=== PATIENT | male | born 1965 | race African-American/Black ===

== ENCOUNTER 2017-01-05 08:58 | Inpatient (IN) | payer OTHER ==
[2017-01-05 09:06] VITALS: BMI 32.1
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
[2017-01-05] MEDS ORDERED: MENTHOL/PHENOL 1 EACH UD MM PRN (12:08)
[2017-01-05] MEDS ORDERED: LOPERAMIDE HCL 2 MG CAPSULE PO PRN (12:08)
[2017-01-05] MEDS ORDERED: ACETAMINOPHEN 325 MG TABLET (FP) PO PRN (12:08)
[2017-01-05] MEDS ORDERED: hydrOXYzine PAMOATE 25 MG CAPSULE (FP) PO PRN (12:08)
[2017-01-05] MEDS ORDERED: MAGNESIUM HYDROX 2400MG/30ML ORAL SUSPENSION 30 ML CUP PO PRN (12:08)
[2017-01-05] MEDS ORDERED: IBUPROFEN 400 MG TABLET (FP) PO PRN (12:08)
[2017-01-05] MEDS ORDERED: MAGNESIUM CITRATE 300 ML BOTTLE PO PRN (12:08)
[2017-01-05] MEDS ORDERED: P-EPHED 60MG/TRIPROLIDI 2.5MG TABLET PO PRN (12:08)
[2017-01-05] MEDS ORDERED: NICOTINE POLACRILEX 4 MG GUM BUC PRN (12:08)
[2017-01-05] MEDS ORDERED: METHADONE HCL 10 MG TABLET (FOR DETOX USE ONLY) PO ONE ×2 (12:17→23:00)
[2017-01-05] MEDS ORDERED: LIDOCAINE VISCOUS 2% ORAL/TOP 20 ML UNIT-DOSE CUP MM PRN (12:38)
[2017-01-05] MEDS: chlordiazePOXIDE HCL 25 MG CAPSULE PO PRN (12:38)
[2017-01-05] MEDS: NICOTINE 21 MG/24 HOURS TOPICAL PATCH TD SCH (12:38)
[2017-01-05 14:17] LABS: HIV 1 & 2 AB NEGATIVE; HIV 1 AGp24 NEGATIVE
[2017-01-05 16:46] LABS: URINE APPEARANCE CLEAR; URINE BILIRUBIN NEGATIVE (NEGATIVE); URINE COLOR LTYELLOW; URINE GLUCOSE (UA) NEGATIVE (NEGATIVE); URINE KETONE NEGATIVE (NEGATIVE); URINE LEUK ESTERASE NEGATIVE (NEGATIVE); URINE NITRITE NEGATIVE (NEGATIVE); URINE PROTEIN NEGATIVE (NEGATIVE); URINE UROBILINOGEN NEGATIVE E.U./dl (0.2-1.0)
[2017-01-05] MEDS ORDERED: chlordiazePOXIDE HCL 25 MG CAPSULE PO SCH (17:00)
[2017-01-05] MEDS: AMOX TR/POT CLAV 875MG/125MG TABLETS (FP) PO SCH (17:16)
[2017-01-05] MEDS: chlordiazePOXIDE HCL 25 MG CAPSULE PO SCH ×2 (17:17→22:17)
[2017-01-05 17:31] LABS: URINE BLOOD 2+ (NEGATIVE)
[2017-01-05 17:36] LABS: URINE MUCUS RARE; URINE RBC 6 /hpf (0-3); URINE WBC 1 /hpf (3-5)
--- NOTE | 2017-01-05 21:34 | EKG ---
Test Reason : Blood Pressure : / mmHG Vent. Rate : 076 BPM Atrial Rate : 076 BPM P-R Int : 136 ms QRS Dur : 076 ms QT Int : 410 ms P-R-T Axes : 035 053 044 degrees QTc Int : 461 ms NORMAL SINUS RHYTHM NORMAL ECG WHEN COMPARED WITH ECG OF 31-MAR-2016 12:44, NO SIGNIFICANT CHANGE WAS FOUND Confirmed by MANSI ZULETA MD ([id number]) on 01/05/2017 9:33:49 PM Referred By: Ismael Winter Confirmed By:MANSI ZULETA MD
[2017-01-05] MEDS: THIAMINE HCL 100 MG TABLET (FP) PO SCH (22:16)
[2017-01-05] MEDS: diphenhydrAMINE HCL 50 MG CAPSULE PO PRN (22:17)
[2017-01-06] MEDS: chlordiazePOXIDE HCL 25 MG CAPSULE PO PRN ×2 (00:21→08:36)
[2017-01-06] MEDS: guaiFENesin/D-METHORPHAN HB 10 ML UNIT-DOSE CUPS PO PRN ×2 (00:21→08:36)
[2017-01-06] MEDS: diphenhydrAMINE HCL 50 MG CAPSULE PO PRN (00:21)
[2017-01-06] MEDS ORDERED: IBUPROFEN 400 MG TABLET (FP) PO ONE (03:03)
[2017-01-06] MEDS: CYCLOBENZAPRINE HCL 10 MG TABLET (FP) PO PRN (03:16)
[2017-01-06] MEDS: MAG HYDROX/AL HYDROX/SIMETH 30 ML UNIT-DOSE CUP PO PRN ×2 (03:16→19:09)
[2017-01-06] MEDS: chlordiazePOXIDE HCL 25 MG CAPSULE PO SCH ×4 (05:33→22:11)
[2017-01-06] MEDS: AMOX TR/POT CLAV 875MG/125MG TABLETS (FP) PO SCH ×2 (08:00→17:13)
[2017-01-06] MEDS ORDERED: METHADONE HCL 10 MG TABLET (FOR DETOX USE ONLY) PO SCH (10:00)
[2017-01-06 10:11] LABS: MCH 30.5 pg (25.7-33.7); MCHC 32.4 g/dl (32.0-35.9); MEAN CELL VOLUME 94.1 fl (80-96); MEAN PLT VOLUME 9.3 fl (7.5-11.1); PLATELET COUNT 280 K/MM3 (134-434); RDW 14.2 % (11.9-15.9); WHITE BLOOD COUNT 12.3 K/mm3 (4.0-10.0)
[2017-01-06] MEDS: PRENATAL VITAMINS W/ FOLIC ACID TABLET (FP) PO SCH (10:21)
[2017-01-06] MEDS: NICOTINE 21 MG/24 HOURS TOPICAL PATCH TD SCH (10:22)
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
[2017-01-06 10:33] LABS: ALBUMIN 4.2 g/dl (3.4-5.0); ANION GAP 10 (8-16); CO2 26 mmol/L (21-32); CREATININE 1.2 mg/dL (0.7-1.3); GLUCOSE,RANDOM 140 mg/dL (74-106); SGOT/AST 18 U/L (15-37)
--- NOTE | 2017-01-06 10:54 | PN ---
S CIWA - CIWA Score Nausea/Vomitin (DIARRHEA) Muscle Tremors: 4-Moderate,w/Arms Extend Anxiety: 4-Mod. Anxious/Guarded Agitation: 4-Moderately Restless Paroxysmal Sweats: 1-Minimal Palms Moist Orientation: 0-Oriented Tacttile Disturbances: 3-Moderate Itch/Numb/Burn Auditory Disturbances: 0-None Visual Disturbances: 0-None Headache: 0-None Present CIWA-Ar Total Score: 21 S COWS - Scale Resting Pulse: 0= [place] 80 or Below Sweatin= Chills/Flushing Restless Observation: 3= Extraneous Movement Pupil Size: 2= Moderately Dilated Bone or Joint Aches: 4=Acute Joint/Muscle Pain Runny Nose/ Eye Tearin= Nasal Congestion GI Upset > 30mins: 2= Nausea/Diarrhea Tremor Observation of Outstretched Hands: 1= Tremor [employer], Not Seen Yawning Observation: 1= 1-2x During Session Anxiety or Irritability: 2=Irritable/Anxious Goose Flesh Skin: 0=Smooth Skin COWS Score: 17 [facility] Progress Note (SOAP) Subjective: ANXIETY,IRRITABILITY,SWEATS,DIARRHEA,BODY ACHES,COUGH, INTERMITTENT SLEEP. Objective: 01/06/17 10:52 Vital Signs Temperature 96.3 F L 01/06/17 10:45 Pulse Rate 68 01/06/17 10:45 Respiratory Rate 20 01/06/17 10:45 Blood Pressure 132/84 01/06/17 10:45 O2 Sat by Pulse Oximetry (%) Laboratory Last Values WBC 12.3 K/mm3 (4.0-10.0) H D 01/06/17 06:20 RBC 4.38 M/mm3 (4.00-5.60) 01/06/17 06:20 Hgb 13.3 GM/dL (11.7-16.9) 01/06/17 06:20 Hct 41.2 % (35.4-49) 01/06/17 06:20 MCV 94.1 fl (80-96) 01/06/17 06:20 MCHC 32.4 g/dl (32.0-35.9) 01/06/17 06:20 RDW 14.2 % (11.9-15.9) 01/06/17 06:20 Plt Count 280 K/MM3 (134-434) D 01/06/17 06:20 MPV 9.3 fl (7.5-11.1) 01/06/17 06:20 POC Glucometer 128 UNITS (()) 01/06/17 05:35 Urine Color Ltyellow 01/05/17 14:00 Urine Appearance Clear 01/05/17 14:00 Urine pH 5.0 (5.0-8.0) 01/05/17 14:00 Ur Specific [place] 1.018 (1.001-1.035) 01/05/17 14:00 Urine Protein Negative (NEGATIVE) 01/05/17 14:00 Urine Glucose (UA) Negative (NEGATIVE) 01/05/17 14:00 Urine Ketones Negative (NEGATIVE) 01/05/17 14:00 Urine Blood 2+ (NEGATIVE) H 01/05/17 14:00 Urine Nitrite Negative (NEGATIVE) 01/05/17 14:00 Urine Bilirubin Negative (NEGATIVE) 01/05/17 14:00 Urine Urobilinogen Negative E.U./dl (0.2-1.0) 01/05/17 14:00 Ur Leukocyte Esterase Negative (NEGATIVE) 01/05/17 14:00 Urine RBC 6 /hpf (0-3) 01/05/17 14:00 Urine WBC 1 /hpf (3-5) 01/05/17 14:00 Urine Mucus Rare 01/05/17 14:00 HIV 1&2 Antibody Screen Negative 01/05/17 11:00 HIV P24 Antigen Negative 01/05/17 11:00 Assessment: 01/06/17 10:52 WITHDRAWAL SX Plan: CONTINUE DETOX ROBITUSSIN DM PRN IMODIUM PRN FLEXERIL DIRECTED
[2017-01-06 11:02] LABS: ALK PHOS 87 U/L (45-117); BILIRUBIN,TOTAL 0.4 mg/dL (0.2-1.0); SGPT/ALT 21 U/L (12-78); TOT PROT 7.5 g/dl (6.4-8.2)
[2017-01-06] MEDS ORDERED: QUEtiapine FUMARATE 50 MG TABLET PO STA (12:08)
[2017-01-06] MEDS ORDERED: chlordiazePOXIDE HCL 25 MG CAPSULE PO ONE (15:19)
[2017-01-06] MEDS ORDERED: QUEtiapine FUMARATE 50 MG TABLET PO SCH (22:00)
[2017-01-06] MEDS: THIAMINE HCL 100 MG TABLET (FP) PO SCH (22:11)
[2017-01-06] MEDS: QUEtiapine FUMARATE 100 MG TABLET (FP) PO SCH (22:11)
[2017-01-06] MEDS: ZOLPIDEM TARTRATE 10 MG TABLET (PARK CARE ONLY) PO PRN (22:12)
[2017-01-07] MEDS: diphenhydrAMINE HCL 50 MG CAPSULE PO PRN (01:38)
[2017-01-07] MEDS: guaiFENesin/D-METHORPHAN HB 10 ML UNIT-DOSE CUPS PO PRN (01:38)
[2017-01-07] MEDS: chlordiazePOXIDE HCL 25 MG CAPSULE PO PRN (01:38)
[2017-01-07] MEDS: CYCLOBENZAPRINE HCL 10 MG TABLET (FP) PO PRN (03:45)
[2017-01-07] MEDS: chlordiazePOXIDE HCL 25 MG CAPSULE PO SCH ×2 (06:02→10:49)
[2017-01-07] MEDS: AMOX TR/POT CLAV 875MG/125MG TABLETS (FP) PO SCH ×2 (07:48→17:39)
--- NOTE | 2017-01-07 10:40 | PN ---
[facility] CIWA - CIWA Score Nausea/Vomitin-No Nausea/No Vomiting Muscle Tremors: 4-Moderate,w/Arms Extend Anxiety: 4-Mod. Anxious/Guarded Agitation: 3 Paroxysmal Sweats: 1-Minimal Palms Moist Orientation: 0-Oriented Tacttile Disturbances: 3-Moderate Itch/Numb/Burn Auditory Disturbances: 0-None Visual Disturbances: 0-None Headache: 0-None Present CIWA-Ar Total Score: 15 [facility] COWS - Scale Resting Pulse: 0= [place] 80 or Below Sweatin= Chills/Flushing Restless Observation: 3= Extraneous Movement Pupil Size: 2= Moderately Dilated Bone or Joint Aches: 4=Acute Joint/Muscle Pain Runny Nose/ Eye Tearin= Runny Nose/Eyes GI Upset > 30mins: 1= Stomach Cramp Tremor Observation of Outstretched Hands: 1= Tremor [place], Not Seen Yawning Observation: 1= 1-2x During Session Anxiety or Irritability: 2=Irritable/Anxious Goose Flesh Skin: 0=Smooth Skin COWS Score: 17 [facility] Progress Note (SOAP) Subjective: ANXIETY,SWEATS/CHILLS,TREMORS, BODY ACHES,FATIGUE,INTERMITTENT SLEEP. Objective: 01/07/17 10:40 Vital Signs Temperature 98.2 F 01/07/17 09:58 Pulse Rate 78 01/07/17 09:58 Respiratory Rate 18 01/07/17 09:58 Blood Pressure 131/87 01/07/17 09:58 O2 Sat by Pulse Oximetry (%) Laboratory Last Values WBC 12.3 K/mm3 (4.0-10.0) H D 01/06/17 06:20 RBC 4.38 M/mm3 (4.00-5.60) 01/06/17 06:20 Hgb 13.3 GM/dL (11.7-16.9) 01/06/17 06:20 Hct 41.2 % (35.4-49) 01/06/17 06:20 MCV 94.1 fl (80-96) 01/06/17 06:20 MCHC 32.4 g/dl (32.0-35.9) 01/06/17 06:20 RDW 14.2 % (11.9-15.9) 01/06/17 06:20 Plt Count 280 K/MM3 (134-434) D 01/06/17 06:20 MPV 9.3 fl (7.5-11.1) 01/06/17 06:20 Sodium 142 mmol/L (136-145) 01/06/17 06:20 Potassium 4.2 mmol/L (3.5-5.1) 01/06/17 06:20 Chloride 106 mmol/L (98-107) 01/06/17 06:20 Carbon Dioxide 26 mmol/L (21-32) 01/06/17 06:20 Anion Gap 10 (8-16) 01/06/17 06:20 BUN 13 mg/dL (7-18) 01/06/17 06:20 Creatinine 1.2 mg/dL (0.7-1.3) 01/06/17 06:20 Creat Clearance w eGFR > 60 (>60) 01/06/17 06:20 POC Glucometer 123 UNITS (()) 01/07/17 06:03 Random Glucose 140 mg/dL (74-106) H D 01/06/17 06:20 Calcium 9.0 mg/dL (8.5-10.1) 01/06/17 06:20 Total Bilirubin 0.4 mg/dL (0.2-1.0) 01/06/17 06:20 AST 18 U/L (15-37) 01/06/17 06:20 ALT 21 U/L (12-78) D 01/06/17 06:20 Alkaline Phosphatase 87 U/L (45-117) D 01/06/17 06:20 Total Protein 7.5 g/dl (6.4-8.2) 01/06/17 06:20 Albumin 4.2 g/dl (3.4-5.0) 01/06/17 06:20 Urine Color Ltyellow 01/05/17 14:00 Urine Appearance Clear 01/05/17 14:00 Urine pH 5.0 (5.0-8.0) 01/05/17 14:00 Ur Specific [place] 1.018 (1.001-1.035) 01/05/17 14:00 Urine Protein Negative (NEGATIVE) 01/05/17 14:00 Urine Glucose (UA) Negative (NEGATIVE) 01/05/17 14:00 Urine Ketones Negative (NEGATIVE) 01/05/17 14:00 Urine Blood 2+ (NEGATIVE) H 01/05/17 14:00 Urine Nitrite Negative (NEGATIVE) 01/05/17 14:00 Urine Bilirubin Negative (NEGATIVE) 01/05/17 14:00 Urine Urobilinogen Negative E.U./dl (0.2-1.0) 01/05/17 14:00 Ur Leukocyte Esterase Negative (NEGATIVE) 01/05/17 14:00 Urine RBC 6 /hpf (0-3) 01/05/17 14:00 Urine WBC 1 /hpf (3-5) 01/05/17 14:00 Urine Mucus Rare 01/05/17 14:00 RPR Titer Nonreactive (NONREACTIVE) 01/06/17 06:20 HIV 1&2 Antibody Screen Negative 01/05/17 11:00 HIV P24 Antigen Negative 01/05/17 11:00 Assessment: 01/07/17 10:40 WITHDRAWAL SX Plan: CONTINUE DETOX
[2017-01-07] MEDS: PRENATAL VITAMINS W/ FOLIC ACID TABLET (FP) PO SCH (10:49)
[2017-01-07] MEDS: METHADONE HCL 5 MG TABLET (FOR DETOX USE ONLY) PO SCH (10:49)
[2017-01-07] MEDS: NICOTINE 21 MG/24 HOURS TOPICAL PATCH TD SCH (10:50)
[2017-01-07] MEDS ORDERED: QUEtiapine FUMARATE 100 MG TABLET (FP) PO STA (13:59)
[2017-01-07] MEDS: CYCLOBENZAPRINE HCL 10 MG TABLET (FP) PO SCH ×2 (14:11→22:17)
[2017-01-07] MEDS: QUEtiapine FUMARATE 100 MG TABLET (FP) PO SCH ×2 (14:23→22:16)
--- NOTE | 2017-01-07 14:25 | PN ---
[facility] Progress Note Note: C/O LEFT LOWER ABDOMEN DISCOMFORT X 24 HRS. EXAM: SOFT SLIGHT TENDERNESS TO PALPATION. NO SWELLING NOTED. PLAN:INCREASE PO FLUIDS FLEXERIL AND MOTRIN DIRECTED.
[2017-01-07] MEDS: chlordiazePOXIDE 5 MG CAPSULE PO SCH ×2 (17:39→22:17)
[2017-01-07] MEDS: MAG HYDROX/AL HYDROX/SIMETH 30 ML UNIT-DOSE CUP PO PRN (19:50)
[2017-01-07] MEDS: ZOLPIDEM TARTRATE 10 MG TABLET (PARK CARE ONLY) PO PRN (22:16)
[2017-01-07] MEDS: THIAMINE HCL 100 MG TABLET (FP) PO SCH (22:16)
[2017-01-08] MEDS: diphenhydrAMINE HCL 50 MG CAPSULE PO PRN (00:34)
[2017-01-08] MEDS: chlordiazePOXIDE 5 MG CAPSULE PO SCH ×2 (05:41→10:31)
[2017-01-08] MEDS: CYCLOBENZAPRINE HCL 10 MG TABLET (FP) PO SCH ×3 (05:41→22:23)
[2017-01-08] MEDS: AMOX TR/POT CLAV 875MG/125MG TABLETS (FP) PO SCH ×2 (07:33→17:09)
--- NOTE | 2017-01-08 10:02 | PN ---
[facility] Progress Note (SOAP) Subjective: Pt. c/o lt. sided abd. pain with a mass in lt. groin. Objective: 01/08/17 09:59 Vital Signs - 8 hr 01/08/17 01/08/17 03:30 06:31 Temperature 97.6 F Pulse Rate 80 Respiratory 18 18 Rate Blood Pressure 115/73 Laboratory Last Values WBC 12.3 K/mm3 (4.0-10.0) H D 01/06/17 06:20 RBC 4.38 M/mm3 (4.00-5.60) 01/06/17 06:20 Hgb 13.3 GM/dL (11.7-16.9) 01/06/17 06:20 Hct 41.2 % (35.4-49) 01/06/17 06:20 MCV 94.1 fl (80-96) 01/06/17 06:20 MCHC 32.4 g/dl (32.0-35.9) 01/06/17 06:20 RDW 14.2 % (11.9-15.9) 01/06/17 06:20 Plt Count 280 K/MM3 (134-434) D 01/06/17 06:20 MPV 9.3 fl (7.5-11.1) 01/06/17 06:20 Sodium 142 mmol/L (136-145) 01/06/17 06:20 Potassium 4.2 mmol/L (3.5-5.1) 01/06/17 06:20 Chloride 106 mmol/L (98-107) 01/06/17 06:20 Carbon Dioxide 26 mmol/L (21-32) 01/06/17 06:20 Anion Gap 10 (8-16) 01/06/17 06:20 BUN 13 mg/dL (7-18) 01/06/17 06:20 Creatinine 1.2 mg/dL (0.7-1.3) 01/06/17 06:20 Creat Clearance w eGFR > 60 (>60) 01/06/17 06:20 POC Glucometer 124 UNITS (()) 01/08/17 05:50 Random Glucose 140 mg/dL (74-106) H D 01/06/17 06:20 Calcium 9.0 mg/dL (8.5-10.1) 01/06/17 06:20 Total Bilirubin 0.4 mg/dL (0.2-1.0) 01/06/17 06:20 AST 18 U/L (15-37) 01/06/17 06:20 ALT 21 U/L (12-78) D 01/06/17 06:20 Alkaline Phosphatase 87 U/L (45-117) D 01/06/17 06:20 Total Protein 7.5 g/dl (6.4-8.2) 01/06/17 06:20 Albumin 4.2 g/dl (3.4-5.0) 01/06/17 06:20 Urine Color Ltyellow 01/05/17 14:00 Urine Appearance Clear 01/05/17 14:00 Urine pH 5.0 (5.0-8.0) 01/05/17 14:00 Ur Specific [place] 1.018 (1.001-1.035) 01/05/17 14:00 Urine Protein Negative (NEGATIVE) 01/05/17 14:00 Urine Glucose (UA) Negative (NEGATIVE) 01/05/17 14:00 Urine Ketones Negative (NEGATIVE) 01/05/17 14:00 Urine Blood 2+ (NEGATIVE) H 01/05/17 14:00 Urine Nitrite Negative (NEGATIVE) 01/05/17 14:00 Urine Bilirubin Negative (NEGATIVE) 01/05/17 14:00 Urine Urobilinogen Negative E.U./dl (0.2-1.0) 01/05/17 14:00 Ur Leukocyte Esterase Negative (NEGATIVE) 01/05/17 14:00 Urine RBC 6 /hpf (0-3) 01/05/17 14:00 Urine WBC 1 /hpf (3-5) 01/05/17 14:00 Urine Mucus Rare 01/05/17 14:00 RPR Titer Nonreactive (NONREACTIVE) 01/06/17 06:20 HIV 1&2 Antibody Screen Negative 01/05/17 11:00 HIV P24 Antigen Negative 01/05/17 11:00 Exam Abd. : Normoactive BS, very tender LUQ, a small mass lt. groin most likely a lymph node. Assessment: 01/08/17 10:01 Withdrawal sx. Abdominal pain Plan: continue detox KUB
[2017-01-08] MEDS: METHADONE HCL 5 MG TABLET (FOR DETOX USE ONLY) PO SCH (10:30)
[2017-01-08] MEDS: PRENATAL VITAMINS W/ FOLIC ACID TABLET (FP) PO SCH (10:30)
[2017-01-08] MEDS: NICOTINE 21 MG/24 HOURS TOPICAL PATCH TD SCH (10:31)
[2017-01-08] MEDS: QUEtiapine FUMARATE 100 MG TABLET (FP) PO SCH ×2 (10:33→22:23)
[2017-01-08] MEDS: chlordiazePOXIDE HCL 10 MG CAPSULE PO SCH ×2 (17:09→22:23)
[2017-01-08] MEDS ORDERED: INSULIN (NOVOLOG) ASPART 100 UNITS/ML 10ML VIAL ONE (17:12)
[2017-01-08] MEDS: INSULIN SLIDING SCALE (NOVOLOG) 1 VIAL SQ SCH (17:14)
[2017-01-08] MEDS: MAG HYDROX/AL HYDROX/SIMETH 30 ML UNIT-DOSE CUP PO PRN (20:20)
[2017-01-08] MEDS: THIAMINE HCL 100 MG TABLET (FP) PO SCH (22:23)
[2017-01-08] MEDS: ZOLPIDEM TARTRATE 10 MG TABLET (PARK CARE ONLY) PO PRN (22:23)
[2017-01-09] MEDS: chlordiazePOXIDE HCL 10 MG CAPSULE PO SCH ×2 (06:31→10:20)
[2017-01-09] MEDS ORDERED: CYCLOBENZAPRINE HCL 10 MG TABLET (FP) ONE (06:33)
[2017-01-09] MEDS: CYCLOBENZAPRINE HCL 10 MG TABLET (FP) PO SCH ×3 (06:34→22:25)
[2017-01-09] MEDS: INSULIN SLIDING SCALE (NOVOLOG) 1 VIAL SQ SCH ×2 (07:30→16:34)
[2017-01-09] MEDS: AMOX TR/POT CLAV 875MG/125MG TABLETS (FP) PO SCH ×2 (08:52→17:22)
[2017-01-09] MEDS ORDERED: METHADONE HCL 10 MG TABLET (FOR DETOX USE ONLY) PO SCH (10:00)
[2017-01-09] MEDS: PRENATAL VITAMINS W/ FOLIC ACID TABLET (FP) PO SCH (10:19)
[2017-01-09] MEDS: NICOTINE 21 MG/24 HOURS TOPICAL PATCH TD SCH (10:19)
[2017-01-09] MEDS: QUEtiapine FUMARATE 100 MG TABLET (FP) PO SCH ×2 (10:20→22:25)
--- NOTE | 2017-01-09 11:26 | PN ---
S Progress Note (SOAP) Subjective: Interrupted sleep, slight anxiety, reports constipation, Objective: Vital Signs Temperature 95.3 F L 01/09/17 09:49 Pulse Rate 86 01/09/17 09:49 Respiratory Rate 18 01/09/17 09:49 Blood Pressure 130/80 01/09/17 09:49 O2 Sat by Pulse Oximetry (%) Laboratory Last Values WBC 12.3 K/mm3 (4.0-10.0) H D 01/06/17 06:20 RBC 4.38 M/mm3 (4.00-5.60) 01/06/17 06:20 Hgb 13.3 GM/dL (11.7-16.9) 01/06/17 06:20 Hct 41.2 % (35.4-49) 01/06/17 06:20 MCV 94.1 fl (80-96) 01/06/17 06:20 MCHC 32.4 g/dl (32.0-35.9) 01/06/17 06:20 RDW 14.2 % (11.9-15.9) 01/06/17 06:20 Plt Count 280 K/MM3 (134-434) D 01/06/17 06:20 MPV 9.3 fl (7.5-11.1) 01/06/17 06:20 Sodium 142 mmol/L (136-145) 01/06/17 06:20 Potassium 4.2 mmol/L (3.5-5.1) 01/06/17 06:20 Chloride 106 mmol/L (98-107) 01/06/17 06:20 Carbon Dioxide 26 mmol/L (21-32) 01/06/17 06:20 Anion Gap 10 (8-16) 01/06/17 06:20 BUN 13 mg/dL (7-18) 01/06/17 06:20 Creatinine 1.2 mg/dL (0.7-1.3) 01/06/17 06:20 Creat Clearance w eGFR > 60 (>60) 01/06/17 06:20 POC Glucometer 103 UNITS (()) 01/09/17 06:38 Random Glucose 140 mg/dL (74-106) H D 01/06/17 06:20 Calcium 9.0 mg/dL (8.5-10.1) 01/06/17 06:20 Total Bilirubin 0.4 mg/dL (0.2-1.0) 01/06/17 06:20 AST 18 U/L (15-37) 01/06/17 06:20 ALT 21 U/L (12-78) D 01/06/17 06:20 Alkaline Phosphatase 87 U/L (45-117) D 01/06/17 06:20 Total Protein 7.5 g/dl (6.4-8.2) 01/06/17 06:20 Albumin 4.2 g/dl (3.4-5.0) 01/06/17 06:20 Urine Color Ltyellow 01/05/17 14:00 Urine Appearance Clear 01/05/17 14:00 Urine pH 5.0 (5.0-8.0) 01/05/17 14:00 Ur Specific [place] 1.018 (1.001-1.035) 01/05/17 14:00 Urine Protein Negative (NEGATIVE) 01/05/17 14:00 Urine Glucose (UA) Negative (NEGATIVE) 01/05/17 14:00 Urine Ketones Negative (NEGATIVE) 01/05/17 14:00 Urine Blood 2+ (NEGATIVE) H 01/05/17 14:00 Urine Nitrite Negative (NEGATIVE) 01/05/17 14:00 Urine Bilirubin Negative (NEGATIVE) 01/05/17 14:00 Urine Urobilinogen Negative E.U./dl (0.2-1.0) 01/05/17 14:00 Ur Leukocyte Esterase Negative (NEGATIVE) 01/05/17 14:00 Urine RBC 6 /hpf (0-3) 01/05/17 14:00 Urine WBC 1 /hpf (3-5) 01/05/17 14:00 Urine Mucus Rare 01/05/17 14:00 RPR Titer Nonreactive (NONREACTIVE) 01/06/17 06:20 HIV 1&2 Antibody Screen Negative 01/05/17 11:00 HIV P24 Antigen Negative 01/05/17 11:00 labs noted Assessment: withdrawal symptoms Plan: Bowel regimen added continue detox
[2017-01-09] MEDS ORDERED: SODIUM PHOSPHATE/NA BIPHOS 133 ML ENEMA PR ONE (15:21)
[2017-01-09] MEDS: ZOLPIDEM TARTRATE 10 MG TABLET (PARK CARE ONLY) PO PRN (21:59)
[2017-01-09] MEDS ORDERED: DOCUSATE SODIUM 100 MG CAPSULE (FP) PO SCH (22:00)
[2017-01-09] MEDS: THIAMINE HCL 100 MG TABLET (FP) PO SCH (22:25)
[2017-01-09] MEDS: MAG HYDROX/AL HYDROX/SIMETH 30 ML UNIT-DOSE CUP PO PRN (23:07)
[2017-01-10] MEDS: diphenhydrAMINE HCL 50 MG CAPSULE PO PRN (00:34)
[2017-01-10] MEDS ORDERED: METHADONE HCL 5 MG TABLET (FOR DETOX USE ONLY) PO SCH (06:00)
[2017-01-10] MEDS: CYCLOBENZAPRINE HCL 10 MG TABLET (FP) PO SCH (06:23)
[2017-01-10 07:01] VITALS: BP 107/74; PULSE 77; TEMP 95.8
[2017-01-10] MEDS: AMOX TR/POT CLAV 875MG/125MG TABLETS (FP) PO SCH (07:03)
[2017-01-10] MEDS: INSULIN SLIDING SCALE (NOVOLOG) 1 VIAL SQ SCH (07:04)
--- NOTE | 2017-01-10 12:04 | DS ---
[facility] Detox Discharge Summary Admission Date: 01/05/17 Discharge Date: 01/10/17 - History Present History: Alcohol Dependence, Opioid Dependence Pertinent Past History: HTN, GERD, DMT2, HLD - Physical Exam Results Vital Signs: Vital Signs Temperature 95.8 F L 01/10/17 07:01 Pulse Rate 77 01/10/17 07:01 Respiratory Rate 16 01/10/17 07:01 Blood Pressure 107/74 01/10/17 07:01 O2 Sat by Pulse Oximetry (%) Pertinent Admission Physical Exam Findings: Withdrawal symptoms Laboratory Tests 01/05/17 01/05/17 01/05/17 10:51 11:00 14:00 WBC RBC Hgb Hct MCV MCHC RDW Plt Count MPV Sodium Potassium Chloride Carbon Dioxide Anion Gap BUN Creatinine Creat Clearance w eGFR POC Glucometer 111 Random Glucose Calcium Total Bilirubin AST ALT Alkaline Phosphatase Total Protein Albumin Urine Color Ltyellow Urine Appearance Clear Urine pH 5.0 Ur Specific [place] 1.018 Urine Protein Negative Urine Glucose (UA) Negative Urine Ketones Negative Urine Blood 2+ H Urine Nitrite Negative Urine Bilirubin Negative Urine Urobilinogen Negative Ur Leukocyte Esterase Negative Urine RBC 6 Urine WBC 1 Urine Mucus Rare RPR Titer HIV 1&2 Antibody Screen Negative HIV P24 Antigen Negative 01/05/17 01/06/17 01/06/17 16:16 05:35 06:20 WBC 12.3 H D RBC 4.38 Hgb 13.3 Hct 41.2 MCV 94.1 MCHC 32.4 RDW 14.2 Plt Count 280 D MPV 9.3 Sodium Potassium Chloride Carbon Dioxide Anion Gap BUN Creatinine Creat Clearance w eGFR POC Glucometer 136 128 Random Glucose Calcium Total Bilirubin AST ALT Alkaline Phosphatase Total Protein Albumin Urine Color Urine Appearance Urine pH Ur Specific [place] Urine Protein Urine Glucose (UA) Urine Ketones Urine Blood Urine Nitrite Urine Bilirubin Urine Urobilinogen Ur Leukocyte Esterase Urine RBC Urine WBC Urine Mucus RPR Titer HIV 1&2 Antibody Screen HIV P24 Antigen 01/06/17 01/06/17 01/06/17 06:20 06:20 16:13 WBC RBC Hgb Hct MCV MCHC RDW Plt Count MPV Sodium 142 Potassium 4.2 Chloride 106 Carbon Dioxide 26 Anion Gap 10 BUN 13 Creatinine 1.2 Creat Clearance w eGFR > 60 POC Glucometer 116 Random Glucose 140 H D Calcium 9.0 Total Bilirubin 0.4 AST 18 ALT 21 D Alkaline Phosphatase 87 D Total Protein 7.5 Albumin 4.2 Urine Color Urine Appearance Urine pH Ur Specific [place] Urine Protein Urine Glucose (UA) Urine Ketones Urine Blood Urine Nitrite Urine Bilirubin Urine Urobilinogen Ur Leukocyte Esterase Urine RBC Urine WBC Urine Mucus RPR Titer Nonreactive HIV 1&2 Antibody Screen HIV P24 Antigen 01/07/17 01/07/17 01/08/17 06:03 16:21 05:50 WBC RBC Hgb Hct MCV MCHC RDW Plt Count MPV Sodium Potassium Chloride Carbon Dioxide Anion Gap BUN Creatinine Creat Clearance w eGFR POC Glucometer 123 124 124 Random Glucose Calcium Total Bilirubin AST ALT Alkaline Phosphatase Total Protein Albumin Urine Color Urine Appearance Urine pH Ur Specific [place] Urine Protein Urine Glucose (UA) Urine Ketones Urine Blood Urine Nitrite Urine Bilirubin Urine Urobilinogen Ur Leukocyte Esterase Urine RBC Urine WBC Urine Mucus RPR Titer HIV 1&2 Antibody Screen HIV P24 Antigen 01/08/17 01/09/17 01/09/17 16:24 06:38 16:23 WBC RBC Hgb Hct MCV MCHC RDW Plt Count MPV Sodium Potassium Chloride Carbon Dioxide Anion Gap BUN Creatinine Creat Clearance w eGFR POC Glucometer 213 103 142 Random Glucose Calcium Total Bilirubin AST ALT Alkaline Phosphatase Total Protein Albumin Urine Color Urine Appearance Urine pH Ur Specific [place] Urine Protein Urine Glucose (UA) Urine Ketones Urine Blood Urine Nitrite Urine Bilirubin Urine Urobilinogen Ur Leukocyte Esterase Urine RBC Urine WBC Urine Mucus RPR Titer HIV 1&2 Antibody Screen HIV P24 Antigen 01/10/17 06:25 WBC RBC Hgb Hct MCV MCHC RDW Plt Count MPV Sodium Potassium Chloride Carbon Dioxide Anion Gap BUN Creatinine Creat Clearance w eGFR POC Glucometer 137 Random Glucose Calcium Total Bilirubin AST ALT Alkaline Phosphatase Total Protein Albumin Urine Color Urine Appearance Urine pH Ur Specific [place] Urine Protein Urine Glucose (UA) Urine Ketones Urine Blood Urine Nitrite Urine Bilirubin Urine Urobilinogen Ur Leukocyte Esterase Urine RBC Urine WBC Urine Mucus RPR Titer HIV 1&2 Antibody Screen HIV P24 Antigen Labs noted - Treatment Hospital Course: Detox Protocol Followed, Detoxed Safely, Responded well, Discharged Condition Good - Medication Discharge Medications: Ambulatory Orders Quetiapine Fumarate [Seroquel -] 300 mg PO HS #30 tab 07/23/16 Zolpidem Tartrate [Ambien] 10 mg PO HS 01/05/17 Quetiapine Fumarate [Seroquel] 100 mg PO HS #30 tablet 01/06/17 - Diagnosis (1) Alcohol dependence with uncomplicated withdrawal Status: Acute (2) Nicotine dependence Status: Chronic Qualifiers: Nicotine product type: cigarettes Substance use status: uncomplicated Qualified Code(s): F17.210 - Nicotine dependence, cigarettes, uncomplicated (3) Opioid dependence with withdrawal Status: Acute (4) Bipolar II disorder Status: Chronic (5) DM (diabetes mellitus), type 2 with peripheral vascular complications Status: Chronic (6) GERD (gastroesophageal reflux disease) Status: Chronic Qualifiers: Esophagitis presence: without esophagitis Qualified Code(s): K21.9 - Gastro-esophageal reflux disease without esophagitis (7) Hypercholesteremia Status: Chronic (8) Hypertension Status: Chronic Qualifiers: Hypertension type: essential hypertension Qualified Code(s): I10 - Essential (primary) hypertension - AMA Did Patient Leave Against Medical Advice: No
== END 2017-01-10 09:20 | disposition home or self-care (01) | DRG 773 ==
LOC: YASAS 08:58 → Y3N 11:54
PROVIDERS: ADMIT Internal Medicine; ATTEND Internal Medicine
PROC: HZ2ZZZZ Detoxification Services for Substance Abuse Treatment (ICD-10-PCS; principal; 2017-01-10)
DX: F11.23 Opioid dependence with withdrawal (principal); F10.230 Alcohol dependence with withdrawal, uncomplicated; F17.210 Nicotine dependence, cigarettes, uncomplicated; F31.81 Bipolar II disorder; I10 Essential (primary) hypertension; E11.51 Type 2 diabetes mellitus with diabetic peripheral angiopathy without gangrene; Z79.4 Long term (current) use of insulin; K21.9 Gastro-esophageal reflux disease without esophagitis; E78.00 Pure hypercholesterolemia, unspecified; G47.00 Insomnia, unspecified; Z86.73 Personal history of transient ischemic attack (TIA), and cerebral infarction without residual deficits
CPT/HCPCS: 36415; 74000-TC; 80053; 81003; 81015; 85027; 86593; 87389; 93005; 93010

== ENCOUNTER 2017-02-24 09:19 | Inpatient (IN) | payer OTHER ==
[~2017-02-24 09:19] MED LIST: QUEtiapine FUMARATE 50 MG TABLET PO ONE
[2017-02-24 09:55] VITALS: BMI 33.0
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
[2017-02-24] MEDS ORDERED: NICOTINE POLACRILEX 4 MG GUM BC PRN (11:51)
[2017-02-24] MEDS ORDERED: ACETAMINOPHEN 325 MG TABLET (FP) PO PRN (11:51)
[2017-02-24] MEDS ORDERED: MAGNESIUM HYDROX 2400MG/30ML ORAL SUSPENSION 30 ML CUP PO PRN (11:51)
[2017-02-24] MEDS ORDERED: guaiFENesin/D-METHORPHAN HB 10 ML UNIT-DOSE CUPS PO PRN (11:51)
[2017-02-24] MEDS ORDERED: P-EPHED 60MG/TRIPROLIDI 2.5MG TABLET PO PRN (11:51)
[2017-02-24] MEDS ORDERED: MAGNESIUM CITRATE 300 ML BOTTLE PO PRN (11:51)
[2017-02-24] MEDS ORDERED: LOPERAMIDE HCL 2 MG CAPSULE PO PRN (11:51)
[2017-02-24] MEDS ORDERED: IBUPROFEN 400 MG TABLET (FP) PO PRN (11:51)
[2017-02-24] MEDS ORDERED: MENTHOL/PHENOL 1 EACH UD MM PRN (11:51)
[2017-02-24] MEDS ORDERED: chlordiazePOXIDE HCL 25 MG CAPSULE PO PRN (13:07)
[2017-02-24] MEDS: AMOXICILLIN 250 MG CAPSULE PO SCH ×2 (13:49→22:47)
[2017-02-24] MEDS: chlordiazePOXIDE HCL 25 MG CAPSULE PO PRN (13:50)
[2017-02-24] MEDS ORDERED: METHADONE HCL 10 MG TABLET (FOR DETOX USE ONLY) PO ONE ×2 (14:00→23:00)
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
[2017-02-24 16:57] LABS: URINE APPEARANCE CLEAR; URINE BILIRUBIN NEGATIVE (NEGATIVE); URINE COLOR STRAW; URINE GLUCOSE (UA) NEGATIVE (NEGATIVE); URINE KETONE NEGATIVE (NEGATIVE); URINE LEUK ESTERASE NEGATIVE (NEGATIVE); URINE NITRITE NEGATIVE (NEGATIVE); URINE PROTEIN NEGATIVE (NEGATIVE); URINE UROBILINOGEN NEGATIVE E.U./dl (0.2-1.0)
[2017-02-24] MEDS ORDERED: chlordiazePOXIDE HCL 25 MG CAPSULE PO SCH (17:00)
[2017-02-24 17:02] LABS: URINE BLOOD 1+ (NEGATIVE)
[2017-02-24 17:07] LABS: URINE RBC <1 /hpf (0-3); URINE WBC 1 /hpf (3-5)
[2017-02-24] MEDS ORDERED: QUEtiapine FUMARATE 50 MG TABLET PO ONE (17:30)
[2017-02-24] MEDS: chlordiazePOXIDE HCL 25 MG CAPSULE PO SCH ×2 (17:38→22:46)
[2017-02-24] MEDS: hydrOXYzine PAMOATE 25 MG CAPSULE (FP) PO PRN (19:54)
[2017-02-24] MEDS: THIAMINE HCL 100 MG TABLET (FP) PO SCH (22:46)
[2017-02-24] MEDS: QUEtiapine FUMARATE 200 MG TABLET PO SCH (22:46)
[2017-02-25] MEDS: diphenhydrAMINE HCL 50 MG CAPSULE PO PRN ×2 (00:44→22:32)
[2017-02-25] MEDS: chlordiazePOXIDE HCL 25 MG CAPSULE PO PRN ×2 (03:23→20:06)
[2017-02-25] MEDS: chlordiazePOXIDE HCL 25 MG CAPSULE PO SCH ×4 (05:17→22:31)
[2017-02-25] MEDS: AMOXICILLIN 250 MG CAPSULE PO SCH (05:18)
--- NOTE | 2017-02-25 09:20 | PN ---
[facility] CIWA - CIWA Score Nausea/Vomitin Muscle Tremors: 2 Anxiety: 2 Agitation: 2 Paroxysmal Sweats: 3 Orientation: 3-Disoriented Date>2 days Tacttile Disturbances: 2-Mild Itch/Numbness/Burn Auditory Disturbances: 0-None Visual Disturbances: 0-None Headache: 0-None Present CIWA-Ar Total Score: 17 [facility] COWS - Scale Resting Pulse: 0= [place] 80 or Below Sweatin= Chills/Flushing Restless Observation: 1= Difficult to Sit Still Pupil Size: 1= Pupils >than Normal Bone or Joint Aches: 2= Severe Diffuse Aches Runny Nose/ Eye Tearin= Nasal Congestion GI Upset > 30mins: 2= Nausea/Diarrhea Tremor Observation of Outstretched Hands: 1= Tremor [place], Not Seen Yawning Observation: 0= None Anxiety or Irritability: 2=Irritable/Anxious Goose Flesh Skin: 0=Smooth Skin COWS Score: 11 [facility] Progress Note (SOAP) Subjective: interrupted sleep, sweats, nausea, joint pains Objective: 02/25/17 09:18 Vital Signs Temperature 97.9 F 02/25/17 06:53 Pulse Rate 62 02/25/17 06:53 Respiratory Rate 16 02/25/17 06:53 Blood Pressure 98/60 02/25/17 06:53 O2 Sat by Pulse Oximetry (%) Laboratory Tests 02/24/17 02/24/17 02/25/17 10:24 13:00 06:13 POC Glucometer 125 96 Urine Color Straw Urine Appearance Clear Urine pH 5.0 Ur Specific [place] 1.013 Urine Protein Negative Urine Glucose (UA) Negative Urine Ketones Negative Urine Blood 1+ H Urine Nitrite Negative Urine Bilirubin Negative Urine Urobilinogen Negative Ur Leukocyte Esterase Negative Urine RBC <1 Urine WBC 1 Ur Epithelial Cells Rare pending labs pt aox3 ambulating in nad Assessment: 02/25/17 09:19 withdrawal sx' insomnia Plan: cont detox increase fluids f/up pending labs pysch for sleep meds
[2017-02-25 09:49] LABS: MCH 32.2 pg (25.7-33.7); MCHC 33.8 g/dl (32.0-35.9); MEAN CELL VOLUME 95.5 fl (80-96); MEAN PLT VOLUME 8.8 fl (7.5-11.1); PLATELET COUNT 284 K/MM3 (134-434); RDW 13.9 % (11.9-15.9); WHITE BLOOD COUNT 9.2 K/mm3 (4.0-10.0)
[2017-02-25] MEDS ORDERED: METHADONE HCL 10 MG TABLET (FOR DETOX USE ONLY) PO SCH (10:00)
[2017-02-25 10:15] LABS: ALK PHOS 81 U/L (45-117); ANION GAP 11 (8-16); BILIRUBIN,TOTAL 0.5 mg/dL (0.2-1.0); CALCIUM 8.7 mg/dL (8.5-10.1); CO2 25 mmol/L (21-32); COCKROFT - GAULT 121.6; GLUCOSE,RANDOM 124 mg/dL (74-106); SGOT/AST 18 U/L (15-37); SGPT/ALT 23 U/L (12-78); TOT PROT 7.7 g/dl (6.4-8.2)
[2017-02-25] MEDS: PRENATAL VITAMINS W/ FOLIC ACID TABLET (FP) PO SCH (10:33)
[2017-02-25] MEDS: ASPIRIN 81 MG CHEWABLE TABLETS PO SCH (10:33)
[2017-02-25] MEDS: NICOTINE 21 MG/24 HOURS TOPICAL PATCH TD SCH (10:34)
--- NOTE | 2017-02-25 11:48 | EKG ---
Test Reason : Blood Pressure : / mmHG Vent. Rate : 078 BPM Atrial Rate : 078 BPM P-R Int : 150 ms QRS Dur : 068 ms QT Int : 404 ms P-R-T Axes : 073 039 033 degrees QTc Int : 460 ms NORMAL SINUS RHYTHM NORMAL ECG WHEN COMPARED WITH ECG OF 05-JAN-2017 12:42, NO SIGNIFICANT CHANGE WAS FOUND Confirmed by ANTOINETTE YBARRA MD ([id number]) on 02/25/2017 11:48:25 AM Referred By: Diogo Hemphill Confirmed By:ANTOINETTE YBARRA MD
[2017-02-25] MEDS: hydrOXYzine PAMOATE 25 MG CAPSULE (FP) PO PRN (11:51)
[2017-02-25] MEDS: MAG HYDROX/AL HYDROX/SIMETH 30 ML UNIT-DOSE CUP PO PRN ×2 (16:35→22:39)
[2017-02-25] MEDS ORDERED: chlordiazePOXIDE HCL 25 MG CAPSULE PO SCH (17:00)
[2017-02-25] MEDS: QUEtiapine FUMARATE 200 MG TABLET PO SCH (22:31)
[2017-02-25] MEDS: THIAMINE HCL 100 MG TABLET (FP) PO SCH (22:55)
[2017-02-26] MEDS: diphenhydrAMINE HCL 50 MG CAPSULE PO PRN (00:37)
[2017-02-26] MEDS: chlordiazePOXIDE HCL 25 MG CAPSULE PO PRN (00:37)
[2017-02-26] MEDS: hydrOXYzine PAMOATE 25 MG CAPSULE (FP) PO PRN ×2 (03:22→10:21)
[2017-02-26] MEDS: chlordiazePOXIDE HCL 25 MG CAPSULE PO SCH ×2 (05:19→10:16)
[2017-02-26] MEDS: ASPIRIN 81 MG CHEWABLE TABLETS PO SCH (10:16)
[2017-02-26] MEDS: PRENATAL VITAMINS W/ FOLIC ACID TABLET (FP) PO SCH (10:16)
[2017-02-26] MEDS: NICOTINE 21 MG/24 HOURS TOPICAL PATCH TD SCH (10:17)
[2017-02-26] MEDS: METHADONE HCL 5 MG TABLET (FOR DETOX USE ONLY) PO SCH (10:17)
[2017-02-26] MEDS: MAG HYDROX/AL HYDROX/SIMETH 30 ML UNIT-DOSE CUP PO PRN (10:25)
--- NOTE | 2017-02-26 11:28 | PN ---
[facility] Progress Note Note: Psychiatry Attending's note : Patient seen. Reason : titration of seroquel. No evidence of sedation.Steady gait. As planned,seroquel dose can be increased. Seroquel 100 mg po daily + 200 mg po hs. Insomnia is addressed with zolpidem 10 mg po hs. Mr Pina is in agreement with this careplan. Nursing staff made aware.
[2017-02-26] MEDS: QUEtiapine FUMARATE 100 MG TABLET (FP) PO SCH (12:20)
--- NOTE | 2017-02-26 12:52 | PN ---
S CIWA - CIWA Score Nausea/Vomitin Muscle Tremors: 4-Moderate,w/Arms Extend Anxiety: 3 Agitation: 4-Moderately Restless Paroxysmal Sweats: 3 Orientation: 1-Uncertain about Date Tacttile Disturbances: 2-Mild Itch/Numbness/Burn Auditory Disturbances: 0-None Visual Disturbances: 0-None Headache: 3-Moderate CIWA-Ar Total Score: 23 [facility] COWS - Scale Resting Pulse: 0= [place] 80 or Below Sweatin= Chills/Flushing Restless Observation: 1= Difficult to Sit Still Pupil Size: 0= Normal to Room Light Bone or Joint Aches: 2= Severe Diffuse Aches Runny Nose/ Eye Tearin= None GI Upset > 30mins: 2= Nausea/Diarrhea Tremor Observation of Outstretched Hands: 2= Slight Tremor Visible Yawning Observation: 0= None Anxiety or Irritability: 2=Irritable/Anxious Goose Flesh Skin: 3=Piloerection COWS Score: 13 S Progress Note (SOAP) Subjective: Stomach Cramping, Nausea, Bosdy aches, H/A, Swearing, Interrupted sleep, Tremors. Objective: PT. A & O X 2 (DISORIENTED ABOUT DAY / DATE). PT. OBSERVED AMBULATING ON UNIT. Vital Signs Temperature 97.7 F 02/26/17 11:16 Pulse Rate 76 02/26/17 11:16 Respiratory Rate 18 02/26/17 11:16 Blood Pressure 126/77 02/26/17 11:16 O2 Sat by Pulse Oximetry (%) Laboratory Last Values WBC 9.2 K/mm3 (4.0-10.0) 02/25/17 06:00 RBC 4.41 M/mm3 (4.00-5.60) 02/25/17 06:00 Hgb 14.2 GM/dL (11.7-16.9) 02/25/17 06:00 Hct 42.1 % (35.4-49) 02/25/17 06:00 MCV 95.5 fl (80-96) 02/25/17 06:00 MCHC 33.8 g/dl (32.0-35.9) 02/25/17 06:00 RDW 13.9 % (11.9-15.9) 02/25/17 06:00 Plt Count 284 K/MM3 (134-434) 02/25/17 06:00 MPV 8.8 fl (7.5-11.1) 02/25/17 06:00 Sodium 142 mmol/L (136-145) 02/25/17 06:00 Potassium 4.2 mmol/L (3.5-5.1) 02/25/17 06:00 Chloride 106 mmol/L (98-107) 02/25/17 06:00 Carbon Dioxide 25 mmol/L (21-32) 02/25/17 06:00 Anion Gap 11 (8-16) 02/25/17 06:00 BUN 13 mg/dL (7-18) 02/25/17 06:00 Creatinine 1.0 mg/dL (0.7-1.3) 02/25/17 06:00 Creat Clearance w eGFR > 60 (>60) 02/25/17 06:00 POC Glucometer 126 UNITS (()) 02/26/17 06:08 Random Glucose 124 mg/dL (74-106) H 02/25/17 06:00 Calcium 8.7 mg/dL (8.5-10.1) 02/25/17 06:00 Total Bilirubin 0.5 mg/dL (0.2-1.0) D 02/25/17 06:00 AST 18 U/L (15-37) 02/25/17 06:00 ALT 23 U/L (12-78) 02/25/17 06:00 Alkaline Phosphatase 81 U/L (45-117) 02/25/17 06:00 Total Protein 7.7 g/dl (6.4-8.2) 02/25/17 06:00 Albumin 4.0 g/dl (3.4-5.0) 02/25/17 06:00 Urine Color Straw 02/24/17 13:00 Urine Appearance Clear 02/24/17 13:00 Urine pH 5.0 (5.0-8.0) 02/24/17 13:00 Ur Specific [place] 1.013 (1.001-1.035) 02/24/17 13:00 Urine Protein Negative (NEGATIVE) 02/24/17 13:00 Urine Glucose (UA) Negative (NEGATIVE) 02/24/17 13:00 Urine Ketones Negative (NEGATIVE) 02/24/17 13:00 Urine Blood 1+ (NEGATIVE) H 02/24/17 13:00 Urine Nitrite Negative (NEGATIVE) 02/24/17 13:00 Urine Bilirubin Negative (NEGATIVE) 02/24/17 13:00 Urine Urobilinogen Negative E.U./dl (0.2-1.0) 02/24/17 13:00 Ur Leukocyte Esterase Negative (NEGATIVE) 02/24/17 13:00 Urine RBC <1 /hpf (0-3) 02/24/17 13:00 Urine WBC 1 /hpf (3-5) 02/24/17 13:00 Ur Epithelial Cells Rare /hpf (FEW) 02/24/17 13:00 RPR Titer Nonreactive (NONREACTIVE) 02/25/17 06:00 LABS NOTED. Assessment: 02/26/17 12:52 WITHDRAWAL SYMPTOMS. Plan: CONTINUE DETOX. BGM ACBK TOMORROW. ADVISED PATIENT TO FOLLOW-UP WITH [facility]RA[facility] / REHAB MEDICAL PROVIDER AFTER DISCHARGE FROM DETOX FOR ABNORMAL ADMISSION LAB VALUES AND FOR HISTORY OF BORDERLINE DIABETES / ELEVATED BGM LEVELS.
[2017-02-26] MEDS: PANTOPRAZOLE 40 MG TABLET (FP) PO SCH (16:36)
[2017-02-26] MEDS ORDERED: chlordiazePOXIDE 5 MG CAPSULE PO SCH (17:00)
[2017-02-26] MEDS: chlordiazePOXIDE 5 MG CAPSULE PO SCH ×2 (17:59→22:19)
[2017-02-26] MEDS: ZOLPIDEM TARTRATE 10 MG TABLET (PARK CARE ONLY) PO PRN (22:18)
[2017-02-26] MEDS: QUEtiapine FUMARATE 200 MG TABLET PO SCH (22:18)
[2017-02-26] MEDS: THIAMINE HCL 100 MG TABLET (FP) PO SCH (22:18)
[2017-02-27] MEDS: chlordiazePOXIDE HCL 25 MG CAPSULE PO PRN ×2 (02:05→12:02)
[2017-02-27] MEDS: chlordiazePOXIDE 5 MG CAPSULE PO SCH ×2 (06:00→10:31)
[2017-02-27] MEDS: PRENATAL VITAMINS W/ FOLIC ACID TABLET (FP) PO SCH (10:31)
[2017-02-27] MEDS: ASPIRIN 81 MG CHEWABLE TABLETS PO SCH (10:31)
[2017-02-27] MEDS: NICOTINE 21 MG/24 HOURS TOPICAL PATCH TD SCH (10:31)
[2017-02-27] MEDS: PANTOPRAZOLE 40 MG TABLET (FP) PO SCH (10:31)
[2017-02-27] MEDS: QUEtiapine FUMARATE 100 MG TABLET (FP) PO SCH (10:31)
[2017-02-27] MEDS: METHADONE HCL 5 MG TABLET (FOR DETOX USE ONLY) PO SCH (10:31)
--- NOTE | 2017-02-27 14:58 | PN ---
[facility] Progress Note (SOAP) Subjective: ALERT,IRRITABLE.ANXIOUS,INTERRUPTED SLEEP,PAIN IN THE BODY Objective: 02/27/17 14:57 Vital Signs Temperature 97.7 F 02/27/17 10:29 Pulse Rate 77 02/27/17 10:29 Respiratory Rate 16 02/27/17 10:29 Blood Pressure 129/84 02/27/17 10:29 O2 Sat by Pulse Oximetry (%) Assessment: 02/27/17 14:57 WITHDRAWAL SYMPTOM Plan: CONTINUE DETOX
[2017-02-27] MEDS ORDERED: chlordiazePOXIDE HCL 10 MG CAPSULE PO SCH (17:00)
[2017-02-27] MEDS ORDERED: chlordiazePOXIDE 5 MG CAPSULE ONE ×2 (18:06→21:11)
[2017-02-27] MEDS: chlordiazePOXIDE HCL 10 MG CAPSULE PO SCH ×2 (18:10→22:12)
[2017-02-27] MEDS: diphenhydrAMINE HCL 50 MG CAPSULE PO PRN (22:11)
[2017-02-27] MEDS: ZOLPIDEM TARTRATE 10 MG TABLET (PARK CARE ONLY) PO PRN (22:12)
[2017-02-27] MEDS: QUEtiapine FUMARATE 200 MG TABLET PO SCH (22:12)
[2017-02-27] MEDS: THIAMINE HCL 100 MG TABLET (FP) PO SCH (22:14)
[2017-02-28] MEDS: diphenhydrAMINE HCL 50 MG CAPSULE PO PRN (01:22)
[2017-02-28] MEDS ORDERED: chlordiazePOXIDE 5 MG CAPSULE ONE ×2 (04:31→08:55)
[2017-02-28] MEDS: chlordiazePOXIDE HCL 10 MG CAPSULE PO SCH ×2 (05:51→10:27)
[2017-02-28] MEDS ORDERED: METHADONE HCL 10 MG TABLET (FOR DETOX USE ONLY) PO SCH (10:00)
[2017-02-28] MEDS: PANTOPRAZOLE 40 MG TABLET (FP) PO SCH (10:26)
[2017-02-28] MEDS: PRENATAL VITAMINS W/ FOLIC ACID TABLET (FP) PO SCH (10:26)
[2017-02-28] MEDS: ASPIRIN 81 MG CHEWABLE TABLETS PO SCH (10:26)
[2017-02-28] MEDS: QUEtiapine FUMARATE 100 MG TABLET (FP) PO SCH (10:26)
[2017-02-28] MEDS: NICOTINE 21 MG/24 HOURS TOPICAL PATCH TD SCH (10:27)
--- NOTE | 2017-02-28 14:08 | PN ---
S Progress Note (SOAP) Subjective: ALERT,IRRITABLE,ANXIOUS,INTERRUPTED SLEEP, Objective: 02/28/17 14:03 Vital Signs Temperature 97.7 F 02/28/17 10:52 Pulse Rate 81 02/28/17 10:52 Respiratory Rate 18 02/28/17 10:52 Blood Pressure 142/86 02/28/17 10:52 O2 Sat by Pulse Oximetry (%) Assessment: 02/28/17 14:04 WITHDRAWAL SYMPTOM Plan: CONTINUE DETOX,DISCHARGE IN AM
[2017-02-28] MEDS: hydrOXYzine PAMOATE 25 MG CAPSULE (FP) PO PRN (14:38)
[2017-02-28] MEDS: THIAMINE HCL 100 MG TABLET (FP) PO SCH (22:25)
[2017-02-28] MEDS: ZOLPIDEM TARTRATE 10 MG TABLET (PARK CARE ONLY) PO PRN (22:25)
[2017-02-28] MEDS: QUEtiapine FUMARATE 200 MG TABLET PO SCH (22:25)
[2017-03-01] MEDS ORDERED: METHADONE HCL 5 MG TABLET (FOR DETOX USE ONLY) PO SCH (06:00)
[2017-03-01 06:32] VITALS: BP 124/76; PULSE 83; TEMP 97.9
--- NOTE | 2017-03-01 08:10 | PN ---
S Progress Note (SOAP) Subjective: ALERT,NO COMPLAINT Objective: 03/01/17 08:09 Vital Signs Temperature 97.9 F 03/01/17 06:00 Pulse Rate 83 03/01/17 06:00 Respiratory Rate 18 03/01/17 06:00 Blood Pressure 124/76 03/01/17 06:00 O2 Sat by Pulse Oximetry (%) Assessment: 03/01/17 08:09 DETOX COMPLETED,NO WITHDRAWAL SYMPTOM Plan: DISCHARGE TODAY,FOLLOW UP WITH AFTER CARE PROGRAM ARRANGEMENT
--- NOTE | 2017-03-01 08:15 | DS ---
[facility] Detox Discharge Summary Admission Date: 02/24/17 Discharge Date: 03/01/17 - History Present History: Alcohol Dependence, Opioid Dependence Additional Comments: FOLLOW UP WITH [facility] PROGRAM ARRANGEMENT AND PMD FOR MEDICAL PROBLEM Pertinent Past History: GERD OLD CVA HYPERTENSION BIPOLAR DISORDER NICOTINE DEPENDENCE - Physical Exam Results Vital Signs: Vital Signs Temperature 97.9 F 03/01/17 06:00 Pulse Rate 83 03/01/17 06:00 Respiratory Rate 18 03/01/17 06:00 Blood Pressure 124/76 03/01/17 06:00 O2 Sat by Pulse Oximetry (%) Pertinent Admission Physical Exam Findings: WITHDRAWAL SYMPTOM - Treatment Hospital Course: Detox Protocol Followed, Detoxed Safely, Responded well, Discharged Condition Good - Medication Discharge Medications: Ambulatory Orders Amoxicillin - [Amoxicillin 250mg Capsule -] 250 mg PO TID 02/24/17 Aspirin [ASA -] 81 mg PO DAILY 02/24/17 Quetiapine Fumarate [Seroquel] 100 mg PO BID #60 tablet 02/24/17 - Diagnosis (1) Alcohol dependence with uncomplicated withdrawal Status: Acute (2) Cocaine dependence, uncomplicated Status: Acute (3) Nicotine dependence Status: Acute Qualifiers: Nicotine product type: cigarettes Substance use status: uncomplicated Qualified Code(s): F17.210 - Nicotine dependence, cigarettes, uncomplicated (4) Opioid dependence with withdrawal Status: Acute (5) Toothache Status: Acute (6) Bipolar II disorder Status: Chronic (7) Hypercholesteremia Status: Chronic (8) Hypertension Status: Chronic Qualifiers: Hypertension type: essential hypertension Qualified Code(s): I10 - Essential (primary) hypertension (9) Hx of diabetes mellitus Status: Suspected - AMA Did Patient Leave Against Medical Advice: No
== END 2017-03-01 07:36 | disposition home or self-care (01) | DRG 773 ==
LOC: YASAS 09:19 → Y6N 11:24
PROVIDERS: ADMIT Internal Medicine Addiction Medicine; ATTEND Internal Medicine Addiction Medicine
PROC: HZ2ZZZZ Detoxification Services for Substance Abuse Treatment (ICD-10-PCS; principal; 2017-02-24)
DX: F11.23 Opioid dependence with withdrawal (principal); F10.230 Alcohol dependence with withdrawal, uncomplicated; F14.20 Cocaine dependence, uncomplicated; F17.210 Nicotine dependence, cigarettes, uncomplicated; F31.81 Bipolar II disorder; K21.9 Gastro-esophageal reflux disease without esophagitis; E78.00 Pure hypercholesterolemia, unspecified; I10 Essential (primary) hypertension; K08.89 Other specified disorders of teeth and supporting structures; G47.00 Insomnia, unspecified; R26.2 Difficulty in walking, not elsewhere classified; I69.951 Hemiplegia and hemiparesis following unspecified cerebrovascular disease affecting right dominant side
CPT/HCPCS: 36415; 80053; 81003; 81015; 85027; 86593; 93005; 93010

== ENCOUNTER 2019-01-07 20:59 | Inpatient (IN) | payer OTHER ==
[2019-01-07 21:59] VITALS: BMI 27.3
--- NOTE | 2019-01-07 22:24 | PDOC ---
Attending Attestation - Resident Resident Name: Tej Mccartney - ED Attending Attestation I have performed the following: I have examined & evaluated the patient, The case was reviewed & discussed with the resident, I agree w/resident's findings & plan, Exceptions are as noted
[2019-01-07] MEDS ORDERED: SODIUM CHLORIDE 1,000 ML IV SCH (23:30)
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
[2019-01-07 23:53] LABS: BASO % 0.8 % (0-2.0); EOS % 0.5 % (0-4.5); HEMATOCRIT 39.6 % (35.4-49); HEMOGLOBIN 13.6 GM/dL (11.7-16.9); LYMPH % 22.8 % (8-40); MCH 32.8 pg (25.7-33.7); MCHC 34.2 g/dl (32.0-35.9); MEAN CELL VOLUME 95.7 fl (80-96); MEAN PLT VOLUME 8.7 fl (7.5-11.1); MONO % 5.1 % (3.8-10.2); NEUT % 70.8 % (42.8-82.8); PLATELET COUNT 233 K/MM3 (134-434); RBC 4.14 M/mm3 (4.00-5.60); RDW 13.7 % (11.9-15.9); WHITE BLOOD COUNT 13.6 K/mm3 (4.0-10.0)
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
[2019-01-08 00:07] LABS: INR 1.08 (0.83-1.09); PROTHROMBIN TIME (PATIENT) 12.8 SEC (9.7-13.0)
[2019-01-08 01:15] LABS: ALBUMIN 3.8 g/dl (3.4-5.0); ALK PHOS 72 U/L (45-117); ANION GAP 3 MMOL/L (8-16); BILIRUBIN,TOTAL 0.4 mg/dL (0.2-1); BLOOD UREA NITROGEN 10 mg/dL (7-18); CALCIUM 8.4 mg/dL (8.5-10.1); CHLORIDE 107 mmol/L (98-107); CHOLESTEROL 120 mg/dL (50-200); CO2 30 mmol/L (21-32); GLUCOSE,RANDOM 69 mg/dL (74-106); HDL CHOLESTEROL 44 mg/dL (40-60); SGOT/AST 15 U/L (15-37); SGPT/ALT 17 U/L (13-61); SODIUM 139 mmol/L (136-145); TRIGLYCERIDES 56 mg/dL (0-150)
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
[2019-01-08] MEDS ORDERED: HEPARIN NA (PORCINE) 5,000 UNITS/ML 1ML VIAL ONE (06:58)
[2019-01-08] MEDS: HEPARIN NA (PORCINE) 5,000 UNITS/ML 1ML VIAL SQ SCH ×3 (07:30→21:18)
[2019-01-08] MEDS: SODIUM CHLORIDE 1,000 ML IV SCH ×2 (07:57→21:19)
[2019-01-08 08:12] LABS: URINE APPEARANCE CLEAR; URINE BILIRUBIN NEGATIVE (<2.0 mg/dL); URINE COLOR YELLOW; URINE GLUCOSE (UA) NEGATIVE (NEGATIVE); URINE KETONE NEGATIVE (NEGATIVE); URINE LEUK ESTERASE NEGATIVE (NEGATIVE); URINE NITRITE NEGATIVE (NEGATIVE); URINE PROTEIN NEGATIVE (NEGATIVE)
[2019-01-08 08:28] LABS: PHENCYCLIDINE,URINE NEGATIVE ng/ml (CUTOFF=25); URINE AMPHETAMINES NEGATIVE ng/ml (CUTOFF=500); URINE BARBITURATES NEGATIVE ng/ml (CUTOFF=200); URINE BENZODIAZEPINES NEGATIVE ng/ml (CUTOFF=200)
[2019-01-08 09:01] LABS: COCAINE, UR POSITIVE ng/ml (CUTOFF=300); METHADONE, UR POSITIVE ng/ml (CUTOFF=300); OPIATES, URI POSITIVE ng/ml (CUTOFF=300)
--- NOTE | 2019-01-08 09:33 | PN ---
Progress Note, Physician Chief Complaint: Mr Pina says his chest pain is much better but still there, attributes this to not yet receiving his methadone yet. Numbness, tingling, and facial droop has resolved. Denies sob and n/v. - Current Medication List Current Medications: Active Medications Alprazolam (Xanax -) 2 mg PO BID [facility] Heparin Sodium (Porcine) (Heparin -) 5,000 unit SQ TID [facility] Last Admin: 01/08/19 07:30 Dose: 5,000 unit Sodium Chloride (Normal Saline -) 1,000 mls @ 83 mls/hr IV ASDIR [facility] Last Admin: 01/08/19 07:57 Dose: 83 mls/hr Methadone HCl (Dolophine -) 50 mg PO DAILY [facility] Quetiapine Fumarate (Seroquel -) 100 mg PO BID [facility] - Objective Vital Signs: Vital Signs Temperature 36.7 C 01/08/19 08:01 Pulse Rate 59 L 01/08/19 08:01 Respiratory Rate 18 01/08/19 08:01 Blood Pressure 155/76 01/08/19 08:01 O2 Sat by Pulse Oximetry (%) 99 01/08/19 08:01 Constitutional: Yes: Well Nourished, No Distress, Calm Cardiovascular: Yes: Regular Rate and Rhythm. No: Gallop, Murmur, Rub Respiratory: Yes: Regular, CTA Bilaterally. No: Rales, Rhonchi, Wheezes Gastrointestinal: Yes: Normal Bowel Sounds, Soft. No: Distention, Tenderness Extremities: Yes: WNL Edema: No Labs: CBC, BMP 01/07/19 23:46 01/08/19 00:36 INR, PTT INR 1.08 (0.83-1.09) 01/07/19 23:46 Problem List - Problems (1) Chest pain Assessment/Plan: -patient presents with chest pain, currently improving -recent use of cocaine and marijuana -also under significant amount of stress -suspect this is not truly cardiac in nature, with other symptoms suspect patient has somatic symptom disorder -however this is a diagnosis of exclusion and with comorbidities will need to rule out cardiac source -consult cardiology -continue telemetry -cardiac enzymes negative -ECHO/stress test ordered -will place on daily aspirin Code(s): R07.9 - CHEST PAIN, UNSPECIFIED Qualifiers: Chest pain type: other chest pain Qualified Code(s): R07.89 - Other chest pain; R07.8 - Other chest pain (2) Cocaine dependence, uncomplicated Assessment/Plan: -patient says was doing well with addiction -however states now is living with a partner and she constantly argues with him causing stress -used cocaine as an escape -counselled patient concerning using cocaine -patient currently not interested in rehab, states will follow up with outpatient psychiatrist Code(s): F14.20 - COCAINE DEPENDENCE, UNCOMPLICATED (3) Opioid dependence with withdrawal Assessment/Plan: -continue methadone Code(s): F11.23 - OPIOID DEPENDENCE WITH WITHDRAWAL (4) Bipolar II disorder Assessment/Plan: -continue seroquel and xanax Code(s): F31.81 - BIPOLAR II DISORDER (5) DM (diabetes mellitus), type 2 with peripheral vascular complications Assessment/Plan: -patient not on any medications -check Hgb A1c Code(s): E11.51 - TYPE 2 DIABETES W DIABETIC PERIPHERAL ANGIOPATH W/O GANGRENE (6) GERD (gastroesophageal reflux disease) Assessment/Plan: -will start ranitidine Code(s): K21.9 - GASTRO-ESOPHAGEAL REFLUX DISEASE WITHOUT ESOPHAGITIS Qualifiers: Esophagitis presence: without esophagitis Qualified Code(s): K21.9 - Gastro -esophageal reflux disease without esophagitis (7) Hypercholesteremia Assessment/Plan: -check lipid panel Code(s): E78.0 - PURE HYPERCHOLESTEROLEMIA * DO NOT USE * (8) Hypertension Assessment/Plan: -monitor -will start lisinopril Code(s): I10 - ESSENTIAL (PRIMARY) HYPERTENSION Qualifiers: Hypertension type: essential hypertension Qualified Code(s): I10 - Essential (primary) hypertension (9) Paresthesia Assessment/Plan: -with facial droop but currently resolved -lower suspicion for acute CVA, however considering since recent cocaine use -suspect somatic symptom disorder vs atypical migraine -head CT performed, awaiting read -appreciate neurology assistance Code(s): R20.2 - PARESTHESIA OF SKIN
[2019-01-08] MEDS ORDERED: METHADONE HCL 10 MG TABLET PO SCH (10:00)
[2019-01-08] MEDS ORDERED: QUEtiapine FUMARATE 100 MG TABLET (FP) ONE (10:03)
[2019-01-08] MEDS ORDERED: ALPRAZolam 2 MG TABLET ONE ×2 (10:03→21:11)
[2019-01-08] MEDS ORDERED: LISINOPRIL 5 MG TABLET (FP) ONE (10:03)
[2019-01-08] MEDS ORDERED: ASPIRIN 81 MG CHEWABLE TABLETS ONE (10:03)
[2019-01-08] MEDS: ASPIRIN 81 MG CHEWABLE TABLETS PO SCH (10:06)
[2019-01-08] MEDS: QUEtiapine FUMARATE 100 MG TABLET (FP) PO SCH ×2 (10:06→21:18)
[2019-01-08] MEDS: LISINOPRIL 5 MG TABLET (FP) PO SCH (10:06)
[2019-01-08] MEDS: ALPRAZolam 2 MG TABLET PO SCH ×2 (10:06→21:19)
[2019-01-08] MEDS: RANITIDINE HCL 150 MG TABLET (FP) PO SCH ×2 (10:06→21:19)
[2019-01-08 10:10] LABS: HEMOGLOBIN 13.3 GM/dL (11.7-16.9); MCH 33.2 pg (25.7-33.7); MCHC 34.2 g/dl (32.0-35.9); MEAN PLT VOLUME 8.5 fl (7.5-11.1); PLATELET COUNT 220 K/MM3 (134-434); RBC 4.02 M/mm3 (4.00-5.60); RDW 13.9 % (11.9-15.9); WHITE BLOOD COUNT 8.3 K/mm3 (4.0-10.0)
[2019-01-08 10:30] LABS: INR 1.08 (0.83-1.09); PROTHROMBIN TIME (PATIENT) 12.8 SEC (9.7-13.0)
[2019-01-08 10:34] LABS: ANION GAP 4 MMOL/L (8-16); BLOOD UREA NITROGEN 8 mg/dL (7-18); CALCIUM 8.6 mg/dL (8.5-10.1); CHLORIDE 107 mmol/L (98-107); CO2 28 mmol/L (21-32); CREATININE 0.9 mg/dL (0.55-1.3); GLUCOSE,RANDOM 109 mg/dL (74-106); MAGNESIUM 2.5 mg/dL (1.8-2.4); PHOSPHOROUS 2.9 mg/dL (2.5-4.9); POTASSIUM 3.9 mmol/L (3.5-5.1); SODIUM 139 mmol/L (136-145)
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
[2019-01-08] MEDS ORDERED: METHADONE HCL 10 MG TABLET ONE (16:26)
[2019-01-08] MEDS ORDERED: METHADONE HCL 40 MG DISPERSABLE TABLET ONE (16:26)
[2019-01-08] MEDS ORDERED: METHADONE 40 MG, METHADONE 10 MG PO ONE (16:30)
[2019-01-08] MEDS ORDERED: RANITIDINE HCL 150 MG TABLET (FP) ONE (18:24)
--- NOTE | 2019-01-08 22:08 | EKG ---
Test Reason : Blood Pressure : / mmHG Vent. Rate : 075 BPM Atrial Rate : 075 BPM P-R Int : 146 ms QRS Dur : 072 ms QT Int : 412 ms P-R-T Axes : 079 026 038 degrees QTc Int : 460 ms NORMAL SINUS RHYTHM NORMAL ECG WHEN COMPARED WITH ECG OF 24-FEB-2017 11:36, NO SIGNIFICANT CHANGE WAS FOUND Confirmed by MANSI ZULETA MD ([id number]) on 01/08/2019 10:07:59 PM Referred By: Confirmed By:MANSI ZULETA MD
[2019-01-09 06:02] LABS: BASO % 0.9 % (0-2.0); EOS % 1.3 % (0-4.5); HEMATOCRIT 37.8 % (35.4-49); HEMOGLOBIN 12.6 GM/dL (11.7-16.9); LYMPH % 50.2 % (8-40); MCH 32.5 pg (25.7-33.7); MCHC 33.5 g/dl (32.0-35.9); MEAN PLT VOLUME 8.9 fl (7.5-11.1); MONO % 4.8 % (3.8-10.2); NEUT % 42.8 % (42.8-82.8); PLATELET COUNT 213 K/MM3 (134-434); RBC 3.89 M/mm3 (4.00-5.60); RDW 14.1 % (11.9-15.9); WHITE BLOOD COUNT 8.5 K/mm3 (4.0-10.0)
[2019-01-09] MEDS ORDERED: HEPARIN NA (PORCINE) 5,000 UNITS/ML 1ML VIAL ONE (06:25)
[2019-01-09] MEDS: HEPARIN NA (PORCINE) 5,000 UNITS/ML 1ML VIAL SQ SCH ×3 (06:29→21:13)
[2019-01-09 06:41] LABS: ANION GAP 3 MMOL/L (8-16); BLOOD UREA NITROGEN 12 mg/dL (7-18); CALCIUM 8.2 mg/dL (8.5-10.1); CHLORIDE 110 mmol/L (98-107); CO2 28 mmol/L (21-32); GLUCOSE,RANDOM 69 mg/dL (74-106); MAGNESIUM 2.5 mg/dL (1.8-2.4); POTASSIUM 4.4 mmol/L (3.5-5.1); SODIUM 140 mmol/L (136-145)
[2019-01-09] MEDS: SODIUM CHLORIDE 1,000 ML IV SCH (07:44)
[2019-01-09] MEDS ORDERED: ALPRAZolam 2 MG TABLET ONE ×2 (07:45→21:09)
[2019-01-09] MEDS: ALPRAZolam 2 MG TABLET PO SCH ×2 (09:06→21:13)
[2019-01-09] MEDS ORDERED: REGADENOSON 0.4 MG/5 ML PRE-FILLED SYRINGE IVPUSH ONE ×2 (09:48→10:00)
--- NOTE | 2019-01-09 11:44 | ECHO ---
Name: BEE ZUNIGA Exam:Adult Echocardiogram Study Date: 01/09/2019 07:56 AM Age: 53 yrs Reason For Study: Chest pain Height: 68 in Weight: 180 lb BSA: 2.0 m2 MMode/2D Measurements & Calculations IVSd: 0.96 cm Ao root diam: 2.9 cm LVIDd: 5.0 cm LA dimension: 3.3 cm LVIDs: 3.0 cm LVPWd: 0.99 cm EDV(Teich): 118.7 ml LAV (MOD-bp): 72.9 ml ESV(Teich): 34.4 ml Doppler Measurements & Calculations MV E max gabe: 99.0 cm/sec MR max gabe: 256.5 cm/sec MV A max gabe: 68.9 cm/sec MR max P.3 mmHg MV E/A: 1.4 MV dec time: 0.12 sec TR max gabe: 266.7 cm/sec Med Peak E' Gabe: 9.4 cm/sec TR max P.5 mmHg Med E/e': 10.6 Lat Peak E' Gabe: 10.4 cm/sec Lat E/e': 9.5 PI Vmax: 88.2 cm/sec Procedure A complete two-dimensional transthoracic echocardiogram was performed (2D, M-mode, Doppler and color flow Doppler). Left Ventricle The left ventricle is normal in size. Left ventricular systolic function is normal. Ejection Fraction = 60- 65%. No regional wall motion abnormalities noted. Right Ventricle The right ventricle is normal size. The right ventricular systolic function is normal. Atria LA volume index is estimated 37 ml/m2 suggests mildly dilated LA cavity. Right atrial size is normal. Mitral Valve The mitral valve is normal in structure and function. There is mild mitral regurgitation. Tricuspid Valve The tricuspid valve is normal in structure and function. There is moderate tricuspid regurgitation. P ulmonary artery systolic pressure is at least 45 mmHg assuming RA pressure of 15 mmHg (dilated IVC with <50% c ollapse). Aortic Valve The aortic valve is normal in structure and function. No aortic regurgitation is present. Pulmonic Valve The pulmonic valve is not well visualized. Great Vessels The aortic root is normal size. Pericardium/Pleura There is no pericardial effusion. Interpretation Summary The left ventricle is normal in size. Left ventricular systolic function is normal. No regional wall motion abnormalities noted. Ejection Fraction = 60-65%. The right ventricular systolic function is normal. LA volume index is estimated 37 ml/m2 suggests mildly dilated LA cavity Right atrial size is normal. There is mild mitral regurgitation. There is moderate tricuspid regurgitation. Pulmonary artery systolic pressure is at least 45 mmHg assuming RA pressure of 15 mmHg (dilated IVC w ith <50% collapse) No aortic regurgitation is present. There is no pericardial effusion. Previous study is not available for comparison Sanchez Sandoval MD 01/09/2019 11:43 AM
[2019-01-09] MEDS: ASPIRIN 81 MG CHEWABLE TABLETS PO SCH (13:05)
[2019-01-09] MEDS: QUEtiapine FUMARATE 100 MG TABLET (FP) PO SCH ×2 (13:05→21:13)
[2019-01-09] MEDS: LISINOPRIL 5 MG TABLET (FP) PO SCH (13:05)
[2019-01-09] MEDS: RANITIDINE HCL 150 MG TABLET (FP) PO SCH ×2 (13:06→21:13)
[2019-01-09] MEDS: METHADONE 40 MG, METHADONE 10 MG PO SCH (13:06)
[2019-01-09] MEDS ORDERED: METHADONE HCL 10 MG TABLET ONE (13:08)
[2019-01-09] MEDS ORDERED: METHADONE HCL 40 MG DISPERSABLE TABLET ONE (13:09)
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
--- NOTE | 2019-01-09 15:54 | PN ---
Progress Note, Physician Chief Complaint: Mr Pina says he is feeling nervous and still with slight chest pain but otherwise without complaint. Requesting psychiatry visit. Denies sob or n/v. - Current Medication List Current Medications: Active Medications Alprazolam (Xanax -) 2 mg PO BID [facility] Last Admin: 01/09/19 09:06 Dose: 2 mg Aspirin (Asa -) 81 mg PO DAILY [facility] Last Admin: 01/09/19 13:05 Dose: 81 mg Heparin Sodium (Porcine) (Heparin -) 5,000 unit SQ TID [facility] Last Admin: 01/09/19 13:06 Dose: 5,000 unit Sodium Chloride (Normal Saline -) 1,000 mls @ 83 mls/hr IV ASDIR [facility] Last Admin: 01/09/19 07:44 Dose: 83 mls/hr Lisinopril (Prinivil) 5 mg PO DAILY [facility] Last Admin: 01/09/19 13:05 Dose: 5 mg Methadone HCl 40 mg/ Methadone (HCl 10 mg) 50 mg PO DAILY@0600 [facility] Last Admin: 01/09/19 13:06 Dose: 50 mg Quetiapine Fumarate (Seroquel -) 100 mg PO BID [facility] Last Admin: 01/09/19 13:05 Dose: 100 mg Ranitidine HCl (Zantac -) 150 mg PO BID [facility] Last Admin: 01/09/19 13:06 Dose: 150 mg - Objective Vital Signs: Vital Signs Temperature 36.8 C 01/09/19 13:34 Pulse Rate 55 L 01/09/19 13:34 Respiratory Rate 16 01/09/19 13:34 Blood Pressure 154/83 01/09/19 13:34 O2 Sat by Pulse Oximetry (%) 98 01/08/19 21:20 Constitutional: Yes: Well Nourished, No Distress, Calm Cardiovascular: Yes: Regular Rate and Rhythm. No: Gallop, Murmur, Rub Respiratory: Yes: Regular, CTA Bilaterally. No: Rales, Rhonchi, Wheezes Gastrointestinal: Yes: Normal Bowel Sounds, Soft. No: Distention, Tenderness Extremities: Yes: WNL Edema: No Labs: CBC, BMP 01/09/19 05:40 01/09/19 05:40 INR, PTT INR 1.08 (0.83-1.09) 01/08/19 10:00 Problem List - Problems (1) Chest pain Code(s): R07.9 - CHEST PAIN, UNSPECIFIED Qualifiers: Chest pain type: other chest pain Qualified Code(s): R07.89 - Other chest pain; R07.8 - Other chest pain (2) Cocaine dependence, uncomplicated Code(s): F14.20 - COCAINE DEPENDENCE, UNCOMPLICATED (3) Opioid dependence with withdrawal Code(s): F11.23 - OPIOID DEPENDENCE WITH WITHDRAWAL (4) Bipolar II disorder Code(s): F31.81 - BIPOLAR II DISORDER (5) DM (diabetes mellitus), type 2 with peripheral vascular complications Code(s): E11.51 - TYPE 2 DIABETES W DIABETIC PERIPHERAL ANGIOPATH W/O GANGRENE (6) GERD (gastroesophageal reflux disease) Code(s): K21.9 - GASTRO-ESOPHAGEAL REFLUX DISEASE WITHOUT ESOPHAGITIS Qualifiers: Esophagitis presence: without esophagitis Qualified Code(s): K21.9 - Gastro -esophageal reflux disease without esophagitis (7) Hypercholesteremia Code(s): E78.0 - PURE HYPERCHOLESTEROLEMIA * DO NOT USE * (8) Hypertension Code(s): I10 - ESSENTIAL (PRIMARY) HYPERTENSION Qualifiers: Hypertension type: essential hypertension Qualified Code(s): I10 - Essential (primary) hypertension (9) Paresthesia Code(s): R20.2 - PARESTHESIA OF SKIN Assessment/Plan (1) Chest pain Assessment/Plan: -work up negative -appreciate cardiology assistance -no further testing Code(s): R07.9 - CHEST PAIN, UNSPECIFIED Qualifiers: Chest pain type: other chest pain Qualified Code(s): R07.89 - Other chest pain; R07.8 - Other chest pain (2) Cocaine dependence, uncomplicated Assessment/Plan: -patient says was doing well with addiction -however states now is living with a partner and she constantly argues with him causing stress -used cocaine as an escape -counselled patient concerning using cocaine -patient currently not interested in rehab, states will follow up with outpatient psychiatrist Code(s): F14.20 - COCAINE DEPENDENCE, UNCOMPLICATED (3) Opioid dependence with withdrawal Assessment/Plan: -continue methadone Code(s): F11.23 - OPIOID DEPENDENCE WITH WITHDRAWAL (4) Bipolar II disorder Assessment/Plan: -continue seroquel and xanax Code(s): F31.81 - BIPOLAR II DISORDER (5) DM (diabetes mellitus), type 2 with peripheral vascular complications Assessment/Plan: -patient not on any medications -Hgb A1c normal Code(s): E11.51 - TYPE 2 DIABETES W DIABETIC PERIPHERAL ANGIOPATH W/O GANGRENE (6) GERD (gastroesophageal reflux disease) Assessment/Plan: -continue ranitidine Code(s): K21.9 - GASTRO-ESOPHAGEAL REFLUX DISEASE WITHOUT ESOPHAGITIS Qualifiers: Esophagitis presence: without esophagitis Qualified Code(s): K21.9 - Gastro -esophageal reflux disease without esophagitis (7) Hypercholesteremia Assessment/Plan: -lipid panel checked Code(s): E78.0 - PURE HYPERCHOLESTEROLEMIA * DO NOT USE * (8) Hypertension Assessment/Plan: -continue lisinopril Code(s): I10 - ESSENTIAL (PRIMARY) HYPERTENSION Qualifiers: Hypertension type: essential hypertension Qualified Code(s): I10 - Essential (primary) hypertension (9) Paresthesia Assessment/Plan: -appreciate neurology assistance -MRI ordered Code(s): R20.2 - PARESTHESIA OF SKIN
[2019-01-09] MEDS ORDERED: RANITIDINE HCL 150 MG TABLET (FP) ONE (21:09)
[2019-01-09] MEDS ORDERED: QUEtiapine FUMARATE 100 MG TABLET (FP) ONE (21:10)
[2019-01-10] MEDS ORDERED: MELATONIN 5 MG TABLETS PO ONE (03:30)
[2019-01-10] MEDS: SODIUM CHLORIDE 1,000 ML IV SCH ×2 (04:02→09:30)
[2019-01-10] MEDS ORDERED: METHADONE HCL 10 MG TABLET ONE (05:47)
[2019-01-10] MEDS ORDERED: METHADONE HCL 40 MG DISPERSABLE TABLET ONE (05:47)
[2019-01-10] MEDS: HEPARIN NA (PORCINE) 5,000 UNITS/ML 1ML VIAL SQ SCH ×3 (05:55→22:47)
[2019-01-10] MEDS: METHADONE 40 MG, METHADONE 10 MG PO SCH (05:55)
[2019-01-10 07:14] LABS: BASO % 0.8 % (0-2.0); HEMATOCRIT 35.9 % (35.4-49); HEMOGLOBIN 12.1 GM/dL (11.7-16.9); LYMPH % 44.3 % (8-40); MCH 32.6 pg (25.7-33.7); MCHC 33.8 g/dl (32.0-35.9); MEAN CELL VOLUME 96.4 fl (80-96); MEAN PLT VOLUME 9.1 fl (7.5-11.1); MONO % 5.9 % (3.8-10.2); PLATELET COUNT 214 K/MM3 (134-434); RBC 3.73 M/mm3 (4.00-5.60); RDW 13.7 % (11.9-15.9); WHITE BLOOD COUNT 7.9 K/mm3 (4.0-10.0)
[2019-01-10 07:53] LABS: ANION GAP 3 MMOL/L (8-16); BLOOD UREA NITROGEN 17 mg/dL (7-18); CALCIUM 8.2 mg/dL (8.5-10.1); CHLORIDE 106 mmol/L (98-107); CO2 31 mmol/L (21-32); GLUCOSE,RANDOM 89 mg/dL (74-106); MAGNESIUM 2.5 mg/dL (1.8-2.4); PHOSPHOROUS 3.8 mg/dL (2.5-4.9); POTASSIUM 4.2 mmol/L (3.5-5.1); SODIUM 140 mmol/L (136-145)
[2019-01-10] MEDS: ASPIRIN 81 MG CHEWABLE TABLETS PO SCH (09:20)
[2019-01-10] MEDS: RANITIDINE HCL 150 MG TABLET (FP) PO SCH ×2 (09:20→22:47)
[2019-01-10] MEDS: ALPRAZolam 2 MG TABLET PO SCH ×2 (09:20→22:47)
[2019-01-10] MEDS ORDERED: ALPRAZolam 2 MG TABLET ONE (09:20)
[2019-01-10] MEDS: QUEtiapine FUMARATE 100 MG TABLET (FP) PO SCH ×2 (09:20→22:47)
[2019-01-10] MEDS: LISINOPRIL 5 MG TABLET (FP) PO SCH (09:20)
--- NOTE | 2019-01-10 15:27 | PN ---
Progress Note, Physician Chief Complaint: Mr Pina mainly complains of nervousness. Denies cp, sob, n/v. - Current Medication List Current Medications: Active Medications Alprazolam (Xanax -) 2 mg PO BID [facility] Last Admin: 01/10/19 09:20 Dose: 2 mg Aspirin (Asa -) 81 mg PO DAILY [facility] Last Admin: 01/10/19 09:20 Dose: 81 mg Heparin Sodium (Porcine) (Heparin -) 5,000 unit SQ TID [facility] Last Admin: 01/10/19 13:37 Dose: 5,000 unit Sodium Chloride (Normal Saline -) 1,000 mls @ 83 mls/hr IV ASDIR [facility] Last Admin: 01/10/19 09:30 Dose: 83 mls/hr Lisinopril (Prinivil) 5 mg PO DAILY [facility] Last Admin: 01/10/19 09:20 Dose: 5 mg Methadone HCl 40 mg/ Methadone (HCl 10 mg) 50 mg PO DAILY@0600 [facility] Last Admin: 01/10/19 05:55 Dose: 50 mg Quetiapine Fumarate (Seroquel -) 100 mg PO BID [facility] Last Admin: 01/10/19 09:20 Dose: 100 mg Ranitidine HCl (Zantac -) 150 mg PO BID [facility] Last Admin: 01/10/19 09:20 Dose: 150 mg - Objective Vital Signs: Vital Signs Temperature 36.6 C 01/10/19 11:00 Pulse Rate 68 01/10/19 11:00 Respiratory Rate 18 01/10/19 11:00 Blood Pressure 131/78 01/10/19 11:00 O2 Sat by Pulse Oximetry (%) 97 01/10/19 09:00 Constitutional: Yes: Well Nourished, No Distress, Calm Cardiovascular: Yes: Regular Rate and Rhythm. No: Gallop, Murmur, Rub Respiratory: Yes: Regular, CTA Bilaterally. No: Rales, Rhonchi, Wheezes Gastrointestinal: Yes: Normal Bowel Sounds, Soft. No: Distention, Tenderness Extremities: Yes: WNL Edema: No Labs: CBC, BMP 01/10/19 06:32 01/10/19 06:32 INR, PTT INR 1.08 (0.83-1.09) 01/08/19 10:00 Problem List - Problems (1) Chest pain Code(s): R07.9 - CHEST PAIN, UNSPECIFIED Qualifiers: Chest pain type: other chest pain Qualified Code(s): R07.89 - Other chest pain; R07.8 - Other chest pain (2) Cocaine dependence, uncomplicated Code(s): F14.20 - COCAINE DEPENDENCE, UNCOMPLICATED (3) Opioid dependence with withdrawal Code(s): F11.23 - OPIOID DEPENDENCE WITH WITHDRAWAL (4) Bipolar II disorder Code(s): F31.81 - BIPOLAR II DISORDER (5) DM (diabetes mellitus), type 2 with peripheral vascular complications Code(s): E11.51 - TYPE 2 DIABETES W DIABETIC PERIPHERAL ANGIOPATH W/O GANGRENE (6) GERD (gastroesophageal reflux disease) Code(s): K21.9 - GASTRO-ESOPHAGEAL REFLUX DISEASE WITHOUT ESOPHAGITIS Qualifiers: Esophagitis presence: without esophagitis Qualified Code(s): K21.9 - Gastro -esophageal reflux disease without esophagitis (7) Hypercholesteremia Code(s): E78.0 - PURE HYPERCHOLESTEROLEMIA * DO NOT USE * (8) Hypertension Code(s): I10 - ESSENTIAL (PRIMARY) HYPERTENSION Qualifiers: Hypertension type: essential hypertension Qualified Code(s): I10 - Essential (primary) hypertension (9) Paresthesia Code(s): R20.2 - PARESTHESIA OF SKIN Assessment/Plan (1) Chest pain Assessment/Plan: -work up negative -appreciate cardiology assistance -no further testing Code(s): R07.9 - CHEST PAIN, UNSPECIFIED Qualifiers: Chest pain type: other chest pain Qualified Code(s): R07.89 - Other chest pain; R07.8 - Other chest pain (2) Cocaine dependence, uncomplicated Assessment/Plan: -again spoke with patient about rehab, declines Code(s): F14.20 - COCAINE DEPENDENCE, UNCOMPLICATED (3) Opioid dependence with withdrawal Assessment/Plan: -continue methadone Code(s): F11.23 - OPIOID DEPENDENCE WITH WITHDRAWAL (4) Bipolar II disorder Assessment/Plan: -continue seroquel and xanax -psych consult placed per patient request Code(s): F31.81 - BIPOLAR II DISORDER (5) DM (diabetes mellitus), type 2 with peripheral vascular complications Assessment/Plan: -patient not on any medications -Hgb A1c normal Code(s): E11.51 - TYPE 2 DIABETES W DIABETIC PERIPHERAL ANGIOPATH W/O GANGRENE (6) GERD (gastroesophageal reflux disease) Assessment/Plan: -continue ranitidine Code(s): K21.9 - GASTRO-ESOPHAGEAL REFLUX DISEASE WITHOUT ESOPHAGITIS Qualifiers: Esophagitis presence: without esophagitis Qualified Code(s): K21.9 - Gastro -esophageal reflux disease without esophagitis (7) Hypercholesteremia Assessment/Plan: -lipid panel checked Code(s): E78.0 - PURE HYPERCHOLESTEROLEMIA * DO NOT USE * (8) Hypertension Assessment/Plan: -continue lisinopril Code(s): I10 - ESSENTIAL (PRIMARY) HYPERTENSION Qualifiers: Hypertension type: essential hypertension Qualified Code(s): I10 - Essential (primary) hypertension (9) Paresthesia Assessment/Plan: -appreciate neurology assistance -MRI ordered, awaiting results Code(s): R20.2 - PARESTHESIA OF SKIN Dispo -if MRI negative, plan for discharge home
[2019-01-10] MEDS ORDERED: QUEtiapine FUMARATE 50 MG TABLET ONE (22:46)
[2019-01-11] MEDS ORDERED: METHADONE HCL 40 MG DISPERSABLE TABLET ONE (05:23)
[2019-01-11] MEDS ORDERED: METHADONE HCL 10 MG TABLET ONE (05:24)
[2019-01-11] MEDS: HEPARIN NA (PORCINE) 5,000 UNITS/ML 1ML VIAL SQ SCH ×3 (05:43→21:54)
[2019-01-11] MEDS: METHADONE 40 MG, METHADONE 10 MG PO SCH (05:44)
[2019-01-11] MEDS: SODIUM CHLORIDE 1,000 ML IV SCH (08:04)
--- NOTE | 2019-01-11 08:09 | DS ---
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 non focal Labs: CBC, BMP 01/10/19 06:32 01/10/19 06:32 Imaging: CT Head: No acute changes Carotid Doppler; No hemodynmically significant obstruction ECHO: normal Ef no wall motion abnormality NST: Negative for inducible Ischemia MRI: Brain: No acute changes Discharge Summary Reason For Visit: TRANSIENT ISCHEMIC ATTACK/CHEST PAIN Current Active Problems Paresthesia (Acute) Hospital Course: 53 yrs old man with H/O PSA active Cocaine, marijuana and opites on Methadone program, bipolar disorders, present with chest pain and Left sided parasthesia , also PMH of TIA/CVA, no significant neurological findings -ve NST, normal ECHO, Carotid Doppler and NST, MRI shows no acute chnages, evaluated and cleared by cardiology and Neurology consult. Patient ambulating independently refused PT evaluation , Patient will F/U with his Psychiatrist and resident Clinic for BP management, refused referal to addiction clinic. Condition: Fair - Instructions Diet, Activity, Other Instructions: Low Sat Low Cholesterol. Referrals: Mauricio Marte MD [Staff Physician] - 2 Weeks Disposition: HOME - Home Medications Comprehensive Discharge Medication List: Ambulatory Orders Quetiapine Fumarate [Seroquel] 100 mg PO BID #60 tablet 02/24/17 Alprazolam [Xanax] 2 mg PO BID 01/07/19 Methadone [Dolophine -] 50 mg PO DAILY 01/07/19 Zolpidem Tartrate [Ambien] 10 mg PO HS 01/07/19 Aspirin [ASA -] 81 mg PO DAILY #30 tab.chew 01/11/19 Lisinopril [Prinivil] 5 mg PO DAILY #30 tablet 01/11/19 Ranitidine [Zantac -] 150 mg PO BID #30 tablet 01/11/19
[2019-01-11] MEDS ORDERED: QUEtiapine FUMARATE 50 MG TABLET ONE ×2 (09:02→21:17)
[2019-01-11] MEDS: ASPIRIN 81 MG CHEWABLE TABLETS PO SCH (09:05)
[2019-01-11] MEDS: LISINOPRIL 5 MG TABLET (FP) PO SCH (09:05)
[2019-01-11] MEDS: RANITIDINE HCL 150 MG TABLET (FP) PO SCH ×2 (09:05→21:54)
[2019-01-11] MEDS: QUEtiapine FUMARATE 100 MG TABLET (FP) PO SCH ×2 (09:05→21:54)
[2019-01-11] MEDS: ALPRAZolam 2 MG TABLET PO SCH ×3 (09:05→21:55)
--- NOTE | 2019-01-11 13:34 | PN ---
Progress Note, Physician Chief Complaint: letargic after methadone - Current Medication List Current Medications: Active Medications Alprazolam (Xanax -) 2 mg PO BID [facility] Last Admin: 01/11/19 12:51 Dose: 2 mg Aspirin (Asa -) 81 mg PO DAILY [facility] Last Admin: 01/11/19 09:05 Dose: 81 mg Heparin Sodium (Porcine) (Heparin -) 5,000 unit SQ TID [facility] Last Admin: 01/11/19 05:43 Dose: 5,000 unit Sodium Chloride (Normal Saline -) 1,000 mls @ 83 mls/hr IV ASDIR [facility] Last Admin: 01/11/19 08:04 Dose: 83 mls/hr Lisinopril (Prinivil) 5 mg PO DAILY [facility] Last Admin: 01/11/19 09:05 Dose: 5 mg Methadone HCl 40 mg/ Methadone (HCl 10 mg) 50 mg PO DAILY@0600 [facility] Last Admin: 01/11/19 05:44 Dose: 50 mg Quetiapine Fumarate (Seroquel -) 100 mg PO BID [facility] Last Admin: 01/11/19 09:05 Dose: 100 mg Ranitidine HCl (Zantac -) 150 mg PO BID [facility] Last Admin: 01/11/19 09:05 Dose: 150 mg - Objective Vital Signs: Vital Signs Temperature 97.5 F L 01/11/19 10:00 Pulse Rate 62 01/11/19 10:00 Respiratory Rate 22 H 01/11/19 10:00 Blood Pressure 137/65 01/11/19 10:00 O2 Sat by Pulse Oximetry (%) 99 01/11/19 09:00 Middle aged man sleepy not in distress chest pain free HEENT: Mm moist, no anemia, PERRLA EOMI NECK:No JVd No Bruit CHEST:CTA B/L CVS:S1S2 R no m/g/r ABD:No distention, non tender Bs EXT:No edema feet, no calf 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 non focal Labs: CBC, BMP 01/10/19 06:32 01/10/19 06:32 INR, PTT INR 1.08 (0.83-1.09) 01/08/19 10:00 - ....Imaging Cat Scan: Report Reviewed (Normal) Ultrasound: Report Reviewed (Carotids; Normal) EKG: Report Reviewed (Normal) Problem List - Problems (1) Paresthesia Assessment/Plan: Non focal neuro exam CT head and carotid -ve, awaiting MRI (yesterday refused due to claustrophobia), cont ASA statin F/U MRI and PT evaluation, already evaluated by Cardiology and Neurology consult. Code(s): R20.2 - PARESTHESIA OF SKIN (2) Polysubstance (excluding opioids) dependence Assessment/Plan: U tox + Cocaine Marijuana and opiate on Methadone observe withdrawal Code(s): F19.20 - OTHER PSYCHOACTIVE SUBSTANCE DEPENDENCE, UNCOMPLICATED (3) Chest pain Assessment/Plan: Atypical evaluted by cardiology consult NST -ve Code(s): R07.9 - CHEST PAIN, UNSPECIFIED Qualifiers: Chest pain type: other chest pain Qualified Code(s): R07.89 - Other chest pain; R07.8 - Other chest pain (4) Bipolar II disorder Assessment/Plan: Cont Home meds Code(s): F31.81 - BIPOLAR II DISORDER
--- NOTE | 2019-01-11 14:32 | CON.PSY ---
Psychiatry Consult Chief Complaint: 53year old male admitted with chest apin. seen for Psych eval, on Seroquel, xanax and Methadone. patient attends a mental health clinic in [facility]. History of Poly Substance abuse. Symptoms: reports: Anxiety - Previous Psychiatric Treatment Outpatient: Less than 6 mos ago Inpatient: None - Previous Substance Abuse Treatment Outpatient: Less than 6 mos ago - Reason for Previous Treatment Reason for Previous Treatment: Anxiety or Panic Disorder, Conduct Disorder, Heroin or Other Narcotics - Current Medications Current Medications: Active Medications Alprazolam (Xanax -) 2 mg PO BID [facility] Last Admin: 01/11/19 12:51 Dose: 2 mg Aspirin (Asa -) 81 mg PO DAILY [facility] Last Admin: 01/11/19 09:05 Dose: 81 mg Heparin Sodium (Porcine) (Heparin -) 5,000 unit SQ TID [facility] Last Admin: 01/11/19 05:43 Dose: 5,000 unit Sodium Chloride (Normal Saline -) 1,000 mls @ 83 mls/hr IV ASDIR [facility] Last Admin: 01/11/19 08:04 Dose: 83 mls/hr Lisinopril (Prinivil) 5 mg PO DAILY [facility] Last Admin: 01/11/19 09:05 Dose: 5 mg Methadone HCl 40 mg/ Methadone (HCl 10 mg) 50 mg PO DAILY@0600 [facility] Last Admin: 01/11/19 05:44 Dose: 50 mg Quetiapine Fumarate (Seroquel -) 100 mg PO BID [facility] Last Admin: 01/11/19 09:05 Dose: 100 mg Ranitidine HCl (Zantac -) 150 mg PO BID [facility] Last Admin: 01/11/19 09:05 Dose: 150 mg - Allergies Allergies: Allergies Allergy/AdvReac Type Severity Reaction Status Date / Time shellfish derived Allergy Severe Hives Verified 02/24/17 10:15 No Known Drug Allergies Allergy Verified 02/24/17 10:15 coconut Allergy Severe Hives Uncoded 02/24/17 10:15 seafood Allergy Severe Hives Uncoded 02/24/17 10:15 - Current Living Status Usual Living Arrangement: Alone - Current Mental Status Evaluation Appearance: Well Groomed Attitude: Cooperative - Affect Affect: Constrictive - Mood Mood: Euthymic - Speech/Language Expressive: Coherent - Psychomotor Activity Psychomotor Activity: Normal - Thought Process Thought Process: Intact - Thought Content Hallucinations: Absent Delusions: Absent - Self Perception Self Perception: No Impairment - Cognition Attention: Alert Orientation: Time Memory, Immediate Recall: Intact Memory, Short Term: 3/3 Memory, Remote with Promptin/3 - Concentration Serial Sevens Intact: No Simple Calculations Intact: Yes - Abstraction Proverb Interpretation: Intact Judgement: Minimally Impaired - Insight Insight: Intact - Impulse Control Impulse Control: Good Control - Suicidal Ideation Suicidal Ideation: No - Homicidal Ideation Homicidal Ideation: No Assessment/Plan 1) [facility] no change needed. 2) follow up @ [facility].
[2019-01-12] MEDS ORDERED: METHADONE HCL 10 MG TABLET ONE (06:28)
[2019-01-12] MEDS ORDERED: METHADONE HCL 40 MG DISPERSABLE TABLET ONE (06:28)
[2019-01-12 06:51] VITALS: PULSE 58
[2019-01-12] MEDS: HEPARIN NA (PORCINE) 5,000 UNITS/ML 1ML VIAL SQ SCH (06:58)
[2019-01-12] MEDS: METHADONE 40 MG, METHADONE 10 MG PO SCH (06:58)
[2019-01-12 08:05] VITALS: BP 155/84; TEMP 98
== END 2019-01-12 08:23 | disposition home or self-care (01) | DRG 47 ==
LOC: JER 20:59 → JERBED 01-08 01:45 → OBSVTOIN 01-08 05:46 → J4W 01-10 13:56
PROVIDERS: ADMIT Internal Medicine; ATTEND Internal Medicine
DX: G45.9 Transient cerebral ischemic attack, unspecified (principal); F41.9 Anxiety disorder, unspecified; R20.2 Paresthesia of skin; F19.239 Other psychoactive substance dependence with withdrawal, unspecified; F31.81 Bipolar II disorder; K21.9 Gastro-esophageal reflux disease without esophagitis; E78.5 Hyperlipidemia, unspecified; F14.20 Cocaine dependence, uncomplicated; J33.8 Other polyp of sinus; F17.210 Nicotine dependence, cigarettes, uncomplicated; I10 Essential (primary) hypertension; F11.20 Opioid dependence, uncomplicated; I69.351 Hemiplegia and hemiparesis following cerebral infarction affecting right dominant side; R07.89 Other chest pain
CPT/HCPCS: 36415; 70450-TC; 70551-TC; 71045-TC-FY; 78452-TC; 80048; 80053; 80307; 81003; 82465; 82550; 82607; 82962; 83036; 83718; 83721; 83735; 84100; 84478; 84484; 85025; 85027; 85610; 86618; 86850; 86900; 86901; 93005; 93010; 93017; 93306-TC; 93880-TC; 97116-GP; 97161-GP; 99285-25; A9502; G0378; J1245; J1644; J7030

== ENCOUNTER 2019-01-23 10:07 | Inpatient (IN) | payer OTHER ==
[2019-01-23 10:35] VITALS: BMI 27.8
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
[2019-01-23] MEDS ORDERED: MAGNESIUM HYDROX 2400MG/30ML ORAL SUSPENSION 30 ML CUP PO PRN (14:32)
[2019-01-23] MEDS ORDERED: guaiFENesin 200 MG/10 ML 10 ML UNIT-DOSE CUPS PO PRN (14:32)
[2019-01-23] MEDS ORDERED: MAGNESIUM CITRATE 300 ML BOTTLE PO PRN (14:32)
[2019-01-23] MEDS ORDERED: IBUPROFEN 400 MG TABLET (FP) PO PRN (14:32)
[2019-01-23] MEDS ORDERED: ACETAMINOPHEN 325 MG TABLET (FP) PO PRN ×2 (14:32)
[2019-01-23] MEDS ORDERED: DICYCLOMINE HCL 10 MG CAPSULE PO PRN (14:32)
[2019-01-23] MEDS ORDERED: MENTHOL/PHENOL 1 EACH UD MM PRN (14:32)
[2019-01-23] MEDS ORDERED: ONDANSETRON *ODT* 4 MG TABLET SL PRN (14:32)
[2019-01-23] MEDS ORDERED: NICOTINE POLACRILEX 2 MG GUM BUC PRN (14:32)
[2019-01-23] MEDS: chlordiazePOXIDE HCL 25 MG CAPSULE PO SCH ×2 (17:26→22:33)
[2019-01-23 22:22] LABS: EOS % 1.5 % (0-4.5); HEMATOCRIT 39.1 % (35.4-49); HEMOGLOBIN 13.2 GM/dL (11.7-16.9); LYMPH % 38.6 % (8-40); MCHC 33.9 g/dl (32.0-35.9); MEAN CELL VOLUME 97.3 fl (80-96); MONO % 6.2 % (3.8-10.2); NEUT % 52.7 % (42.8-82.8); PLATELET COUNT 284 K/MM3 (134-434); RBC 4.02 M/mm3 (4.00-5.60); RDW 13.4 % (11.9-15.9); WHITE BLOOD COUNT 10.3 K/mm3 (4.0-10.0)
[2019-01-23] MEDS: RANITIDINE HCL 150 MG TABLET (FP) PO SCH (22:33)
[2019-01-23] MEDS: MELATONIN 5 MG TABLETS PO PRN (22:33)
[2019-01-23] MEDS: THIAMINE HCL 100 MG TABLET (FP) PO SCH (22:33)
[2019-01-23 22:35] LABS: ALBUMIN 3.8 g/dl (3.4-5.0); ALK PHOS 75 U/L (45-117); ANION GAP 7 MMOL/L (8-16); BILIRUBIN,TOTAL 0.7 mg/dL (0.2-1); BLOOD UREA NITROGEN 12 mg/dL (7-18); CALCIUM 8.3 mg/dL (8.5-10.1); CHLORIDE 115 mmol/L (98-107); CO2 28 mmol/L (21-32); GLUCOSE,RANDOM 97 mg/dL (74-106); POTASSIUM 4.4 mmol/L (3.5-5.1); SGOT/AST 15 U/L (15-37); SGPT/ALT 22 U/L (13-61); SODIUM 149 mmol/L (136-145); TOT PROT 7.2 g/dl (6.4-8.2)
[2019-01-24] MEDS: chlordiazePOXIDE HCL 25 MG CAPSULE PO SCH ×4 (05:35→22:42)
[2019-01-24] MEDS: ASPIRIN 81 MG CHEWABLE TABLETS PO SCH (09:23)
[2019-01-24] MEDS: RANITIDINE HCL 150 MG TABLET (FP) PO SCH ×2 (09:23→22:42)
[2019-01-24] MEDS: hydrOXYzine PAMOATE 25 MG CAPSULE (FP) PO PRN (09:23)
[2019-01-24] MEDS: LISINOPRIL 5 MG TABLET (FP) PO SCH (09:23)
[2019-01-24] MEDS: chlordiazePOXIDE HCL 25 MG CAPSULE PO PRN ×2 (09:24→13:35)
[2019-01-24] MEDS: NICOTINE 21 MG/24 HOURS TOPICAL PATCH TD SCH (09:29)
[2019-01-24] MEDS ORDERED: METHADONE HCL 10 MG TABLET PO ONE (10:00)
[2019-01-24] MEDS: PRENATAL VITAMINS W/ FOLIC ACID TABLET (FP) PO SCH (11:26)
[2019-01-24] MEDS: MAG HYDROX/AL HYDROX/SIMETH 30 ML UNIT-DOSE CUP PO PRN ×2 (11:28→21:46)
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
[2019-01-24] MEDS ORDERED: FLU VACCINE QUAD 60 MCG/0.5 ML (MDV 18-19) IM ONE (12:00)
--- NOTE | 2019-01-24 12:59 | PN ---
[facility] CIWA - CIWA Score Nausea/Vomitin-No Nausea/No Vomiting Muscle Tremors: 2 Anxiety: 2 Agitation: 2 Paroxysmal Sweats: 1-Minimal Palms Moist Orientation: 3-Disoriented Date>2 days Tacttile Disturbances: 0-None Auditory Disturbances: 0-None Visual Disturbances: 0-None Headache: 2-Mild CIWA-Ar Total Score: 12 S COWS - Scale Resting Pulse: 0= [place] 80 or Below Sweatin= Chills/Flushing Restless Observation: 0= Sits Still Pupil Size: 0= Normal to Room Light Bone or Joint Aches: 1= Mild Discomfort Runny Nose/ Eye Tearin= Nasal Congestion GI Upset > 30mins: 1= Stomach Cramp Tremor Observation of Outstretched Hands: 1= Tremor [place], Not Seen Yawning Observation: 2= >3x During Session Anxiety or Irritability: 1=Feels Anxious/Irritable Goose Flesh Skin: 0=Smooth Skin COWS Score: 8 [facility] Progress Note (SOAP) Subjective: tremor body aches sweating restlessness headaches forehead superficial skin abrasion line no bleed no signs of infection clean with soap and water pad dry cover with bacitracin ointment protected by bandage left abscess x 1 month patient "pus drained" this morning himself 2 cm round hyperpigmented center 1 cm long 1 mm depth opening no discharge erythema boarder raised Objective: 01/24/19 12:58 Vital Signs Temperature 97.7 F 01/24/19 09:35 Pulse Rate 76 01/24/19 09:35 Respiratory Rate 18 01/24/19 09:35 Blood Pressure 136/78 01/24/19 09:35 O2 Sat by Pulse Oximetry (%) Laboratory Last Values WBC 10.3 K/mm3 (4.0-10.0) H 01/23/19 14:30 RBC 4.02 M/mm3 (4.00-5.60) 01/23/19 14:30 Hgb 13.2 GM/dL (11.7-16.9) 01/23/19 14:30 Hct 39.1 % (35.4-49) 01/23/19 14:30 MCV 97.3 fl (80-96) H 01/23/19 14:30 MCH 33.0 pg (25.7-33.7) 01/23/19 14:30 MCHC 33.9 g/dl (32.0-35.9) 01/23/19 14:30 RDW 13.4 % (11.9-15.9) 01/23/19 14:30 Plt Count 284 K/MM3 (134-434) D 01/23/19 14:30 MPV 9.0 fl (7.5-11.1) 01/23/19 14:30 Absolute Neuts (auto) 5.4 K/mm3 (1.5-8.0) 01/23/19 14:30 Neutrophils % 52.7 % (42.8-82.8) 01/23/19 14:30 Lymphocytes % 38.6 % (8-40) 01/23/19 14:30 Monocytes % 6.2 % (3.8-10.2) 01/23/19 14:30 Eosinophils % 1.5 % (0-4.5) 01/23/19 14:30 Basophils % 1.0 % (0-2.0) 01/23/19 14:30 Nucleated RBC % 0 % (0-0) 01/23/19 14:30 Sodium 149 mmol/L (136-145) H 01/23/19 14:30 Potassium 4.4 mmol/L (3.5-5.1) 01/23/19 14:30 Chloride 115 mmol/L (98-107) H 01/23/19 14:30 Carbon Dioxide 28 mmol/L (21-32) 01/23/19 14:30 Anion Gap 7 MMOL/L (8-16) L 01/23/19 14:30 BUN 12 mg/dL (7-18) 01/23/19 14:30 Creatinine 1.0 mg/dL (0.55-1.3) 01/23/19 14:30 Creat Clearance w eGFR > 60 (>60) 01/23/19 14:30 POC Glucometer 91 UNITS (80-120) 01/23/19 13:39 Random Glucose 97 mg/dL (74-106) 01/23/19 14:30 Calcium 8.3 mg/dL (8.5-10.1) L 01/23/19 14:30 Total Bilirubin 0.7 mg/dL (0.2-1) 01/23/19 14:30 AST 15 U/L (15-37) 01/23/19 14:30 ALT 22 U/L (13-61) 01/23/19 14:30 Alkaline Phosphatase 75 U/L (45-117) 01/23/19 14:30 Total Protein 7.2 g/dl (6.4-8.2) 01/23/19 14:30 Albumin 3.8 g/dl (3.4-5.0) 01/23/19 14:30 HIV 1&2 Antibody Screen Negative 01/23/19 14:30 HIV P24 Antigen Negative 01/23/19 14:30 lab noted Assessment: 01/24/19 12:58 withdrawal sx skin abrasion forehead abscess left shoulder history of bipolar psych referral treated with seroquel 01/24/19 13:01 GERD Plan: continue detox bacitracin ointment keflex 500 mg bid bandage to forehead and left shoulder zantac
[2019-01-24] MEDS: BACITRACIN 0.9 GM PACKET TP SCH ×2 (13:30→22:41)
[2019-01-24] MEDS: CEPHALEXIN MONOHYDRATE 500 MG CAPSULE (UD) PO SCH ×2 (13:30→22:41)
[2019-01-24 17:32] LABS: URINE APPEARANCE CLEAR; URINE BILIRUBIN NEGATIVE (<2.0 mg/dL); URINE COLOR AMBER; URINE GLUCOSE (UA) NEGATIVE (NEGATIVE); URINE KETONE NEGATIVE (NEGATIVE); URINE LEUK ESTERASE NEGATIVE (NEGATIVE); URINE NITRITE NEGATIVE (NEGATIVE); URINE PROTEIN NEGATIVE (NEGATIVE)
[2019-01-24] MEDS ORDERED: QUEtiapine FUMARATE 50 MG TABLET PO SCH (22:00)
[2019-01-24] MEDS ORDERED: QUEtiapine FUMARATE 100 MG TABLET (FP) PO SCH (22:00)
[2019-01-24] MEDS: THIAMINE HCL 100 MG TABLET (FP) PO SCH (22:41)
[2019-01-24] MEDS: MELATONIN 5 MG TABLETS PO PRN (22:42)
[2019-01-25] MEDS: chlordiazePOXIDE HCL 25 MG CAPSULE PO SCH ×2 (05:22→10:24)
[2019-01-25] MEDS: METHADONE HCL 10 MG TABLET PO SCH (05:22)
[2019-01-25] MEDS: ASPIRIN 81 MG CHEWABLE TABLETS PO SCH (10:24)
[2019-01-25] MEDS: NICOTINE 21 MG/24 HOURS TOPICAL PATCH TD SCH (10:24)
[2019-01-25] MEDS: LISINOPRIL 5 MG TABLET (FP) PO SCH (10:24)
[2019-01-25] MEDS: PRENATAL VITAMINS W/ FOLIC ACID TABLET (FP) PO SCH (10:24)
[2019-01-25] MEDS: BACITRACIN 0.9 GM PACKET TP SCH ×2 (10:24→22:26)
[2019-01-25] MEDS: CEPHALEXIN MONOHYDRATE 500 MG CAPSULE (UD) PO SCH (10:24)
[2019-01-25] MEDS: RANITIDINE HCL 150 MG TABLET (FP) PO SCH ×2 (10:24→22:26)
--- NOTE | 2019-01-25 10:38 | PN ---
[facility] CIWA - CIWA Score Nausea/Vomitin-No Nausea/No Vomiting Muscle Tremors: 2 Anxiety: 1-Mildly Anxious Agitation: 3 Paroxysmal Sweats: 1-Minimal Palms Moist Orientation: 1-Uncertain about Date Tacttile Disturbances: 0-None Auditory Disturbances: 0-None Visual Disturbances: 0-None Headache: 1-Very Mild CIWA-Ar Total Score: 9 [facility] COWS - Scale Resting Pulse: 0= [place] 80 or Below Sweatin= Chills/Flushing Restless Observation: 0= Sits Still Pupil Size: 0= Normal to Room Light Bone or Joint Aches: 1= Mild Discomfort Runny Nose/ Eye Tearin= Nasal Congestion GI Upset > 30mins: 0= None Tremor Observation of Outstretched Hands: 1= Tremor [place], Not Seen Yawning Observation: 0= None Anxiety or Irritability: 1=Feels Anxious/Irritable Goose Flesh Skin: 0=Smooth Skin COWS Score: 5 [facility] Progress Note (SOAP) Subjective: patient requests psychotropic medication dosage adjustment psych referral patient reports having diarrhea requesting ensure bmi 27 patient has ensure 60 ml tid encourage the nurse administer peptobismol patient is alert appeared well rested social with peers in day room and hallway encourage hand washing reported mild tremor less sweating sleep better at night Objective: 01/25/19 11:51 Vital Signs Temperature 96.8 F L 01/25/19 09:13 Pulse Rate 72 01/25/19 09:13 Respiratory Rate 18 01/25/19 09:13 Blood Pressure 106/68 01/25/19 09:13 O2 Sat by Pulse Oximetry (%) Laboratory Last Values WBC 10.3 K/mm3 (4.0-10.0) H 01/23/19 14:30 RBC 4.02 M/mm3 (4.00-5.60) 01/23/19 14:30 Hgb 13.2 GM/dL (11.7-16.9) 01/23/19 14:30 Hct 39.1 % (35.4-49) 01/23/19 14:30 MCV 97.3 fl (80-96) H 01/23/19 14:30 MCH 33.0 pg (25.7-33.7) 01/23/19 14:30 MCHC 33.9 g/dl (32.0-35.9) 01/23/19 14:30 RDW 13.4 % (11.9-15.9) 01/23/19 14:30 Plt Count 284 K/MM3 (134-434) D 01/23/19 14:30 MPV 9.0 fl (7.5-11.1) 01/23/19 14:30 Absolute Neuts (auto) 5.4 K/mm3 (1.5-8.0) 01/23/19 14:30 Neutrophils % 52.7 % (42.8-82.8) 01/23/19 14:30 Lymphocytes % 38.6 % (8-40) 01/23/19 14:30 Monocytes % 6.2 % (3.8-10.2) 01/23/19 14:30 Eosinophils % 1.5 % (0-4.5) 01/23/19 14:30 Basophils % 1.0 % (0-2.0) 01/23/19 14:30 Nucleated RBC % 0 % (0-0) 01/23/19 14:30 Sodium 149 mmol/L (136-145) H 01/23/19 14:30 Potassium 4.4 mmol/L (3.5-5.1) 01/23/19 14:30 Chloride 115 mmol/L (98-107) H 01/23/19 14:30 Carbon Dioxide 28 mmol/L (21-32) 01/23/19 14:30 Anion Gap 7 MMOL/L (8-16) L 01/23/19 14:30 BUN 12 mg/dL (7-18) 01/23/19 14:30 Creatinine 1.0 mg/dL (0.55-1.3) 01/23/19 14:30 Creat Clearance w eGFR > 60 (>60) 01/23/19 14:30 POC Glucometer 130 UNITS (80-120) 01/24/19 16:41 Random Glucose 97 mg/dL (74-106) 01/23/19 14:30 Calcium 8.3 mg/dL (8.5-10.1) L 01/23/19 14:30 Total Bilirubin 0.7 mg/dL (0.2-1) 01/23/19 14:30 AST 15 U/L (15-37) 01/23/19 14:30 ALT 22 U/L (13-61) 01/23/19 14:30 Alkaline Phosphatase 75 U/L (45-117) 01/23/19 14:30 Total Protein 7.2 g/dl (6.4-8.2) 01/23/19 14:30 Albumin 3.8 g/dl (3.4-5.0) 01/23/19 14:30 Urine Color Kat 01/24/19 15:45 Urine Appearance Clear 01/24/19 15:45 Urine pH 6.0 (5.0-8.0) 01/24/19 15:45 Ur Specific [place] 1.028 (1.010-1.035) 01/24/19 15:45 Urine Protein Negative (NEGATIVE) 01/24/19 15:45 Urine Glucose (UA) Negative (NEGATIVE) 01/24/19 15:45 Urine Ketones Negative (NEGATIVE) 01/24/19 15:45 Urine Blood Negative (NEGATIVE) 01/24/19 15:45 Urine Nitrite Negative (NEGATIVE) 01/24/19 15:45 Urine Bilirubin Negative (<2.0 mg/dL) 01/24/19 15:45 Urine Urobilinogen 2.0 mg/dL (0.2-1.0) 01/24/19 15:45 Ur Leukocyte Esterase Negative (NEGATIVE) 01/24/19 15:45 RPR Titer Nonreactive (NONREACTIVE) 01/23/19 14:59 HIV 1&2 Antibody Screen Negative 01/23/19 14:30 HIV P24 Antigen Negative 01/23/19 14:30 lab noted Assessment: 01/25/19 11:51 withdrawal sx 01/25/19 11:51 diarrhea Plan: continue detox pepto bismol
[2019-01-25] MEDS: BISMUTH SUBSALICYLATE 524 MG/30 ML UD PO PRN (10:49)
[2019-01-25] MEDS ORDERED: QUEtiapine FUMARATE 50 MG TABLET PO SCH (12:45)
--- NOTE | 2019-01-25 15:50 | PN ---
Psychiatric Progress Note Vital Signs: Vital Signs Period Temp Pulse Resp BP Sys/[place] Pulse Ox Last 24 Hr 96.8 F-98.3 F 54-83 18-18 99-125/49-68 Date of Session: 01/25/19 Chief Complaint:: " I need more seroquel. I get agitated easily ". HPI: Day 3 of detoxification. Patient keeps on pressuring staff for " more seroquel " in his regimen. Endorses irritability and " mood swings ". Mr Pina insists that he is " not on enough seroquel ". ROS: Unremarkable. No somatic complaints. Cognition : good. Patient is ambulatory. Steady gait. Current Medications: Active Medications Generic Name Dose Route Start Last Admin Trade Name Freq PRN Reason Stop Dose Admin Acetaminophen 650 mg 01/23/19 14:32 Tylenol - PO Q6H PRN PAIN LEVEL 4 - 6 Acetaminophen 650 mg 01/23/19 14:32 Tylenol - PO Q6H PRN FEVER Al Hydroxide/Mg Hydroxide 30 ml 01/23/19 14:32 01/24/19 21:46 Mylanta Oral Suspension - PO 30 ml Q6H PRN Administration DYSPEPSIA Aspirin 81 mg 01/24/19 10:00 01/25/19 10:24 Asa - PO 81 mg DAILY VINCENT Administration Bacitracin 0.9 gm 01/24/19 12:51 01/25/19 10:24 Bacitracin - TP 0.9 gm BID VINCENT Administration Bismuth Subsalicylate 524 mg 01/23/19 14:32 01/25/19 10:49 Pepto-Bismol - PO 524 mg Q1H PRN Administration DIARRHEA Chlordiazepoxide HCl 10 mg 01/25/19 17:00 Librium - PO 01/26/19 11:01 [id number] VINCENT Chlordiazepoxide HCl 10 mg 01/26/19 17:00 Librium - PO 01/27/19 17:01 Q12H VINCENT Chlordiazepoxide HCl 10 mg 01/25/19 17:00 Librium - PO 01/26/19 17:00 Q4H PRN WITHDRAWAL(CONT SUBST) Chlordiazepoxide HCl 25 mg 01/23/19 14:38 01/24/19 13:35 Librium - PO 01/25/19 17:00 25 mg Q4H PRN Administration WITHDRAWAL(CONT SUBST) Dicyclomine HCl 10 mg 01/23/19 14:32 Bentyl - PO 01/29/19 14:34 Q6H PRN Abdominal Cramping Eucalyptus/Menthol/Phenol/Sorbitol 1 each 01/23/19 14:32 Cepastat Lozenge - MM 01/29/19 14:33 Q4H PRN SORE THROAT Guaifenesin 10 ml 01/23/19 14:32 Robitussin - PO Q6H PRN COUGH Hydroxyzine Pamoate 25 mg 01/23/19 14:32 01/24/19 09:23 Vistaril - PO 01/29/19 14:33 25 mg Q6H PRN Administration For Anxiety Lisinopril 5 mg 01/24/19 10:00 01/25/19 10:24 Prinivil PO Not Given DAILY VINCENT Magnesium Citrate 300 ml 01/23/19 14:32 Citroma - PO Q48H PRN CONSTIPATION Magnesium Hydroxide 30 ml 01/23/19 14:32 Milk Of Magnesia - PO PRN PRN CONSTIPATION Melatonin 5 mg 01/23/19 14:32 01/24/19 22:42 Melatonin PO 5 mg HS PRN Administration INSOMNIA Methadone HCl 30 mg 01/25/19 06:00 01/25/19 05:22 Dolophine - PO 30 mg DAILY@0600 [facility] Administration Nicotine 21 mg 01/24/19 10:00 01/25/19 10:24 Nicoderm Patch - TD Not Given DAILY [facility] Nicotine Polacrilex 2 mg 01/23/19 14:32 Nicorette Gum - BUC Q2H PRN NICOTINE REPLACEMENT RX Ondansetron HCl 4 mg 01/23/19 14:32 01/25/19 12:21 Zofran Odt - SL 01/29/19 14:34 4 mg Q12H PRN Administration Nausea/Vomiting Multivit/Folic Acid/Iron 1 tab 01/24/19 10:00 01/25/19 10:24 Vitamins (Sjr) - PO 1 tab DAILY VINCENT Administration Quetiapine Fumarate 200 mg 01/25/19 22:00 Seroquel - PO HS VINCENT Quetiapine Fumarate 100 mg 01/26/19 10:00 Seroquel - PO DAILY VINCENT Ranitidine HCl 150 mg 01/23/19 22:00 01/25/19 10:24 Zantac - PO 150 mg BID VINCENT Administration Thiamine HCl 100 mg 01/23/19 22:00 01/24/19 22:41 Vitamin B1 - PO 100 mg HS VINCENT Administration Medication(s) Change(s): Medications revisited and discussed with the patient. Records are reviewed. Seroquel is now raised to 100 mg po daily + 200 mg po hs. Side effects/benefits discussed with patient. Mr Pina is agreeable with this plan of care. Current Side Effect: No Lab tests ordered: No Lab tests reviewed: Yes Provider note:: Patient is re-interviewed. Complaint of increasing irritability and poor frustration tolerance : validated. Mr Pina is made aware of the true purpose of seroquel, which is management of psychosis and mood stabilization. NOT for inducing sleep during daytime. Patient expresses his understanding of the teaching. Informed of the dose increase. Patient calmed and left the office , reassured and confident. Therapeutic rapport with staff is preserved. Patient agrees to pursue his detoxification treatment. Total face to face time:: 25 Mental Status Exam - Mental Status Exam Alert and Oriented to: Time, Place, Person Cognitive Function: Good Patient Appearance: Well Groomed Mood: Anxious, Apprehensive, Irritable Affect: Mood Congruent Patient Behavior: Cooperative Speech Pattern: Clear, Appropriate Voice Loudness: Normal Thought Process: Goal Oriented Thought Disorder: Not Present Hallucinations: Denies Suicidal Ideation: Denies Homicidal Ideation: Denies Insight/Judgement: Poor Sleep: Poorly, Difficulty falling asleep Appetite: Good Muscle strength/Tone: Normal Gait/Station: Normal Psychiatric Treatment Plan - Problem List (1) Alcohol dependence with uncomplicated withdrawal Current Visit: Yes (2) Opioid dependence on agonist therapy Current Visit: Yes (3) Cocaine dependence, uncomplicated Current Visit: Yes (4) Nicotine dependence Current Visit: Yes Qualifiers: Nicotine product type: cigarettes Substance use status: uncomplicated Qualified Code(s): F17.210 - Nicotine dependence, cigarettes, uncomplicated (5) Substance induced mood disorder Current Visit: Yes (6) Bipolar disorder Current Visit: Yes (7) Insomnia Current Visit: Yes
[2019-01-25] MEDS ORDERED: chlordiazePOXIDE HCL 10 MG CAPSULE PO PRN (17:00)
[2019-01-25] MEDS: chlordiazePOXIDE HCL 10 MG CAPSULE PO SCH ×2 (17:48→22:26)
[2019-01-25] MEDS: MAG HYDROX/AL HYDROX/SIMETH 30 ML UNIT-DOSE CUP PO PRN (20:54)
[2019-01-25] MEDS: hydrOXYzine PAMOATE 25 MG CAPSULE (FP) PO PRN (20:54)
[2019-01-25] MEDS: MELATONIN 5 MG TABLETS PO PRN (22:26)
[2019-01-25] MEDS: QUEtiapine FUMARATE 200 MG TABLET PO SCH (22:26)
[2019-01-25] MEDS: THIAMINE HCL 100 MG TABLET (FP) PO SCH (22:26)
[2019-01-26] MEDS: BISMUTH SUBSALICYLATE 524 MG/30 ML UD PO PRN (02:14)
[2019-01-26] MEDS: METHADONE HCL 10 MG TABLET PO SCH (05:23)
[2019-01-26] MEDS: chlordiazePOXIDE HCL 10 MG CAPSULE PO SCH ×3 (05:23→17:50)
[2019-01-26] MEDS: LISINOPRIL 5 MG TABLET (FP) PO SCH (10:26)
[2019-01-26] MEDS: ASPIRIN 81 MG CHEWABLE TABLETS PO SCH (10:26)
[2019-01-26] MEDS: PRENATAL VITAMINS W/ FOLIC ACID TABLET (FP) PO SCH (10:26)
[2019-01-26] MEDS: RANITIDINE HCL 150 MG TABLET (FP) PO SCH ×2 (10:26→22:06)
[2019-01-26] MEDS: BACITRACIN 0.9 GM PACKET TP SCH ×2 (10:26→22:06)
[2019-01-26] MEDS: QUEtiapine FUMARATE 100 MG TABLET (FP) PO SCH (10:26)
[2019-01-26] MEDS: NICOTINE 21 MG/24 HOURS TOPICAL PATCH TD SCH (10:28)
--- NOTE | 2019-01-26 17:33 | PN ---
S Progress Note (SOAP) Subjective: Anxious, Diarrhea, Tremors. Objective: PATIENT A & O X 2 (UNCERTAIN ABOUT CURRENT DAY / DATE). PATIENT OBSERVED AMBULATING ON UNIT. IN NO ACUTE DISTRESS. 01/26/19 17:32 Vital Signs Temperature 97.6 F 01/26/19 14:00 Pulse Rate 80 01/26/19 14:00 Respiratory Rate 18 01/26/19 14:00 Blood Pressure 110/70 01/26/19 14:00 O2 Sat by Pulse Oximetry (%) Laboratory Tests 01/23/19 01/23/19 01/23/19 13:39 14:30 14:30 WBC 10.3 H RBC 4.02 Hgb 13.2 Hct 39.1 MCV 97.3 H MCH 33.0 MCHC 33.9 RDW 13.4 Plt Count 284 D MPV 9.0 Absolute Neuts (auto) 5.4 Neutrophils % 52.7 Lymphocytes % 38.6 Monocytes % 6.2 Eosinophils % 1.5 Basophils % 1.0 Nucleated RBC % 0 Sodium Potassium Chloride Carbon Dioxide Anion Gap BUN Creatinine Creat Clearance w eGFR POC Glucometer 91 Random Glucose Calcium Total Bilirubin AST ALT Alkaline Phosphatase Total Protein Albumin Urine Color Urine Appearance Urine pH Ur Specific [place] Urine Protein Urine Glucose (UA) Urine Ketones Urine Blood Urine Nitrite Urine Bilirubin Urine Urobilinogen Ur Leukocyte Esterase RPR Titer HIV 1&2 Antibody Screen Negative HIV P24 Antigen Negative 01/23/19 01/23/19 01/24/19 14:30 14:59 15:45 WBC RBC Hgb Hct MCV MCH MCHC RDW Plt Count MPV Absolute Neuts (auto) Neutrophils % Lymphocytes % Monocytes % Eosinophils % Basophils % Nucleated RBC % Sodium 149 H Potassium 4.4 Chloride 115 H Carbon Dioxide 28 Anion Gap 7 L BUN 12 Creatinine 1.0 Creat Clearance w eGFR > 60 POC Glucometer Random Glucose 97 Calcium 8.3 L Total Bilirubin 0.7 AST 15 ALT 22 Alkaline Phosphatase 75 Total Protein 7.2 Albumin 3.8 Urine Color Kat Urine Appearance Clear Urine pH 6.0 Ur Specific [place] 1.028 Urine Protein Negative Urine Glucose (UA) Negative Urine Ketones Negative Urine Blood Negative Urine Nitrite Negative Urine Bilirubin Negative Urine Urobilinogen 2.0 Ur Leukocyte Esterase Negative RPR Titer Nonreactive HIV 1&2 Antibody Screen HIV P24 Antigen 01/24/19 16:41 WBC RBC Hgb Hct MCV MCH MCHC RDW Plt Count MPV Absolute Neuts (auto) Neutrophils % Lymphocytes % Monocytes % Eosinophils % Basophils % Nucleated RBC % Sodium Potassium Chloride Carbon Dioxide Anion Gap BUN Creatinine Creat Clearance w eGFR POC Glucometer 130 Random Glucose Calcium Total Bilirubin AST ALT Alkaline Phosphatase Total Protein Albumin Urine Color Urine Appearance Urine pH Ur Specific [place] Urine Protein Urine Glucose (UA) Urine Ketones Urine Blood Urine Nitrite Urine Bilirubin Urine Urobilinogen Ur Leukocyte Esterase RPR Titer HIV 1&2 Antibody Screen HIV P24 Antigen LABS NOTED. Assessment: 01/26/19 17:32 WITHDRAWAL SYMPTOMS. Plan: CONTINUE DETOX. PATIENT SCHEDULED FOR D/C TOMORROW.
[2019-01-26] MEDS: MAG HYDROX/AL HYDROX/SIMETH 30 ML UNIT-DOSE CUP PO PRN (20:37)
[2019-01-26] MEDS: THIAMINE HCL 100 MG TABLET (FP) PO SCH (22:06)
[2019-01-26] MEDS: QUEtiapine FUMARATE 200 MG TABLET PO SCH (22:06)
[2019-01-27] MEDS: METHADONE HCL 10 MG TABLET PO SCH (05:28)
[2019-01-27] MEDS: chlordiazePOXIDE HCL 10 MG CAPSULE PO SCH (05:28)
[2019-01-27 09:13] VITALS: BP 117/72; PULSE 92; TEMP 97.6
[2019-01-27] MEDS: PRENATAL VITAMINS W/ FOLIC ACID TABLET (FP) PO SCH (10:06)
[2019-01-27] MEDS: LISINOPRIL 5 MG TABLET (FP) PO SCH (10:06)
[2019-01-27] MEDS: RANITIDINE HCL 150 MG TABLET (FP) PO SCH (10:06)
[2019-01-27] MEDS: BACITRACIN 0.9 GM PACKET TP SCH (10:06)
[2019-01-27] MEDS: QUEtiapine FUMARATE 100 MG TABLET (FP) PO SCH (10:06)
[2019-01-27] MEDS: ASPIRIN 81 MG CHEWABLE TABLETS PO SCH (10:07)
[2019-01-27] MEDS: NICOTINE 21 MG/24 HOURS TOPICAL PATCH TD SCH (10:07)
[2019-01-27] MEDS: MAG HYDROX/AL HYDROX/SIMETH 30 ML UNIT-DOSE CUP PO PRN (10:33)
--- NOTE | 2019-01-27 19:16 | DS ---
[facility] Detox Discharge Summary Admission Date: 01/23/19 Discharge Date: 01/27/19 - History Present History: Alcohol Dependence, Cocaine Dependence, Opioid Dependence, MMTP Additional Comments: PATIENT GOING TO [facility] ([place], [place]) FOR AFTERCARE. PATIENT WAS DISCHARGED FROM DETOX UNIT IN STABLE MEDICAL CONDITION. Pertinent Past History: History of CVA, History of TIA, G.E.R.D., History of Depression, History of Bipolar Disorder, M.M.T.P., Nicotine Dependence, HTN, Insomnia. - Physical Exam Results Vital Signs: Vital Signs Temperature 97.6 F 01/27/19 09:12 Pulse Rate 92 H 01/27/19 09:12 Respiratory Rate 18 01/27/19 09:12 Blood Pressure 117/72 01/27/19 09:12 O2 Sat by Pulse Oximetry (%) Pertinent Admission Physical Exam Findings: WITHDRAWAL SYMPTOMS. Laboratory Tests 01/23/19 01/23/19 01/23/19 13:39 14:30 14:30 WBC 10.3 H RBC 4.02 Hgb 13.2 Hct 39.1 MCV 97.3 H MCH 33.0 MCHC 33.9 RDW 13.4 Plt Count 284 D MPV 9.0 Absolute Neuts (auto) 5.4 Neutrophils % 52.7 Lymphocytes % 38.6 Monocytes % 6.2 Eosinophils % 1.5 Basophils % 1.0 Nucleated RBC % 0 Sodium Potassium Chloride Carbon Dioxide Anion Gap BUN Creatinine Creat Clearance w eGFR POC Glucometer 91 Random Glucose Calcium Total Bilirubin AST ALT Alkaline Phosphatase Total Protein Albumin Urine Color Urine Appearance Urine pH Ur Specific [place] Urine Protein Urine Glucose (UA) Urine Ketones Urine Blood Urine Nitrite Urine Bilirubin Urine Urobilinogen Ur Leukocyte Esterase RPR Titer HIV 1&2 Antibody Screen Negative HIV P24 Antigen Negative 01/23/19 01/23/19 01/24/19 14:30 14:59 15:45 WBC RBC Hgb Hct MCV MCH MCHC RDW Plt Count MPV Absolute Neuts (auto) Neutrophils % Lymphocytes % Monocytes % Eosinophils % Basophils % Nucleated RBC % Sodium 149 H Potassium 4.4 Chloride 115 H Carbon Dioxide 28 Anion Gap 7 L BUN 12 Creatinine 1.0 Creat Clearance w eGFR > 60 POC Glucometer Random Glucose 97 Calcium 8.3 L Total Bilirubin 0.7 AST 15 ALT 22 Alkaline Phosphatase 75 Total Protein 7.2 Albumin 3.8 Urine Color Kat Urine Appearance Clear Urine pH 6.0 Ur Specific [place] 1.028 Urine Protein Negative Urine Glucose (UA) Negative Urine Ketones Negative Urine Blood Negative Urine Nitrite Negative Urine Bilirubin Negative Urine Urobilinogen 2.0 Ur Leukocyte Esterase Negative RPR Titer Nonreactive HIV 1&2 Antibody Screen HIV P24 Antigen 01/24/19 16:41 WBC RBC Hgb Hct MCV MCH MCHC RDW Plt Count MPV Absolute Neuts (auto) Neutrophils % Lymphocytes % Monocytes % Eosinophils % Basophils % Nucleated RBC % Sodium Potassium Chloride Carbon Dioxide Anion Gap BUN Creatinine Creat Clearance w eGFR POC Glucometer 130 Random Glucose Calcium Total Bilirubin AST ALT Alkaline Phosphatase Total Protein Albumin Urine Color Urine Appearance Urine pH Ur Specific [place] Urine Protein Urine Glucose (UA) Urine Ketones Urine Blood Urine Nitrite Urine Bilirubin Urine Urobilinogen Ur Leukocyte Esterase RPR Titer HIV 1&2 Antibody Screen HIV P24 Antigen LABS NOTED. - Treatment Hospital Course: Detox Protocol Followed, Detoxed Safely, Responded well, Discharged Condition Good, Rehab Referral Accepted Patient has Accepted a Rehab Referral to: [facility] ([place], [place]). - Medication Discharge Medications: Ambulatory Orders Quetiapine Fumarate [Seroquel] 100 mg PO BID #60 tablet 02/24/17 Alprazolam [Xanax] 2 mg PO BID 01/07/19 Zolpidem Tartrate [Ambien] 10 mg PO HS 01/07/19 Aspirin [ASA -] 81 mg PO DAILY #30 tab.chew 01/11/19 Lisinopril [Prinivil] 5 mg PO DAILY #30 tablet 01/11/19 Ranitidine [Zantac -] 150 mg PO BID #30 tablet 01/11/19 Quetiapine Fumarate [Seroquel -] 200 mg PO HS #30 tab 01/27/19 Quetiapine Fumarate [Seroquel] 100 mg PO DAILY #30 tablet 01/27/19 - Diagnosis (1) Alcohol dependence with uncomplicated withdrawal Status: Acute (2) Bipolar disorder Status: Chronic Qualifiers: Active/Remission status: remission status unspecified Qualified Code(s): F31.9 - Bipolar disorder, unspecified (3) Cocaine dependence, uncomplicated Status: Chronic (4) GERD (gastroesophageal reflux disease) Status: Chronic Qualifiers: Esophagitis presence: without esophagitis Qualified Code(s): K21.9 - Gastro -esophageal reflux disease without esophagitis (5) Hypertension Status: Chronic Qualifiers: Hypertension type: essential hypertension Qualified Code(s): I10 - Essential (primary) hypertension (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
== END 2019-01-27 10:54 | disposition other institution (70) | DRG 773 ==
LOC: YASAS 10:07 → Y3N 14:52
PROVIDERS: ADMIT Surgery; ATTEND Surgery
PROC: HZ2ZZZZ Detoxification Services for Substance Abuse Treatment (ICD-10-PCS; principal; 2019-01-23)
DX: F10.230 Alcohol dependence with withdrawal, uncomplicated (principal); F11.20 Opioid dependence, uncomplicated; F14.20 Cocaine dependence, uncomplicated; F17.210 Nicotine dependence, cigarettes, uncomplicated; F31.81 Bipolar II disorder; F31.9 Bipolar disorder, unspecified; F19.24 Other psychoactive substance dependence with psychoactive substance-induced mood disorder; I10 Essential (primary) hypertension; K21.9 Gastro-esophageal reflux disease without esophagitis; I69.851 Hemiplegia and hemiparesis following other cerebrovascular disease affecting right dominant side; G47.00 Insomnia, unspecified; L02.414 Cutaneous abscess of left upper limb
CPT/HCPCS: 36415; 80053; 81003; 82962; 85025; 86593; 87389; 90688; G0008; Q0162

== ENCOUNTER 2019-06-29 21:24 | Inpatient (IN) | payer OTHER ==
[2019-06-29] MEDS ORDERED: RAPID SEQUENCE INTUBATION KIT NR ONE (21:59)
[2019-06-29] MEDS ORDERED: ETOMIDATE 40 MG/20 ML VIAL IVPUSH ONE (22:00)
[2019-06-29] MEDS ORDERED: SUCCINYLCHOLINE CHLORIDE 200 MG/10 ML VIAL IVPUSH ONE (22:00)
[2019-06-29] MEDS ORDERED: PROPOFOL 200 MG/20 ML VIAL IVPUSH ONE ×2 (22:08→22:40)
[2019-06-29] MEDS ORDERED: PROPOFOL 1,000,000 MCG/100 ML VIAL IVPB SCH (22:08)
[2019-06-29] MEDS ORDERED: PROPOFOL 1,000,000 MCG/100 ML VIAL ONE (22:12)
[2019-06-29] MEDS: PROPOFOL 1,000,000 MCG/100 ML VIAL IVPB SCH (22:18)
[2019-06-29 22:30] LABS: BASO % 1.1 % (0-2.0); HEMATOCRIT 45.9 % (35.4-49); HEMOGLOBIN 15.2 GM/dL (11.7-16.9); LYMPH % 34.7 % (8-40); MCH 31.6 pg (25.7-33.7); MEAN CELL VOLUME 95.7 fl (80-96); MONO % 5.9 % (3.8-10.2); NEUT % 57.3 % (42.8-82.8); PLATELET COUNT 269 K/MM3 (134-434); RBC 4.79 M/mm3 (4.00-5.60); RDW 13.9 % (11.9-15.9); WHITE BLOOD COUNT 13.6 K/mm3 (4.0-10.0)
[2019-06-29] MEDS ORDERED: LABETALOL HCL 5 MG/1 ML (200MG/40ML VIAL) IVPB ONE (22:30)
[2019-06-29 22:42] LABS: PH,URINE 8.5 (5.0-8.0); URINE APPEARANCE CLEAR; URINE BILIRUBIN NEGATIVE (NEGATIVE); URINE COLOR YELLOW; URINE GLUCOSE (UA) NEGATIVE (NEGATIVE); URINE KETONE NEGATIVE (NEGATIVE); URINE LEUK ESTERASE NEGATIVE (NEGATIVE); URINE NITRITE NEGATIVE (NEGATIVE); URINE PROTEIN NEGATIVE (NEGATIVE); URINE UROBILINOGEN 0.2 mg/dL (0.2-1.0)
[2019-06-29 22:44] LABS: INR 0.88 (0.83-1.09); PROTHROMBIN TIME (PATIENT) 10.4 SEC (9.7-13.0)
[2019-06-29] MEDS: SODIUM CHLORIDE 1,000 ML IV SCH (22:53)
[2019-06-29] MEDS ORDERED: MORPHINE SULFATE 2 MG/ML VIAL ONE (22:58)
[2019-06-29 23:13] LABS: ALBUMIN 4.3 g/dl (3.4-5.0); ALK PHOS 83 U/L (45-117); ANION GAP 6 MMOL/L (8-16); BILIRUBIN,TOTAL 0.4 mg/dL (0.2-1); BLOOD UREA NITROGEN 13.8 mg/dL (7-18); CALCIUM 9.2 mg/dL (8.5-10.1); CHLORIDE 105 mmol/L (98-107); CHOLESTEROL 163 mg/dL (50-200); CO2 30 mmol/L (21-32); CREATININE 1.1 mg/dL (0.55-1.3); GLUCOSE,RANDOM 155 mg/dL (74-106); HDL CHOLESTEROL 55 mg/dL (40-60); POTASSIUM 4.6 mmol/L (3.5-5.1); SGOT/AST 37 U/L (15-37); SGPT/ALT 26 U/L (13-61); SODIUM 141 mmol/L (136-145); TOT PROT 8.3 g/dl (6.4-8.2); TRIGLYCERIDES 465 mg/dL (0-150)
[2019-06-29 23:13] LABS: COCAINE, UR NEGATIVE ng/ml (CUTOFF=300); OPIATES, URI NEGATIVE ng/ml (CUTOFF=300); PHENCYCLIDINE,URINE NEGATIVE ng/ml (CUTOFF=25); URINE AMPHETAMINES NEGATIVE ng/ml (CUTOFF=500); URINE BARBITURATES NEGATIVE ng/ml (CUTOFF=200)
[2019-06-29 23:16] LABS: METHADONE, UR POSITIVE ng/ml (CUTOFF=300); URINE BENZODIAZEPINES POSITIVE ng/ml (CUTOFF=200)
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
[2019-06-29] MEDS ORDERED: fentaNYL CITRATE 250 MCG/5 ML VIAL ONE (23:26)
[2019-06-29] MEDS ORDERED: FENTANYL INJECTION 500 MCG in DEXTROSE 5%-WATER - 90 ML IVPB SCH (23:30)
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
[2019-06-30] MEDS: INSULIN SLIDING SCALE (NOVOLOG) 1 VIAL SQ SCH ×4 (01:38→21:58)
[2019-06-30] MEDS ORDERED: FOLIC ACID INJECTION - 1 MG, THIAMINE HCL 100 MG, MULTIVIT INJECTION ADULT 10 ML in SOD... IVPB ONE (01:42)
[2019-06-30 01:57] LABS: ARTERIAL BLD GAS O2 SATURATION 97.6 % (95-98); ARTERIAL BLOOD GAS BASE EXCESS 3.7 meq/l (-2-2); ARTERIAL BLOOD GAS PCO2 55.2 mmHg (35-45); ARTERIAL BLOOD GAS PO2 102 mmHg (80-105); ARTERIAL BLOOD GAS pH 7.36 (7.35-7.45); CARBOXYHEMOGLOBIN 1.9 % (0-2)
[2019-06-30 02:14] LABS: ALLENS TEST POSITIVE
[2019-06-30] MEDS: PROPOFOL 1,000,000 MCG/100 ML VIAL IVPB SCH (05:14)
--- NOTE | 2019-06-30 06:56 | HP ---
CHIEF COMPLAINT: altered mental status and confusion PCP: HISTORY OF PRESENT ILLNESS: 53 y/o w/ pmh of cva 3years ago, TIA(01/03), htn, DM, is BIBA s/p altered mental status and confusion. Pt's friend found him in his room confused and altered and called EMS. Upon arrival EMS found the pt confused and altered next to a large number of xanax bottles. EMS administered narcan 2mg w/ no response. In the ED, pt remained confused and altered, therefore he was intubated and placed on propofol and fentanyl 500mg. As per ED, when pt was being worked up and evaluated, they noticed a left eye deviation and his BP was elevated to 198/ 102. Few minutes after propofol administration, pt's BP stabilized but he remained unresponsive. Head CT was negative for acute bleed and ICU was consulted. ER course was notable for: (1) Propofol 20 mcg/kg/min at 10.8 (2) Fentanyl 500mg (3) CT head- negative for acute bleed Recent Travel: unable to obtain PAST MEDICAL HISTORY: cva 3years ago, TIA(01/03), htn, DM PAST SURGICAL HISTORY: unable to obtain Social History: Smoking: denies Alcohol: denies Drugs: denies Family History: unable to obtain Allergies No Known Drug Allergies Allergy (Verified 06/29/19 22:07) coconut Allergy (Severe, Uncoded 06/29/19 22:07) Hives seafood Allergy (Severe, Uncoded 06/29/19 22:07) Hives HOME MEDICATIONS: Home Medications Medication Instructions Recorded Unobtainable 06/29/19 REVIEW OF SYSTEMS Pt intubated. Unable to obtain PHYSICAL EXAMINATION Vital Signs - 24 hr Last Vital Signs Temp Pulse Resp BP Pulse Ox 97.5 F L 55 L 14 118/78 100 06/30/19 06:00 06/30/19 06:00 06/30/19 06:58 06/30/19 06:00 06/30/19 06:58 GENERAL: pt intubated, unresponsive to pain or verbal stimuli EYES: pupils constricted b/l EARS, NOSE, THROAT: Dry mucous membranes. NECK: supple without lymphadenopathy, LUNGS: Breath sounds equal, clear to auscultation bilaterally. No wheezes, and no crackles- Pt intubated HEART: Regular rate and rhythm, normal S1 and S2 without murmur, rub or gallop. ABDOMEN: Soft, not distended, normoactive bowel sounds, no guarding, no rebound , no masses. UPPER EXTREMITIES: 2+ pulses, warm, well-perfused. No cyanosis. No peripheral edema. LOWER EXTREMITIES: 2+ pulses, warm, well-perfused. No peripheral edema. Laboratory Results - last 24 hr CBC,CMP WBC 13.6 K/mm3 (4.0-10.0) H 06/29/19 22:15 RBC 4.79 M/mm3 (4.00-5.60) 06/29/19 22:15 Hgb 15.2 GM/dL (11.7-16.9) 06/29/19:15 Hct 45.9 % (35.4-49) D 06/29/19:15 MCV 95.7 fl (80-96) 06/29/19 22:15 MCH 31.6 pg (25.7-33.7) 06/29/19:15 MCHC 33.0 g/dl (32.0-35.9) 06/29/19:15 RDW 13.9 % (11.9-15.9) 06/29/19 22:15 Plt Count 269 K/MM3 (134-434) 06/29/19 22:15 MPV 9.0 fl (7.5-11.1) 06/29/19 22:15 Absolute Neuts (auto) 7.8 K/mm3 (1.5-8.0) 06/29/19:15 Neutrophils % 57.3 % (42.8-82.8) 06/29/19:15 Lymphocytes % 34.7 % (8-40) 06/29/19 22:15 Monocytes % 5.9 % (3.8-10.2) 06/29/19:15 Eosinophils % 1.0 % (0-4.5) 06/29/19:15 Basophils % 1.1 % (0-2.0) 06/29/19 22:15 Nucleated RBC % 0 % (0-0) 06/29/19 22:15 Sodium 141 mmol/L (136-145) 06/29/19 22:15 Potassium 4.6 mmol/L (3.5-5.1) 08/15/19 22:15 Chloride 105 mmol/L (98-107) 06/29/19 22:15 Carbon Dioxide 30 mmol/L (21-32) 06/29/19 22:15 Anion Gap 6 MMOL/L (8-16) L 06/29/19 22:15 BUN 13.8 mg/dL (7-18) 06/29/19 22:15 Creatinine 1.1 mg/dL (0.55-1.3) 06/29/19 22:15 Est GFR (CKD-EPI)AfAm 88.36 06/29/19 22:15 Est GFR (CKD-EPI)NonAf 76.24 06/29/19 22:15 POC Glucometer 95 UNITS (80-120) 06/30/19 06:14 Random Glucose 155 mg/dL (74-106) H 06/29/19 22:15 Calcium 9.2 mg/dL (8.5-10.1) 06/29/19 22:15 Total Bilirubin 0.4 mg/dL (0.2-1) 06/29/19 22:15 AST 37 U/L (15-37) 06/29/19 22:15 ALT 26 U/L (13-61) 06/29/19 22:15 Alkaline Phosphatase 83 U/L (45-117) 06/29/19 22:15 Creatine Kinase 224 U/L (26-308) 06/29/19 22:15 Creatine Kinase Index 0.6 % (0.0-5.0) 06/29/19 22:15 CK-MB (CK-2) 1.4 ng/mL (0.5-3.6) 06/29/19 22:15 Troponin I < 0.02 ng/ml (0.00-0.05) 06/29/19 22:15 Total Protein 8.3 g/dl (6.4-8.2) H 06/29/19 22:15 Albumin 4.3 g/dl (3.4-5.0) 06/29/19 22:15 Triglycerides 465 mg/dL (0-150) H 06/29/19 22:15 Cholesterol 163 mg/dL (50-200) 06/29/19 22:15 Total LDL Cholesterol 91 mg/dL (5-100) 06/29/19 22:15 HDL Cholesterol 55 mg/dL (40-60) 06/29/19 22:15 ASSESSMENT/PLAN: 53 y/o w/ pmh of cva 3years ago, TIA(2), htn, DM, is BIBA for altered mental status and confusion s/p intubation, negative head ct and positive Utox being admitted for altered mental status #Altered mental status 2/2 drug overdose vs Stroke Hx of [place] drug abuse, constricted pupils on PE Utox positive Risk factors for stroke MRI brain ordered Neuro was consulted Consider holding sedation and trying a weaning trail in the am Seizure precautions needed Banana bag, thiamine and folate given for possible alcohol intox vs wernicke Transfered to ICU r/p CBC in the am #HTN Permissive BP would have been allowed till stroke was r/o but ED started propofol BP normalized Monitor BP #Alcohol abuse/Substance abuse no need for detox at the moment consider after sedation is stopped #DM BGM Insulin sliding scales #DVT ppx Lovenox sq FEN: Pt intubated, banana bag for now Dispo: f/u Brain MRI, consult neuro in am, monitor in ICU Visit type - Emergency Visit Emergency Visit: Yes ED Registration Date: 06/30/19 Care time: The patient presented to the Emergency Department on the above date and was hospitalized for further evaluation of their emergent condition. - New Patient This patient is new to me today: Yes Date on this admission: 07/04/19 - Critical Care Critical Care patient: No ATTENDING PHYSICIAN STATEMENT I saw and evaluated the patient. I reviewed the resident's note and discussed the case with the resident. I agree with the resident's findings and plan as documented. SUBJECTIVE: OBJECTIVE: ASSESSMENT AND PLAN:
--- NOTE | 2019-06-30 07:10 | PN ---
Physical Exam: SUBJECTIVE: Patient examined @ bedside. Intubated, sedated. OBJECTIVE: General: Intubated CV: S1, S2, RRR Respiratory: CLTA B/L Abdomen: soft, (+) bowel sounds, midline abdominal scar Integumentary: multiple tattoos, no visible track ramsey on extremities or groin Vital Signs Period Temp Pulse Resp BP Sys/[place] Pulse Ox Last 24 Hr 97.1 F-97.9 F 55-94 12-25 97-198/65-102 86-100 Laboratory Results - last 24 hr 06/29/19 06/29/19 06/29/19 22:15 22:15 22:15 WBC 13.6 H RBC 4.79 Hgb 15.2 Hct 45.9 D MCV 95.7 MCH 31.6 MCHC 33.0 RDW 13.9 Plt Count 269 MPV 9.0 Absolute Neuts (auto) 7.8 Neutrophils % 57.3 Lymphocytes % 34.7 Monocytes % 5.9 Eosinophils % 1.0 Basophils % 1.1 Nucleated RBC % 0 PT with INR INR Anticoagulation Therapy Puncture Site ABG pH ABG pCO2 at Pt Temp ABG pO2 at Pt Temp ABG HCO3 ABG O2 Sat (Measured) ABG O2 Content ABG Base Excess Will Test Carboxyhemoglobin Methemoglobin O2 Delivery Device Oxygen Flow Rate Vent Mode Vent Rate Mechanical Rate PEEP Pressure Support Vent Sodium 141 Potassium 4.6 Chloride 105 Carbon Dioxide 30 Anion Gap 6 L BUN 13.8 Creatinine 1.1 Est GFR (CKD-EPI)AfAm 88.36 Est GFR (CKD-EPI)NonAf 76.24 POC Glucometer Random Glucose 155 H Calcium 9.2 Total Bilirubin 0.4 AST 37 ALT 26 Alkaline Phosphatase 83 Creatine Kinase Cancelled 224 Creatine Kinase Index 0.6 CK-MB (CK-2) 1.4 Troponin I Cancelled < 0.02 Total Protein 8.3 H Albumin 4.3 Triglycerides 465 H Cholesterol Cancelled 163 Total LDL Cholesterol 91 HDL Cholesterol 55 Urine Color Urine Appearance Urine pH Ur Specific [place] Urine Protein Urine Glucose (UA) Urine Ketones Urine Blood Urine Nitrite Urine Bilirubin Urine Urobilinogen Ur Leukocyte Esterase Opiates Screen Methadone Screen Barbiturate Screen Phencyclidine Screen Ur Amphetamines Screen MDMA (Ecstasy) Screen Benzodiazepines Screen Cocaine Screen U Marijuana (THC) Screen 08/15/19 08/15/19 08/15/19 22:15 22:20 22:20 WBC RBC Hgb Hct MCV MCH MCHC RDW Plt Count MPV Absolute Neuts (auto) Neutrophils % Lymphocytes % Monocytes % Eosinophils % Basophils % Nucleated RBC % PT with INR 10.40 INR 0.88 Anticoagulation Therapy Puncture Site ABG pH ABG pCO2 at Pt Temp ABG pO2 at Pt Temp ABG HCO3 ABG O2 Sat (Measured) ABG O2 Content ABG Base Excess Will Test Carboxyhemoglobin Methemoglobin O2 Delivery Device Oxygen Flow Rate Vent Mode Vent Rate Mechanical Rate PEEP Pressure Support Vent Sodium Potassium Chloride Carbon Dioxide Anion Gap BUN Creatinine Est GFR (CKD-EPI)AfAm Est GFR (CKD-EPI)NonAf POC Glucometer Random Glucose Calcium Total Bilirubin AST ALT Alkaline Phosphatase Creatine Kinase Creatine Kinase Index CK-MB (CK-2) Troponin I Total Protein Albumin Triglycerides Cholesterol Total LDL Cholesterol HDL Cholesterol Urine Color Yellow Urine Appearance Clear Urine pH 8.5 H D Ur Specific [place] 1.013 Urine Protein Negative Urine Glucose (UA) Negative Urine Ketones Negative Urine Blood Negative Urine Nitrite Negative Urine Bilirubin Negative Urine Urobilinogen 0.2 Ur Leukocyte Esterase Negative Opiates Screen Negative Methadone Screen Positive A* Barbiturate Screen Negative Phencyclidine Screen Negative Ur Amphetamines Screen Negative MDMA (Ecstasy) Screen Negative Benzodiazepines Screen Positive A* Cocaine Screen Negative U Marijuana (THC) Screen Negative 06/30/19 06/30/19 06/30/19 01:33 01:43 06:14 WBC RBC Hgb Hct MCV MCH MCHC RDW Plt Count MPV Absolute Neuts (auto) Neutrophils % Lymphocytes % Monocytes % Eosinophils % Basophils % Nucleated RBC % PT with INR INR Anticoagulation Therapy No Result Required. Puncture Site Right radial ABG pH 7.36 ABG pCO2 at Pt Temp 55.2 H ABG pO2 at Pt Temp 102 ABG HCO3 30.1 H ABG O2 Sat (Measured) 97.6 ABG O2 Content 18.8 ABG Base Excess 3.7 H Will Test Positive Carboxyhemoglobin 1.9 Methemoglobin 0.4 O2 Delivery Device Vent Oxygen Flow Rate 28% Vent Mode A/c Vent Rate 14 Mechanical Rate No Result Required. PEEP 5.0 Pressure Support Vent No Result Required. Sodium Potassium Chloride Carbon Dioxide Anion Gap BUN Creatinine Est GFR (CKD-EPI)AfAm Est GFR (CKD-EPI)NonAf POC Glucometer 136 95 Random Glucose Calcium Total Bilirubin AST ALT Alkaline Phosphatase Creatine Kinase Creatine Kinase Index CK-MB (CK-2) Troponin I Total Protein Albumin Triglycerides Cholesterol Total LDL Cholesterol HDL Cholesterol Urine Color Urine Appearance Urine pH Ur Specific [place] Urine Protein Urine Glucose (UA) Urine Ketones Urine Blood Urine Nitrite Urine Bilirubin Urine Urobilinogen Ur Leukocyte Esterase Opiates Screen Methadone Screen Barbiturate Screen Phencyclidine Screen Ur Amphetamines Screen MDMA (Ecstasy) Screen Benzodiazepines Screen Cocaine Screen U Marijuana (THC) Screen Active Medications Generic Name Dose Route Start Last Admin Trade Name [place] PRN Reason Stop Dose Admin Chlorhexidine Gluconate 1 applic 06/30/19 22:00 Hibiclens For Decolonization - TP HS VINCENT Enoxaparin Sodium 40 mg 06/30/19 10:00 Lovenox - SQ DAILY VINCENT Sodium Chloride 1,000 mls @ 42 mls/hr 06/29/19 21:45 06/29/19 22:53 Normal Saline - IV 42 mls/hr ASDIR VINCENT Administration Propofol 1,000,000 mcg in 100 mls @ 10.886 mls/hr 06/29/19 22:40 06/30/19 05: 14 Diprivan - IVPB 20 mcg/kg/min TITR VINCENT 10.886 mls/hr Administration Protocol 20 MCG/KG/MIN Fentanyl 500 mcg/ Dextrose 100 mls @ 10 mls/hr 06/29/19 23:30 06/29/19 23:38 IVPB 50 mcg/hr TITR VINCENT 10 mls/hr Administration 50 MCG/HR Folic Acid 1 mg/ Thiamine HCl 1,000 mls @ 125 mls/hr 06/30/19 01:42 06/30/19 04:30 100 mg/ Multivitamins/Minerals IVPB 06/30/19 09:41 125 mls/hr 10 ml/ Sodium Chloride ONCE ONE Administration Insulin Aspart 0 vial 06/30/19 01:00 06/30/19 06:15 Novolog Vial Sliding Scale - SQ Not Given Q6H [facility] Protocol Mupirocin 1 applic 06/30/19 10:00 Bactroban Ointment (For Decolonization) - NS 07/05/19 09:59 BID VINCENT Thiamine HCl 200 mg 06/30/19 10:00 Vitamin B1 Injection - IVPB DAILY [facility] ASSESSMENT/PLAN: Mr. Yovani Santana is a 53 y/o male with a PMHx of HLD, HTN, CVA, NIDDM and Polysubstance (cocaine, heroin, benzodiazepine abuse) who presented to our ED after EMS witnessed mental status changes at home from conversational to lethargic and not following commands. Patient intubated for airway protection. #Altered Mental Status #Hypertension #Polysubstance Abuse #Diabetes Mellitus #Hyperlipidemia NEUROLOGICAL # AMS - likely 2/2 to toxic benzo overdose given patient's UTox (Benzo/Methadone) and negative Head CT/Brain CTA, Narcan administration with little response, TSH wnL, HbA1c wnL -Repeat Neuro exam s/p sedation d/c; - Neuro following, requests repeat CT in 24 hours, EEG, Neuro checks CARDIOVASCULAR #HTN - Initial solo reading of elevated BP (198/102) - Patient otherwise generally normotensive - NSR on EKG; ZEESHAN w/EF 60-65% in 12/2018 - Hold home anti-hypertensive medication PULMONARY - Intubated, sedated (Propofol/Fentanyl) - Negative cuff leak test today (06/30/2019) - D/C sedation and trial extubation today (06/30/2019) - Monitor CXR - ? L lower lobe developing infiltrate ENDOCRINE # NIDDM -diabetes mellitus: unclear what the patient's home medication list at present -will start insulin sliding scale and BGMs q6h while intubated -check A1C in the morning GASTROINTESTINAL -no acute abnormalities RENAL -no acute abnormalities FEN - Continue gentle hydration - Monitor and replete lytes - Advance diet as tolerated PROPHYLAXIS Lovenox (40 mg SQ QD) DISPOSITION Patient stable for transfer to [facility]/Surg [facility]/// [facility] 28 Visit type - Emergency Visit Emergency Visit: Yes ED Registration Date: 06/30/19 Care time: The patient presented to the Emergency Department on the above date and was hospitalized for further evaluation of their emergent condition. - New Patient This patient is new to me today: Yes Date on this admission: 06/30/19 - Critical Care Critical Care patient: No ATTENDING PHYSICIAN STATEMENT I saw and evaluated the patient. I reviewed the resident's note and discussed the case with the resident. I agree with the resident's findings and plan as documented. SUBJECTIVE: OBJECTIVE: ASSESSMENT AND PLAN:
[2019-06-30 07:34] LABS: BASO % 0.6 % (0-2.0); EOS % 0.9 % (0-4.5); HEMATOCRIT 41.7 % (35.4-49); HEMOGLOBIN 13.7 GM/dL (11.7-16.9); LYMPH % 29.2 % (8-40); MCH 31.4 pg (25.7-33.7); MCHC 32.9 g/dl (32.0-35.9); MEAN CELL VOLUME 95.5 fl (80-96); MEAN PLT VOLUME 8.6 fl (7.5-11.1); MONO % 6.4 % (3.8-10.2); NEUT % 62.9 % (42.8-82.8); PLATELET COUNT 240 K/MM3 (134-434); RBC 4.37 M/mm3 (4.00-5.60); RDW 14.1 % (11.9-15.9); WHITE BLOOD COUNT 11.9 K/mm3 (4.0-10.0)
[2019-06-30 08:03] LABS: ALBUMIN 3.6 g/dl (3.4-5.0); BILIRUBIN,TOTAL 0.3 mg/dL (0.2-1); BLOOD UREA NITROGEN 15.2 mg/dL (7-18); CREATININE 0.9 mg/dL (0.55-1.3); MAGNESIUM 2.6 mg/dL (1.8-2.4); PHOSPHOROUS 4.2 mg/dL (2.5-4.9); POTASSIUM 4.3 mmol/L (3.5-5.1); TOT PROT 6.6 g/dl (6.4-8.2)
--- NOTE | 2019-06-30 09:15 | CON.NEURO ---
Consult Consult Specialty:: Wing Referred by:: ER - History of Present Illness History of Present Illness: 53-year-old right-handed man with multiple medical problem on methadone Xanax diabetes presented to the hospital yesterday with acute episode of confusion not being himself found on the floor boyfriend. No report of any seizure-like activity patient was noted with a gaze deviation with hemodynamically unstable with a high per pressure patient was stabilized in the emergency room patient was intubated in the emergency room due to fear of aspiration. Patient was admitted to the medical ICU patient was seen this morning in the medical ICU CAT scan of the head was reported as negative CT angiogram was done in the emergency room since admission to the hospital patient has been on fentanyl. Patient received Narcan with no relief. No report of any seizure activity in the medical ICU. Patient is now hemodynamically stable no fever. No family history at the bedside most of the history was obtained from the chart. - History Source History Provided By: Medical Record Limitations to Obtaining History: Clinical Condition - Past Medical History COMIC ILLUSTRATOR: Yes: CVA Cardio/Vascular: Yes: HTN, Hyperlipdemia Endocrine: Yes: Diabetes Mellitus - Alcohol/Substance Use Hx Alcohol Use: Yes (unknown) - Smoking History Smoking history: Unknown if ever smoked Have you smoked in the past 12 months: No Aproximately how many cigarettes per day: 30 - Social History Usual Living Arrangement: Alone History of Recent Travel: No Home Medications - Allergies Allergies/Adverse Reactions: Allergies Allergy/AdvReac Type Severity Reaction Status Date / Time No Known Drug Allergies Allergy Verified 06/29/19 22:07 coconut Allergy Severe Hives Uncoded 06/29/19 22:07 seafood Allergy Severe Hives Uncoded 06/29/19 22:07 - Home Medications Home Medications: Ambulatory Orders Unobtainable 06/29/19 Family Disease History - Family Disease History Family Disease History: Diabetes: Mother (asthma,HTN), Heart Disease: Mother, Respiratory: Mother Physical Exam-Neuro Vital Signs: Vital Signs Temperature 97.1 F L 06/30/19 08:00 Pulse Rate 54 L 06/30/19 08:20 Respiratory Rate 14 06/30/19 09:00 Blood Pressure 105/67 06/30/19 08:00 O2 Sat by Pulse Oximetry (%) 100 06/30/19 09:00 Labs: CBC, BMP 06/30/19 06:50 08/16/19 06:50 INR, PTT INR 0.88 (0.83-1.09) 06/29/19 22:15 - Neuro Exam Level Of Consciousness: Yes: Obtunded (patient is on sedation no spontaneous movement positive bilateral sluggishly reactive pupils positive doll's eyes positive weak gag no spontaneous movement no seizure-like activity increased tone all over) Imaging - Results Cat Scan: Image Reviewed Problem List - Problems (1) Drug-induced seizure Assessment/Plan: overdose probably medication induced seizure Toxic metabolic encephalopathy Cannot rule out CVA on clinical exam 1. Neuro checks every 1 hour. 2. Portable EEG. 3. Tight blood pressure control. 4. Seizure precautions. 5. Repeat CAT scan of the head in 24 hours. 6. Taper sedation. 7. Follow-up with the ICU attending Code(s): R56.9 - UNSPECIFIED CONVULSIONS
[2019-06-30] MEDS ORDERED: fentaNYL CITRATE 250 MCG/5 ML VIAL ONE (09:25)
[2019-06-30] MEDS ORDERED: MUPIROCIN 2% TOPICAL OINTMENT FOR DECOLONIZATION NS SCH (10:00)
[2019-06-30] MEDS: THIAMINE HCL 200 MG/2 ML VIAL IVPB SCH (10:25)
[2019-06-30] MEDS: ENOXAPARIN NA (PORCINE) 40 MG/0.4 ML DISP.SYRIN SQ SCH (10:26)
[2019-06-30] MEDS: MUPIROCIN 2% TOPICAL OINTMENT FOR DECOLONIZATION NS SCH ×2 (10:33→21:58)
--- NOTE | 2019-06-30 11:38 | EKG ---
Test Reason : Blood Pressure : / mmHG Vent. Rate : 062 BPM Atrial Rate : 062 BPM P-R Int : 142 ms QRS Dur : 074 ms QT Int : 464 ms P-R-T Axes : 035 044 030 degrees QTc Int : 470 ms NORMAL SINUS RHYTHM NORMAL ECG WHEN COMPARED WITH ECG OF 07-JAN-2019 23:56, NO SIGNIFICANT CHANGE WAS FOUND Confirmed by MARINA MURILLO MD ([id number]) on 06/30/2019 11:38:08 AM Referred By: Confirmed By:MARINA MURILLO MD
--- NOTE | 2019-06-30 11:38 | PN ---
Teaching Attending Note Name of Resident: Jaquelin Rose ATTENDING PHYSICIAN STATEMENT I saw and evaluated the patient. I reviewed the resident's note and discussed the case with the resident. I agree with the resident's findings and plan as documented. SUBJECTIVE: Patient seen and examined in the ICU. Intubated and sedated. AC Mode f vent. No acute events overnight. Intake & Output 06/27/19 06/28/19 06/29/19 06/30/19 23:59 23:59 23:59 23:59 Intake Total 358 Output Total 700 900 Balance -700 -542 Weight 200 lb 190 lb 9.6 oz Last Vital Signs Temp Pulse Resp BP Pulse Ox 97.1 F L 53 L 14 149/82 100 06/30/19 08:00 06/30/19 10:00 06/30/19 10:00 06/30/19 10:00 06/30/19 09:00 Active Medications Chlorhexidine Gluconate (Hibiclens For Decolonization -) 1 applic TP HS [facility] Enoxaparin Sodium (Lovenox -) 40 mg SQ DAILY [facility] Last Admin: 06/30/19 10:26 Dose: 40 mg Sodium Chloride (Normal Saline -) 1,000 mls @ 42 mls/hr IV [facility]IR [facility] Last Admin: 06/29/19 22:53 Dose: 42 mls/hr Propofol (Diprivan -) 1,000,000 mcg in 100 mls @ 10.886 mls/hr IVPB TITR [facility]; Protocol Last Admin: 06/30/19 05:14 Dose: 20 mcg/kg/min, 10.886 mls/hr Fentanyl 500 mcg/ Dextrose 100 mls @ 10 mls/hr IVPB TITR [facility] Last Admin: 06/29/19 23:38 Dose: 50 mcg/hr, 10 mls/hr Insulin Aspart (Novolog Vial Sliding Scale -) 0 vial SQ Q6H [facility]; Protocol Last Admin: 06/30/19 06:15 Dose: Not Given Mupirocin (Bactroban Ointment (For Decolonization) -) 1 applic NS BID [facility] Stop: 07/05/19 09:59 Last Admin: 06/30/19 10:33 Dose: 1 applic Thiamine HCl (Vitamin B1 Injection -) 200 mg IVPB DAILY [facility] Last Admin: 06/30/19 10:25 Dose: 200 mg GENERAL: intubated/sedated EYES: Pupils equa,l and reactive ENT: Swelling of the left upper lip with dried blood LUNGS: Vented, clear, no wheezes HEART: RRR, no murmurs ABDOMEN: Soft, well-healed midline, vertical, surgical scar noted on abdomen EXTREMITIES: no edema. NEUROLOGICAL: Sedated SKIN: No track ramsey or rashes noted, tattoos Laboratory Results - last 24 hr 06/29/19 06/29/19 06/29/19 22:15 22:15 22:15 WBC 13.6 H RBC 4.79 Hgb 15.2 Hct 45.9 D MCV 95.7 MCH 31.6 MCHC 33.0 RDW 13.9 Plt Count 269 MPV 9.0 Absolute Neuts (auto) 7.8 Neutrophils % 57.3 Lymphocytes % 34.7 Monocytes % 5.9 Eosinophils % 1.0 Basophils % 1.1 Nucleated RBC % 0 PT with INR INR Sodium 141 Potassium 4.6 Chloride 105 Carbon Dioxide 30 Anion Gap 6 L BUN 13.8 Creatinine 1.1 Est GFR (CKD-EPI)AfAm 88.36 Est GFR (CKD-EPI)NonAf 76.24 Random Glucose 155 H Calcium 9.2 Total Bilirubin 0.4 AST 37 ALT 26 Alkaline Phosphatase 83 Creatine Kinase Cancelled 224 Creatine Kinase Index 0.6 CK-MB (CK-2) 1.4 Troponin I Cancelled < 0.02 Total Protein 8.3 H Albumin 4.3 Triglycerides 465 H Cholesterol Cancelled 163 Total LDL Cholesterol 91 HDL Cholesterol 55 Urine Color Urine Appearance Urine pH Ur Specific [place] Urine Protein Urine Glucose (UA) Urine Ketones Urine Blood Urine Nitrite Urine Bilirubin Urine Urobilinogen Ur Leukocyte Esterase Opiates Screen Methadone Screen Barbiturate Screen Phencyclidine Screen Ur Amphetamines Screen MDMA (Ecstasy) Screen Benzodiazepines Screen Cocaine Screen U Marijuana (THC) Screen 06/29/19 06/29/19 06/29/19 22:15 22:20 22:20 WBC RBC Hgb Hct MCV MCH MCHC RDW Plt Count MPV Absolute Neuts (auto) Neutrophils % Lymphocytes % Monocytes % Eosinophils % Basophils % Nucleated RBC % PT with INR 10.40 INR 0.88 Sodium Potassium Chloride Carbon Dioxide Anion Gap BUN Creatinine Est GFR (CKD-EPI)AfAm Est GFR (CKD-EPI)NonAf Random Glucose Calcium Total Bilirubin AST ALT Alkaline Phosphatase Creatine Kinase Creatine Kinase Index CK-MB (CK-2) Troponin I Total Protein Albumin Triglycerides Cholesterol Total LDL Cholesterol HDL Cholesterol Urine Color Yellow Urine Appearance Clear Urine pH 8.5 H D Ur Specific [place] 1.013 Urine Protein Negative Urine Glucose (UA) Negative Urine Ketones Negative Urine Blood Negative Urine Nitrite Negative Urine Bilirubin Negative Urine Urobilinogen 0.2 Ur Leukocyte Esterase Negative Opiates Screen Negative Methadone Screen Positive A* Barbiturate Screen Negative Phencyclidine Screen Negative Ur Amphetamines Screen Negative MDMA (Ecstasy) Screen Negative Benzodiazepines Screen Positive A* Cocaine Screen Negative U Marijuana (THC) Screen Negative Active Medications Generic Name Dose Route Start Last Admin Trade Name Freq PRN Reason Stop Dose Admin Sodium Chloride 1,000 mls @ 42 mls/hr 06/29/19 21:45 06/29/19 22:53 Normal Saline - IV 42 mls/hr [facility] Administration Propofol 1,000,000 mcg in 100 mls @ 10.886 mls/hr 06/29/19 22:40 06/29/19 22: 18 Diprivan - IVPB 20 mcg/kg/min TITR [facility] 10.886 mls/hr Administration Protocol 20 MCG/KG/MIN Fentanyl 500 mcg/ Dextrose 100 mls @ 10 mls/hr 06/29/19 23:30 06/29/19 23:38 IVPB 50 mcg/hr TITR [facility] 10 mls/hr Administration 50 MCG/HR ASSESSMENT/PLAN: Acute Respiratory Failure Polysubstance abuse (?) CVA Altered Mental Status Hypertension Diabetes Mellitus Hyperlipidemia Sedation vacation Wean trials once awake VTE prophylaxis Monitor for withdrawal symptoms Check leak test prior to extubation Glycemic control Requires ICU monitoring Dr Smith Critical care time spent in reviewing chart, evaluating patient and formulating plan - 36 minutes.
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
--- NOTE | 2019-06-30 19:10 | PN ---
<True Cunningham - Last Filed: 06/30/19 19:07> Teaching Attending Note Name of Resident: Clinton Davies ATTENDING PHYSICIAN STATEMENT I saw and evaluated the patient. I reviewed the resident's note and discussed the case with the resident. I agree with the resident's findings and plan as documented. SUBJECTIVE: Awake s/p extubation. Mildly disoriented. OBJECTIVE: Afebrile, Hemodynamically Stable. Last Vital Signs Temp Pulse Resp BP Pulse Ox 97.9 F 64 18 139/71 100 06/30/19 12:00 06/30/19 18:00 06/30/19 18:00 06/30/19 18:00 06/30/19 15:43 HEENT - Atramatic. L sided facial droop. Heart- S1, S2, RRR Lungs - clear to auscultation Abdomen - Soft, non-tender. Bowel Sounds normal. Extremities - no edema, no calf tenderness. Neuro - L facial droop. Tone/Power normal all 4 extremities. Laboratory Results - last 24 hr 06/29/19 06/29/19 06/29/19 22:15 22:15 22:15 WBC 13.6 H RBC 4.79 Hgb 15.2 Hct 45.9 D MCV 95.7 MCH 31.6 MCHC 33.0 RDW 13.9 Plt Count 269 MPV 9.0 Absolute Neuts (auto) 7.8 Neutrophils % 57.3 Lymphocytes % 34.7 Monocytes % 5.9 Eosinophils % 1.0 Basophils % 1.1 Nucleated RBC % 0 PT with INR INR Anticoagulation Therapy Puncture Site ABG pH ABG pCO2 at Pt Temp ABG pO2 at Pt Temp ABG HCO3 ABG O2 Sat (Measured) ABG O2 Content ABG Base Excess Will Test Carboxyhemoglobin Methemoglobin O2 Delivery Device Oxygen Flow Rate Vent Mode Vent Rate Mechanical Rate PEEP Pressure Support Vent Sodium 141 Potassium 4.6 Chloride 105 Carbon Dioxide 30 Anion Gap 6 L BUN 13.8 Creatinine 1.1 Est GFR (CKD-EPI)AfAm 88.36 Est GFR (CKD-EPI)NonAf 76.24 POC Glucometer Random Glucose 155 H Hemoglobin A1c % Calcium 9.2 Phosphorus Magnesium Total Bilirubin 0.4 AST 37 ALT 26 Alkaline Phosphatase 83 Creatine Kinase Cancelled 224 Creatine Kinase Index 0.6 CK-MB (CK-2) 1.4 Troponin I Cancelled < 0.02 Total Protein 8.3 H Albumin 4.3 Triglycerides 465 H Cholesterol Cancelled 163 Total LDL Cholesterol 91 HDL Cholesterol 55 TSH Urine Color Urine Appearance Urine pH Ur Specific [place] Urine Protein Urine Glucose (UA) Urine Ketones Urine Blood Urine Nitrite Urine Bilirubin Urine Urobilinogen Ur Leukocyte Esterase Opiates Screen Methadone Screen Barbiturate Screen Phencyclidine Screen Ur Amphetamines Screen MDMA (Ecstasy) Screen Benzodiazepines Screen Cocaine Screen U Marijuana (THC) Screen Blood Type Antibody Screen 06/29/19 06/29/19 06/29/19 22:15 22:20 22:20 WBC RBC Hgb Hct MCV MCH MCHC RDW Plt Count MPV Absolute Neuts (auto) Neutrophils % Lymphocytes % Monocytes % Eosinophils % Basophils % Nucleated RBC % PT with INR 10.40 INR 0.88 Anticoagulation Therapy Puncture Site ABG pH ABG pCO2 at Pt Temp ABG pO2 at Pt Temp ABG HCO3 ABG O2 Sat (Measured) ABG O2 Content ABG Base Excess Will Test Carboxyhemoglobin Methemoglobin O2 Delivery Device Oxygen Flow Rate Vent Mode Vent Rate Mechanical Rate PEEP Pressure Support Vent Sodium Potassium Chloride Carbon Dioxide Anion Gap BUN Creatinine Est GFR (CKD-EPI)AfAm Est GFR (CKD-EPI)NonAf POC Glucometer Random Glucose Hemoglobin A1c % Calcium Phosphorus Magnesium Total Bilirubin AST ALT Alkaline Phosphatase Creatine Kinase Creatine Kinase Index CK-MB (CK-2) Troponin I Total Protein Albumin Triglycerides Cholesterol Total LDL Cholesterol HDL Cholesterol TSH Urine Color Yellow Urine Appearance Clear Urine pH 8.5 H D Ur Specific [place] 1.013 Urine Protein Negative Urine Glucose (UA) Negative Urine Ketones Negative Urine Blood Negative Urine Nitrite Negative Urine Bilirubin Negative Urine Urobilinogen 0.2 Ur Leukocyte Esterase Negative Opiates Screen Negative Methadone Screen Positive A* Barbiturate Screen Negative Phencyclidine Screen Negative Ur Amphetamines Screen Negative MDMA (Ecstasy) Screen Negative Benzodiazepines Screen Positive A* Cocaine Screen Negative U Marijuana (THC) Screen Negative Blood Type Antibody Screen 06/30/19 06/30/19 06/30/19 01:33 01:43 06:14 WBC RBC Hgb Hct MCV MCH MCHC RDW Plt Count MPV Absolute Neuts (auto) Neutrophils % Lymphocytes % Monocytes % Eosinophils % Basophils % Nucleated RBC % PT with INR INR Anticoagulation Therapy No Result Required. Puncture Site Right radial ABG pH 7.36 ABG pCO2 at Pt Temp 55.2 H ABG pO2 at Pt Temp 102 ABG HCO3 30.1 H ABG O2 Sat (Measured) 97.6 ABG O2 Content 18.8 ABG Base Excess 3.7 H Will Test Positive Carboxyhemoglobin 1.9 Methemoglobin 0.4 O2 Delivery Device Vent Oxygen Flow Rate 28% Vent Mode A/c Vent Rate 14 Mechanical Rate No Result Required. PEEP 5.0 Pressure Support Vent No Result Required. Sodium Potassium Chloride Carbon Dioxide Anion Gap BUN Creatinine Est GFR (CKD-EPI)AfAm Est GFR (CKD-EPI)NonAf POC Glucometer 136 95 Random Glucose Hemoglobin A1c % Calcium Phosphorus Magnesium Total Bilirubin AST ALT Alkaline Phosphatase Creatine Kinase Creatine Kinase Index CK-MB (CK-2) Troponin I Total Protein Albumin Triglycerides Cholesterol Total LDL Cholesterol HDL Cholesterol TSH Urine Color Urine Appearance Urine pH Ur Specific [place] Urine Protein Urine Glucose (UA) Urine Ketones Urine Blood Urine Nitrite Urine Bilirubin Urine Urobilinogen Ur Leukocyte Esterase Opiates Screen Methadone Screen Barbiturate Screen Phencyclidine Screen Ur Amphetamines Screen MDMA (Ecstasy) Screen Benzodiazepines Screen Cocaine Screen U Marijuana (THC) Screen Blood Type Antibody Screen 06/30/19 06/30/19 06/30/19 06:50 06:50 06:50 WBC RBC Hgb Hct MCV MCH MCHC RDW Plt Count MPV Absolute Neuts (auto) Neutrophils % Lymphocytes % Monocytes % Eosinophils % Basophils % Nucleated RBC % PT with INR INR Anticoagulation Therapy Puncture Site ABG pH ABG pCO2 at Pt Temp ABG pO2 at Pt Temp ABG HCO3 ABG O2 Sat (Measured) ABG O2 Content ABG Base Excess Will Test Carboxyhemoglobin Methemoglobin O2 Delivery Device Oxygen Flow Rate Vent Mode Vent Rate Mechanical Rate PEEP Pressure Support Vent Sodium 144 Potassium 4.3 Chloride 108 H Carbon Dioxide 31 Anion Gap 5 L BUN 15.2 Creatinine 0.9 Est GFR (CKD-EPI)AfAm 112.62 Est GFR (CKD-EPI)NonAf 97.17 POC Glucometer Random Glucose 90 Hemoglobin A1c % 5.9 Calcium 9.0 Phosphorus 4.2 Magnesium 2.6 H Total Bilirubin 0.3 AST 19 ALT 20 Alkaline Phosphatase 72 Creatine Kinase Creatine Kinase Index CK-MB (CK-2) Troponin I Total Protein 6.6 Albumin 3.6 Triglycerides Cholesterol Total LDL Cholesterol HDL Cholesterol TSH 1.45 Urine Color Urine Appearance Urine pH Ur Specific [place] Urine Protein Urine Glucose (UA) Urine Ketones Urine Blood Urine Nitrite Urine Bilirubin Urine Urobilinogen Ur Leukocyte Esterase Opiates Screen Methadone Screen Barbiturate Screen Phencyclidine Screen Ur Amphetamines Screen MDMA (Ecstasy) Screen Benzodiazepines Screen Cocaine Screen U Marijuana (THC) Screen Blood Type O POSITIVE Antibody Screen Negative 06/30/19 06/30/19 06/30/19 06:50 12:32 17:38 WBC 11.9 H RBC 4.37 Hgb 13.7 Hct 41.7 MCV 95.5 MCH 31.4 MCHC 32.9 RDW 14.1 Plt Count 240 MPV 8.6 Absolute Neuts (auto) 7.5 Neutrophils % 62.9 Lymphocytes % 29.2 Monocytes % 6.4 Eosinophils % 0.9 Basophils % 0.6 Nucleated RBC % 0 PT with INR INR Anticoagulation Therapy Puncture Site ABG pH ABG pCO2 at Pt Temp ABG pO2 at Pt Temp ABG HCO3 ABG O2 Sat (Measured) ABG O2 Content ABG Base Excess Will Test Carboxyhemoglobin Methemoglobin O2 Delivery Device Oxygen Flow Rate Vent Mode Vent Rate Mechanical Rate PEEP Pressure Support Vent Sodium Potassium Chloride Carbon Dioxide Anion Gap BUN Creatinine Est GFR (CKD-EPI)AfAm Est GFR (CKD-EPI)NonAf POC Glucometer 80 74 Random Glucose Hemoglobin A1c % Calcium Phosphorus Magnesium Total Bilirubin AST ALT Alkaline Phosphatase Creatine Kinase Creatine Kinase Index CK-MB (CK-2) Troponin I Total Protein Albumin Triglycerides Cholesterol Total LDL Cholesterol HDL Cholesterol TSH Urine Color Urine Appearance Urine pH Ur Specific [place] Urine Protein Urine Glucose (UA) Urine Ketones Urine Blood Urine Nitrite Urine Bilirubin Urine Urobilinogen Ur Leukocyte Esterase Opiates Screen Methadone Screen Barbiturate Screen Phencyclidine Screen Ur Amphetamines Screen MDMA (Ecstasy) Screen Benzodiazepines Screen Cocaine Screen U Marijuana (THC) Screen Blood Type Antibody Screen Current Medications Generic Name Dose Route Start Last Admin Trade Name Freq PRN Reason Stop Dose Admin Aspirin 81 mg 07/01/19 10:00 Ecotrin - PO DAILY [facility] Chlorhexidine Gluconate 1 applic 06/30/19 22:00 Hibiclens For Decolonization - TP HS [facility] Enoxaparin Sodium 40 mg 06/30/19 10:00 06/30/19 10:26 Lovenox - SQ 40 mg DAILY [facility] Administration Sodium Chloride 1,000 mls @ 42 mls/hr 06/29/19 21:45 06/29/19 22:53 Normal Saline - IV 42 mls/hr ASDIR [facility] Administration Insulin Aspart 0 vial 06/30/19 01:00 06/30/19 12:56 Novolog Vial Sliding Scale - SQ Not Given Q6H [facility] Protocol Lisinopril 5 mg 07/01/19 10:00 Prinivil PO DAILY [facility] Mupirocin 1 applic 06/30/19 10:00 06/30/19 10:33 Bactroban Ointment (For Decolonization) - NS 07/05/19 09:59 1 applic BID [facility] Administration Quetiapine Fumarate 100 mg 06/30/19 22:00 Seroquel - PO HS [facility] Tamsulosin HCl 0.4 mg 07/01/19 08:30 Flomax - PO DAILY@0830 [facility] Thiamine HCl 200 mg 06/30/19 10:00 06/30/19 10:25 Vitamin B1 Injection - IVPB 200 mg DAILY [facility] Administration Home Medications Medication Instructions Recorded Alprazolam 2 mg PO BID 06/30/19 Mirtazapine 30 mg PO DAILY 06/30/19 Quetiapine Fumarate [Seroquel] 100 mg PO DAILY 06/30/19 Tamsulosin HCl 0.4 mg PO DAILY 06/30/19 Zolpidem Tartrate 10 mg PO DAILY 06/30/19 ASSESSMENT AND PLAN: <Clinton Davies - Last Filed: 06/30/19 19:27> Teaching Attending Note ATTENDING PHYSICIAN STATEMENT I saw and evaluated the patient. I reviewed the resident's note and discussed the case with the resident. I agree with the resident's findings and plan as documented. SUBJECTIVE: OBJECTIVE: ASSESSMENT AND PLAN:
[2019-06-30] MEDS: SODIUM CHLORIDE 1,000 ML IV SCH (21:58)
[2019-06-30] MEDS: QUEtiapine FUMARATE 100 MG TABLET (FP) PO SCH (21:59)
[2019-06-30] MEDS: CHLORHEXIDINE GLUCONATE 4% CLEANSER FOR DECOLONIZATION TP SCH (21:59)
[2019-06-30] MEDS ORDERED: CHLORHEXIDINE GLUCONATE 4% CLEANSER FOR DECOLONIZATION TP SCH (22:00)
[2019-07-01] MEDS: INSULIN SLIDING SCALE (NOVOLOG) 1 VIAL SQ SCH ×5 (00:27→21:45)
[2019-07-01] MEDS ORDERED: LORazepam 2 MG/ML SDV VIAL IVPUSH ONE (04:22)
[2019-07-01 06:42] LABS: BASO % 0.6 % (0-2.0); EOS % 1.1 % (0-4.5); HEMATOCRIT 42.4 % (35.4-49); HEMOGLOBIN 13.8 GM/dL (11.7-16.9); LYMPH % 36.9 % (8-40); MCH 31.2 pg (25.7-33.7); MCHC 32.6 g/dl (32.0-35.9); MEAN CELL VOLUME 95.6 fl (80-96); MEAN PLT VOLUME 9.2 fl (7.5-11.1); NEUT % 56.4 % (42.8-82.8); PLATELET COUNT 228 K/MM3 (134-434); RBC 4.44 M/mm3 (4.00-5.60); RDW 13.8 % (11.9-15.9)
--- NOTE | 2019-07-01 07:00 | PN ---
Physical Exam: Update: -Patient son at bedside. Discussed patient's hospital course, and request to leave against medical advice. Counselled regarding the risks of leaving not limited to fall, loss of consciousness, seizure, stroke, injury to head or any part of body, permanent disability, . After discussion with patient and his son at bedside, patient in agreement to stay in hospital for continued medical management. ---- SUBJECTIVE: Patient seen and examined at bedside this morning. He is lethargic, oriented to person, and time. OBJECTIVE: Vital Signs Period Temp Pulse Resp BP Sys/[place] Pulse Ox Last 24 Hr 97.1 F-99.6 F 53-89 14-24 105-155/53-83 98-100 GENERAL: The patient is lethargic, oriented to person, time. In no acute distress. HEAD: Normocephalic. Swollen upper lip at left side. EYES: PERRL, extraocular movements intact, sclera anicteric, conjunctiva clear. Negative ptosis. ENT: Oropharynx clear without exudates, moist mucous membranes. NECK: Supple, negative stridor LUNGS: Breath sounds equal, clear to auscultation bilaterally, no wheezes, no crackles. No accessory muscle use. HEART: Regular rate and rhythm, S1, S2 without murmur, rub or gallop. ABDOMEN: Soft, nontender, nondistended, normoactive bowel sounds, no guarding, no rebound, no hepatosplenomegaly, no masses. EXTREMITIES: 2+ radial, dorsalis pedis pulses bilaterally, warm, well-perfused, no edema. NEUROLOGICAL: Left sided droop of upper lip and eyelid noted. Slurred speech. Ataxic gait. PSYCH: Confused, lethargic. SKIN: Warm, dry. Laboratory Results - last 24 hr 06/30/19 06/30/19 06/30/19 06:50 06:50 06:50 WBC RBC Hgb Hct MCV MCH MCHC RDW Plt Count MPV Absolute Neuts (auto) Neutrophils % Lymphocytes % Monocytes % Eosinophils % Basophils % Nucleated RBC % Sodium 144 Potassium 4.3 Chloride 108 H Carbon Dioxide 31 Anion Gap 5 L BUN 15.2 Creatinine 0.9 Est GFR (CKD-EPI)AfAm 112.62 Est GFR (CKD-EPI)NonAf 97.17 POC Glucometer Random Glucose 90 Hemoglobin A1c % 5.9 Calcium 9.0 Phosphorus 4.2 Magnesium 2.6 H Total Bilirubin 0.3 AST 19 ALT 20 Alkaline Phosphatase 72 Total Protein 6.6 Albumin 3.6 TSH 1.45 Blood Type O POSITIVE Antibody Screen Negative 06/30/19 06/30/19 06/30/19 06:50 12:32 17:38 WBC 11.9 H RBC 4.37 Hgb 13.7 Hct 41.7 MCV 95.5 MCH 31.4 MCHC 32.9 RDW 14.1 Plt Count 240 MPV 8.6 Absolute Neuts (auto) 7.5 Neutrophils % 62.9 Lymphocytes % 29.2 Monocytes % 6.4 Eosinophils % 0.9 Basophils % 0.6 Nucleated RBC % 0 Sodium Potassium Chloride Carbon Dioxide Anion Gap BUN Creatinine Est GFR (CKD-EPI)AfAm Est GFR (CKD-EPI)NonAf POC Glucometer 80 74 Random Glucose Hemoglobin A1c % Calcium Phosphorus Magnesium Total Bilirubin AST ALT Alkaline Phosphatase Total Protein Albumin TSH Blood Type Antibody Screen 06/30/19 07/01/19 07/01/19 21:55 00:26 05:25 WBC 12.0 H RBC 4.44 Hgb 13.8 Hct 42.4 MCV 95.6 MCH 31.2 MCHC 32.6 RDW 13.8 Plt Count 228 MPV 9.2 Absolute Neuts (auto) 6.8 Neutrophils % 56.4 Lymphocytes % 36.9 D Monocytes % 5.0 Eosinophils % 1.1 Basophils % 0.6 Nucleated RBC % 0 Sodium Potassium Chloride Carbon Dioxide Anion Gap BUN Creatinine Est GFR (CKD-EPI)AfAm Est GFR (CKD-EPI)NonAf POC Glucometer 84 81 Random Glucose Hemoglobin A1c % Calcium Phosphorus Magnesium Total Bilirubin AST ALT Alkaline Phosphatase Total Protein Albumin TSH Blood Type Antibody Screen 07/01/19 06:14 WBC RBC Hgb Hct MCV MCH MCHC RDW Plt Count MPV Absolute Neuts (auto) Neutrophils % Lymphocytes % Monocytes % Eosinophils % Basophils % Nucleated RBC % Sodium Potassium Chloride Carbon Dioxide Anion Gap BUN Creatinine Est GFR (CKD-EPI)AfAm Est GFR (CKD-EPI)NonAf POC Glucometer 70 Random Glucose Hemoglobin A1c % Calcium Phosphorus Magnesium Total Bilirubin AST ALT Alkaline Phosphatase Total Protein Albumin TSH Blood Type Antibody Screen Active Medications Generic Name Dose Route Start Last Admin Trade Name Freq PRN Reason Stop Dose Admin Aspirin 81 mg 07/01/19 10:00 Ecotrin - PO DAILY [facility] Chlorhexidine Gluconate 1 applic 06/30/19 22:00 08/16/19 21:59 Hibiclens For Decolonization - TP 1 applic HS [facility] Administration Enoxaparin Sodium 40 mg 06/30/19 10:00 06/30/19 10:26 Lovenox - SQ 40 mg DAILY [facility] Administration Sodium Chloride 1,000 mls @ 42 mls/hr 06/29/19 21:45 06/30/19 21:58 Normal Saline - IV Not Given ASDIR [facility] Insulin Aspart 0 vial 06/30/19 01:00 07/01/19 06:16 Novolog Vial Sliding Scale - SQ Not Given Q6H [facility] Protocol Lisinopril 5 mg 07/01/19 10:00 Prinivil PO DAILY [facility] Mupirocin 1 applic 06/30/19 10:00 06/30/19 21:58 Bactroban Ointment (For Decolonization) - NS 07/05/19 09:59 1 applic BID [facility] Administration Quetiapine Fumarate 100 mg 06/30/19 22:00 06/30/19 21:59 Seroquel - PO Not Given HS [facility] Tamsulosin HCl 0.4 mg 07/01/19 08:30 Flomax - PO DAILY@0830 [facility] Thiamine HCl 200 mg 06/30/19 10:00 06/30/19 10:25 Vitamin B1 Injection - IVPB 200 mg DAILY [facility] Administration ASSESSMENT/PLAN: Patient is 53 year old male with history of polysubstance abuse (benzodiazepines , on methadone), hypertension, hyperlipidemia, prior CVA admitted to ICU after acute respiratory failure, and metabolic encephalopathy after overdose. Neurologic -Repeat MRI limited due to patient refusing to cooperate for entirety of study. -Preliminary reading appears negative for acute stroke. Low clinical suspicion of CVA. -Seroquel 100mg PO HS reinstated -Monitor for withdrawal, signs of mental status change -Neurology recommendations (Dr. Dimas) appreciated. Reinstate Xanax 0.5mg PO BID -Methadone 20mg PO, will need to confirm dose -Psychiatry consult (Dr. Ley) -Seizure precautions -Fall precautions. Cardiac -Reinstate Lisinopril 5mg PO daily. Currently normotensive. -Cardiac monitoring while in ICU -Aspirin 81mg PO daily Pulmonary -Patient self-extubated yesterday. Negative stridor upon auscultation -Saturating well on room air. -Maintain oxygen saturation greater than 90% Gastrointestinal -Patient passed bedside swallow evaluation. -Initiate full liquid diet, with assistance. Monitor for any signs of aspiration. Endocrine -Insulin sliding scale ACHS -Fingerstick blood glucose monitoring ACHS FEN -No IV fluids indicated. -Follow CMP, replete as necessary -Full liquid diet. Prophylaxis -Lovenox 40mg subq daily Disposition: Patient is medically stable for transfer to medical surgical floor Visit type - Emergency Visit Emergency Visit: Yes ED Registration Date: 06/30/19 Care time: The patient presented to the Emergency Department on the above date and was hospitalized for further evaluation of their emergent condition. - New Patient This patient is new to me today: Yes Date on this admission: 07/02/19 - Critical Care Critical Care patient: Yes Total Critical Care Time (in minutes): 35 Critical Care Statement: The care of this patient involved high complexity decision making to prevent further life threatening deterioration of the patient 's condition and/or to evaluate & treat vital organ system(s) failure or risk of failure. ATTENDING PHYSICIAN STATEMENT I saw and evaluated the patient. I reviewed the resident's note and discussed the case with the resident. I agree with the resident's findings and plan as documented. SUBJECTIVE: OBJECTIVE: ASSESSMENT AND PLAN:
[2019-07-01 07:07] LABS: ALBUMIN 3.5 g/dl (3.4-5.0); BILIRUBIN,TOTAL 0.6 mg/dL (0.2-1); BLOOD UREA NITROGEN 10.5 mg/dL (7-18); CALCIUM 8.5 mg/dL (8.5-10.1); CREATININE 0.9 mg/dL (0.55-1.3); MAGNESIUM 2.2 mg/dL (1.8-2.4); PHOSPHOROUS 3.8 mg/dL (2.5-4.9); POTASSIUM 4.1 mmol/L (3.5-5.1); TOT PROT 6.6 g/dl (6.4-8.2)
[2019-07-01] MEDS: ASPIRIN COATED 81 MG TABLET.EC PO SCH (09:01)
[2019-07-01] MEDS: TAMSULOSIN HCL 0.4 MG CAP PO SCH (09:01)
[2019-07-01] MEDS: LISINOPRIL 5 MG TABLET (FP) PO SCH (09:01)
[2019-07-01] MEDS: ENOXAPARIN NA (PORCINE) 40 MG/0.4 ML DISP.SYRIN SQ SCH (09:01)
[2019-07-01] MEDS: THIAMINE HCL 200 MG/2 ML VIAL IVPB SCH (09:21)
[2019-07-01] MEDS: MUPIROCIN 2% TOPICAL OINTMENT FOR DECOLONIZATION NS SCH ×2 (09:30→21:44)
--- NOTE | 2019-07-01 09:38 | PN ---
Teaching Attending Note Name of Resident: Harry Mireles ATTENDING PHYSICIAN STATEMENT I saw and evaluated the patient. I reviewed the resident's note and discussed the case with the resident. I agree with the resident's findings and plan as documented. SUBJECTIVE: Patient seen and examined in the ICU. Extubated. Sleepy but easily arousable. NAD on NC O2. Intake & Output 06/28/19 06/29/19 06/30/19 07/01/19 23:59 23:59 23:59 23:59 Intake Total 1173 582 Output Total 700 1700 500 Balance -700 -527 82 Weight 200 lb 190 lb 9.6 oz 190 lb 9.6 oz Last Vital Signs Temp Pulse Resp BP Pulse Ox 98.8 F 65 16 143/79 98 07/01/19 06:00 07/01/19 06:00 07/01/19 06:00 07/01/19 06:00 06/30/19 23:31 Active Medications Aspirin (Ecotrin -) 81 mg PO DAILY [facility] Last Admin: 07/01/19 09:01 Dose: 81 mg Chlorhexidine Gluconate (Hibiclens For Decolonization -) 1 applic TP HS [facility] Last Admin: 06/30/19 21:59 Dose: 1 applic Enoxaparin Sodium (Lovenox -) 40 mg SQ DAILY [facility] Last Admin: 07/01/19 09:01 Dose: 40 mg Sodium Chloride (Normal Saline -) 1,000 mls @ 42 mls/hr IV [facility] Last Admin: 06/30/19 21:58 Dose: Not Given Insulin Aspart (Novolog Vial Sliding Scale -) 0 vial SQ Q6H [facility]; Protocol Last Admin: 07/01/19 06:16 Dose: Not Given Lisinopril (Prinivil) 5 mg PO DAILY [facility] Last Admin: 07/01/19 09:01 Dose: 5 mg Mupirocin (Bactroban Ointment (For Decolonization) -) 1 applic NS BID [facility] Stop: 07/05/19 09:59 Last Admin: 07/01/19 09:30 Dose: 1 applic Quetiapine Fumarate (Seroquel -) 100 mg PO HS [facility] Last Admin: 06/30/19 21:59 Dose: Not Given Tamsulosin HCl (Flomax -) 0.4 mg PO DAILY@0830 [facility] Last Admin: 07/01/19 09:01 Dose: 0.4 mg Thiamine HCl (Vitamin B1 Injection -) 200 mg IVPB DAILY [facility] Last Admin: 07/01/19 09:21 Dose: 200 mg GENERAL: Sleepy but easily arousable, NAD EYES: Pupils equal and reactive ENT: Less swelling of the left upper lip LUNGS: Clear, no wheezes HEART: RRR, no murmurs ABDOMEN: Soft, well-healed midline, vertical, surgical scar noted on abdomen EXTREMITIES: no edema. NEUROLOGICAL: Sleepy, exam is non-focal SKIN: No track ramsey or rashes noted, tattoos Laboratory Results - last 24 hr 06/30/19 06/30/19 06/30/19 06:50 12:32 17:38 WBC RBC Hgb Hct MCV MCH MCHC RDW Plt Count MPV Absolute Neuts (auto) Neutrophils % Lymphocytes % Monocytes % Eosinophils % Basophils % Nucleated RBC % Sodium Potassium Chloride Carbon Dioxide Anion Gap BUN Creatinine Est GFR (CKD-EPI)AfAm Est GFR (CKD-EPI)NonAf POC Glucometer 80 74 Random Glucose Calcium Phosphorus Magnesium Total Bilirubin AST ALT Alkaline Phosphatase Total Protein Albumin Blood Type O POSITIVE Antibody Screen Negative 06/30/19 07/01/19 07/01/19 21:55 00:26 05:25 WBC 12.0 H RBC 4.44 Hgb 13.8 Hct 42.4 MCV 95.6 MCH 31.2 MCHC 32.6 RDW 13.8 Plt Count 228 MPV 9.2 Absolute Neuts (auto) 6.8 Neutrophils % 56.4 Lymphocytes % 36.9 D Monocytes % 5.0 Eosinophils % 1.1 Basophils % 0.6 Nucleated RBC % 0 Sodium Potassium Chloride Carbon Dioxide Anion Gap BUN Creatinine Est GFR (CKD-EPI)AfAm Est GFR (CKD-EPI)NonAf POC Glucometer 84 81 Random Glucose Calcium Phosphorus Magnesium Total Bilirubin AST ALT Alkaline Phosphatase Total Protein Albumin Blood Type Antibody Screen 07/01/19 07/01/19 05:25 06:14 WBC RBC Hgb Hct MCV MCH MCHC RDW Plt Count MPV Absolute Neuts (auto) Neutrophils % Lymphocytes % Monocytes % Eosinophils % Basophils % Nucleated RBC % Sodium 144 Potassium 4.1 Chloride 108 H Carbon Dioxide 30 Anion Gap 6 L BUN 10.5 Creatinine 0.9 Est GFR (CKD-EPI)AfAm 112.62 Est GFR (CKD-EPI)NonAf 97.17 POC Glucometer 70 Random Glucose 67 L Calcium 8.5 Phosphorus 3.8 Magnesium 2.2 Total Bilirubin 0.6 AST 21 ALT 17 Alkaline Phosphatase 74 Total Protein 6.6 Albumin 3.5 Blood Type Antibody Screen ASSESSMENT/PLAN: Acute Respiratory Failure Polysubstance abuse Low clinical suspicion of CVA Altered Mental Status Hypertension Diabetes Mellitus Hyperlipidemia OOB to chair VTE prophylaxis Monitor for withdrawal symptoms Glycemic control O2 as needed Floor Dr Smith
--- NOTE | 2019-07-01 10:25 | PN ---
Progress Note, Physician History of Present Illness: events noted chart review Seen in the medical ICU Alert awake oriented follows normal command Extubated himself yesterday MRI with no acute pathology - Current Medication List Current Medications: Active Medications Aspirin (Ecotrin -) 81 mg PO DAILY [facility] Last Admin: 07/01/19 09:01 Dose: 81 mg Chlorhexidine Gluconate (Hibiclens For Decolonization -) 1 applic TP HS [facility] Last Admin: 06/30/19 21:59 Dose: 1 applic Enoxaparin Sodium (Lovenox -) 40 mg SQ DAILY [facility] Last Admin: 07/01/19 09:01 Dose: 40 mg Sodium Chloride (Normal Saline -) 1,000 mls @ 42 mls/hr IV ASDIR [facility] Last Admin: 06/30/19 21:58 Dose: Not Given Insulin Aspart (Novolog Vial Sliding Scale -) 0 vial SQ Q6H [facility]; Protocol Last Admin: 07/01/19 06:16 Dose: Not Given Lisinopril (Prinivil) 5 mg PO DAILY [facility] Last Admin: 07/01/19 09:01 Dose: 5 mg Mupirocin (Bactroban Ointment (For Decolonization) -) 1 applic NS BID [facility] Stop: 07/05/19 09:59 Last Admin: 07/01/19 09:30 Dose: 1 applic Quetiapine Fumarate (Seroquel -) 100 mg PO [facility] Last Admin: 06/30/19 21:59 Dose: Not Given Tamsulosin HCl (Flomax -) 0.4 mg PO DAILY@0830 [facility] Last Admin: 07/01/19 09:01 Dose: 0.4 mg Thiamine HCl (Vitamin B1 Injection -) 200 mg IVPB DAILY [facility] Last Admin: 07/01/19 09:21 Dose: 200 mg - Objective Vital Signs: Vital Signs Temperature 98.8 F 07/01/19 06:00 Pulse Rate 65 07/01/19 06:00 Respiratory Rate 16 07/01/19 06:00 Blood Pressure 143/79 07/01/19 06:00 O2 Sat by Pulse Oximetry (%) 98 06/30/19 23:31 Constitutional: Yes: Well Nourished Eyes: Yes: WNL Neurological: Yes: Alert, Oriented, Babinski negative, Paresthesia Labs: CBC, BMP 07/01/19 05:25 07/01/19 05:25 INR, PTT INR 0.88 (0.83-1.09) 06/29/19 22:15 Problem List - Problems (1) Drug-induced seizure Assessment/Plan: 1. Follow-up the results of the EEG. 2. Xanax 0.5 mg twice daily. 3. Seizure precautions. 4. Psych evaluation. 6. Neurologically okay to go to the floor if medically stable Code(s): R56.9 - UNSPECIFIED CONVULSIONS
[2019-07-01] MEDS: ALPRAZolam 0.25 MG TABLET PO PRN ×2 (12:20→21:26)
[2019-07-01] MEDS ORDERED: METHADONE HCL 10 MG TABLET PO ONE (13:00)
--- NOTE | 2019-07-01 14:08 | CON.PSY ---
Psychiatry Consult Chief Complaint: 53 Elio old male admitted to ICU and just came off intubation. {Patient apparantly wants to sign outv AMA. Meduical staff report that he needs few more days in the Hospital to stabilize his physicla condition. History Of Stroke. Symptoms: reports: Irritability, Anxiety - Previous Psychiatric Treatment Outpatient: Less than 6 mos ago Inpatient: None - Previous Substance Abuse Treatment Outpatient: None Inpatient: None - Reason for Previous Treatment Reason for Previous Treatment: Anxiety or Panic Disorder - Current Medications Current Medications: Active Medications Alprazolam (Xanax -) 0.5 mg PO BID PRN PRN Reason: ANXIETY Last Admin: 07/01/19 12:20 Dose: 0.5 mg Aspirin (Ecotrin -) 81 mg PO DAILY [facility] Last Admin: 07/01/19 09:01 Dose: 81 mg Chlorhexidine Gluconate (Hibiclens For Decolonization -) 1 applic TP HS [facility] Last Admin: 06/30/19 21:59 Dose: 1 applic Enoxaparin Sodium (Lovenox -) 40 mg SQ DAILY [facility] Last Admin: 07/01/19 09:01 Dose: 40 mg Sodium Chloride (Normal Saline -) 1,000 mls @ 42 mls/hr IV ASDIR [facility] Last Admin: 06/30/19 21:58 Dose: Not Given Insulin Aspart (Novolog Vial Sliding Scale -) 0 vial SQ Q6H [facility]; Protocol Last Admin: 07/01/19 12:20 Dose: Not Given Lisinopril (Prinivil) 5 mg PO DAILY [facility] Last Admin: 07/01/19 09:01 Dose: 5 mg Mupirocin (Bactroban Ointment (For Decolonization) -) 1 applic NS BID [facility] Stop: 07/05/19 09:59 Last Admin: 07/01/19 09:30 Dose: 1 applic Quetiapine Fumarate (Seroquel -) 100 mg PO HS [facility] Last Admin: 06/30/19 21:59 Dose: Not Given Tamsulosin HCl (Flomax -) 0.4 mg PO DAILY@0830 [facility] Last Admin: 07/01/19 09:01 Dose: 0.4 mg Thiamine HCl (Vitamin B1 Injection -) 200 mg IVPB DAILY [facility] Last Admin: 07/01/19 09:21 Dose: 200 mg - Allergies Allergies: Allergies Allergy/AdvReac Type Severity Reaction Status Date / Time No Known Drug Allergies Allergy Verified 06/29/19 22:07 coconut Allergy Severe Hives Uncoded 06/29/19 22:07 seafood Allergy Severe Hives Uncoded 06/29/19 22:07 - Current Living Status Usual Living Arrangement: With Spouse - Current Mental Status Evaluation Appearance: Disheveled Attitude: Guarded - Affect Affect: Constrictive Appropriateness: Not Appropriate - Mood Mood: Angry - Speech/Language Expressive: Coherent - Psychomotor Activity Psychomotor Activity: Slowed - Thought Process Thought Process: Intact - Thought Content Hallucinations: Absent Delusions: Absent - Self Perception Self Perception: No Impairment - Cognition Attention: Alert Orientation: Time Memory, Immediate Recall: Intact Memory, Short Term: 2/3
[2019-07-01] MEDS ORDERED: LORazepam 2 MG/ML SDV VIAL ONE (14:49)
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
[2019-07-01] MEDS: SODIUM CHLORIDE 1,000 ML IV SCH (20:53)
[2019-07-01] MEDS: QUEtiapine FUMARATE 100 MG TABLET (FP) PO SCH (21:26)
[2019-07-01] MEDS: CHLORHEXIDINE GLUCONATE 4% CLEANSER FOR DECOLONIZATION TP SCH (21:44)
--- NOTE | 2019-07-02 05:08 | PN ---
Physical Exam: SUBJECTIVE: Patient seen and examined. Irritated. Wants to leave AMA. Discussed w/ patient risks of leaving AMA, including seizure, LOC, head injury, disability , . OBJECTIVE: Vital Signs Period Temp Pulse Resp BP Sys/Carranza Pulse Ox Last 24 Hr 97.8 F-98.8 F 50-66 14-18 120-160/69-88 95-100 GENERAL: AOx3. NAD HEENT: L sided facial droop. Slurred speech. LUNGS: CTABL. HEART: Regular rate and rhythm, S1, S2 without murmur, rub or gallop. ABDOMEN: Soft, nontender, nondistended, normoactive bowel sounds, no guarding. EXTREMITIES: 2+ pulses, warm, well-perfused, no edema. Full ROM. NEUROLOGICAL: L sided facial droop. PSYCH: Denies wishes of harm to self or others. Denies AVH. SKIN: Warm, dry, normal turgor, no rashes or lesions noted Laboratory Results - last 24 hr 07/01/19 07/01/19 07/01/19 05:25 05:25 06:14 WBC 12.0 H RBC 4.44 Hgb 13.8 Hct 42.4 MCV 95.6 MCH 31.2 MCHC 32.6 RDW 13.8 Plt Count 228 MPV 9.2 Absolute Neuts (auto) 6.8 Neutrophils % 56.4 Lymphocytes % 36.9 D Monocytes % 5.0 Eosinophils % 1.1 Basophils % 0.6 Nucleated RBC % 0 Sodium 144 Potassium 4.1 Chloride 108 H Carbon Dioxide 30 Anion Gap 6 L BUN 10.5 Creatinine 0.9 Est GFR (CKD-EPI)AfAm 112.62 Est GFR (CKD-EPI)NonAf 97.17 POC Glucometer 70 Random Glucose 67 L Calcium 8.5 Phosphorus 3.8 Magnesium 2.2 Total Bilirubin 0.6 AST 21 ALT 17 Alkaline Phosphatase 74 Total Protein 6.6 Albumin 3.5 07/01/19 07/01/19 07/01/19 12:07 12:09 17:27 WBC RBC Hgb Hct MCV MCH MCHC RDW Plt Count MPV Absolute Neuts (auto) Neutrophils % Lymphocytes % Monocytes % Eosinophils % Basophils % Nucleated RBC % Sodium Potassium Chloride Carbon Dioxide Anion Gap BUN Creatinine Est GFR (CKD-EPI)AfAm Est GFR (CKD-EPI)NonAf POC Glucometer 188 76 232 Random Glucose Calcium Phosphorus Magnesium Total Bilirubin AST ALT Alkaline Phosphatase Total Protein Albumin 07/01/19 21:38 WBC RBC Hgb Hct MCV MCH MCHC RDW Plt Count MPV Absolute Neuts (auto) Neutrophils % Lymphocytes % Monocytes % Eosinophils % Basophils % Nucleated RBC % Sodium Potassium Chloride Carbon Dioxide Anion Gap BUN Creatinine Est GFR (CKD-EPI)AfAm Est GFR (CKD-EPI)NonAf POC Glucometer 65 Random Glucose Calcium Phosphorus Magnesium Total Bilirubin AST ALT Alkaline Phosphatase Total Protein Albumin Active Medications Generic Name Dose Route Start Last Admin Trade Name Freq PRN Reason Stop Dose Admin Alprazolam 0.5 mg 07/01/19 11:30 07/01/19 21:26 Xanax - PO 0.5 mg BID PRN Administration ANXIETY Aspirin 81 mg 07/01/19 10:00 07/01/19 09:01 Ecotrin - PO 81 mg DAILY [facility] Administration Chlorhexidine Gluconate 1 applic 06/30/19 22:00 07/01/19 21:44 Hibiclens For Decolonization - TP Not Given HS [facility] Enoxaparin Sodium 40 mg 06/30/19 10:00 07/01/19 09:01 Lovenox - SQ 40 mg DAILY [facility] Administration Sodium Chloride 1,000 mls @ 42 mls/hr 06/29/19 21:45 07/01/19 20:53 Normal Saline - IV Not Given ASDIR [facility] Insulin Aspart 1 vial 07/01/19 22:00 07/01/19 21:45 Novolog Vial Sliding Scale - SQ Not Given ACHS [facility] Protocol Lisinopril 5 mg 07/01/19 10:00 07/01/19 09:01 Prinivil PO 5 mg DAILY [facility] Administration Methadone HCl 20 mg 07/02/19 07:00 Dolophine - PO 07/02/19 07:01 ONCE ONE Mupirocin 1 applic 06/30/19 10:00 07/01/19 21:44 Bactroban Ointment (For Decolonization) - NS 07/05/19 09:59 Not Given BID [facility] Quetiapine Fumarate 100 mg 06/30/19 22:00 07/01/19 21:26 Seroquel - PO 100 mg HS [facility] Administration Tamsulosin HCl 0.4 mg 07/01/19 08:30 07/01/19 09:01 Flomax - PO 0.4 mg DAILY@0830 [facility] Administration Thiamine HCl 200 mg 06/30/19 10:00 07/01/19 09:21 Vitamin B1 Injection - IVPB 200 mg DAILY [facility] Administration ASSESSMENT/PLAN: 53 y.o. M PMH HLD, HTN, CVA, NIDDM, polysubstance abuse (cocaine, heroin, benzodiazepines), BPH presented to the ED w/ AMS, admitted for toxic metabolic encephalopathy. #Acute toxic metabolic encephalopathy 2/2 benzo overdose -Pt takes Xanax at home, likely abusing -Resuming xanax for withdrawal prevention -CT head/Brain CTA neg -Narcan administration with little response, TSH wnL, HbA1c wnL -Neuro checks -Neuro following (Dr. Ramirez) -Psych evaluated pt (Dr. Ley) -F/u EEG (pending) for L facial droop -Seizure precautions #HTN -C/w Lisinopril 5mg daily -EKG shows NSR -ZEESHAN w/EF 60-65% in 12/2018 -Holding home HTN meds #NIDDM -ISS -BGM -HbA1c 5.9% -Med rec home regimen # HLD -Med rec home regimen #Polysubstance Abuse -On methadone, need to confirm dose -F/u [facility] records #BPH -C/w tamsulosin # F/E/N -NS @ 42mL/ hr -Monitor lytes -Soft diet, advance as tolerated # DVT prophylaxis -Lovenox 40 mg SQ daily # Dispo -FULL CODE Visit type - Emergency Visit Emergency Visit: No - New Patient This patient is new to me today: No - Critical Care Critical Care patient: Yes Total Critical Care Time (in minutes): 35 Critical Care Statement: The care of this patient involved high complexity decision making to prevent further life threatening deterioration of the patient 's condition and/or to evaluate & treat vital organ system(s) failure or risk of failure. ATTENDING PHYSICIAN STATEMENT I saw and evaluated the patient. I reviewed the resident's note and discussed the case with the resident. I agree with the resident's findings and plan as documented. SUBJECTIVE: OBJECTIVE: ASSESSMENT AND PLAN:
[2019-07-02 06:57] LABS: HEMATOCRIT 41.6 % (35.4-49); HEMOGLOBIN 14.1 GM/dL (11.7-16.9); MCH 31.8 pg (25.7-33.7); MCHC 33.9 g/dl (32.0-35.9); MEAN PLT VOLUME 8.7 fl (7.5-11.1); PLATELET COUNT 213 K/MM3 (134-434); RBC 4.42 M/mm3 (4.00-5.60); RDW 13.7 % (11.9-15.9); WHITE BLOOD COUNT 8.3 K/mm3 (4.0-10.0)
[2019-07-02] MEDS ORDERED: METHADONE HCL 10 MG TABLET PO ONE (07:00)
[2019-07-02 07:13] LABS: ALBUMIN 3.6 g/dl (3.4-5.0); BILIRUBIN,TOTAL 0.8 mg/dL (0.2-1); BLOOD UREA NITROGEN 9.1 mg/dL (7-18); CALCIUM 8.9 mg/dL (8.5-10.1); CREATININE 0.7 mg/dL (0.55-1.3); MAGNESIUM 2.4 mg/dL (1.8-2.4); PHOSPHOROUS 3.6 mg/dL (2.5-4.9)
[2019-07-02] MEDS: INSULIN SLIDING SCALE (NOVOLOG) 1 VIAL SQ SCH ×4 (07:22→21:27)
[2019-07-02] MEDS: TAMSULOSIN HCL 0.4 MG CAP PO SCH (08:46)
--- NOTE | 2019-07-02 09:24 | PN ---
Teaching Attending Note Name of Resident: Woody Canada ATTENDING PHYSICIAN STATEMENT I saw and evaluated the patient. I reviewed the resident's note and discussed the case with the resident. I agree with the resident's findings and plan as documented. SUBJECTIVE: Patient seen and examined in the ICU. Awake and alert. Fully dressed. Seen by Psych but not clear if capacity was determined. Intake & Output 06/29/19 06/30/19 07/01/19 07/02/19 23:59 23:59 23:59 23:59 Intake Total 1173 1658 240 Output Total 700 1700 800 Balance -700 -527 858 240 Weight 200 lb 190 lb 9.6 oz 190 lb 9.6 oz Last Vital Signs Temp Pulse Resp BP Pulse Ox 98 F 62 16 149/81 97 07/02/19 06:00 07/02/19 06:00 07/02/19 06:00 07/02/19 06:00 07/02/19 06:00 Active Medications Alprazolam (Xanax -) 0.5 mg PO BID PRN PRN Reason: ANXIETY Last Admin: 07/01/19 21:26 Dose: 0.5 mg Aspirin (Ecotrin -) 81 mg PO DAILY [facility] Last Admin: 07/01/19 09:01 Dose: 81 mg Chlorhexidine Gluconate (Hibiclens For Decolonization -) 1 applic TP HS [facility] Last Admin: 07/01/19 21:44 Dose: Not Given Enoxaparin Sodium (Lovenox -) 40 mg SQ DAILY [facility] Last Admin: 07/01/19 09:01 Dose: 40 mg Sodium Chloride (Normal Saline -) 1,000 mls @ 42 mls/hr IV ASDIR [facility] Last Admin: 07/01/19 20:53 Dose: Not Given Insulin Aspart (Novolog Vial Sliding Scale -) 1 vial SQ ACHS [facility]; Protocol Last Admin: 07/02/19 07:22 Dose: Not Given Lisinopril (Prinivil) 5 mg PO DAILY [facility] Last Admin: 07/01/19 09:01 Dose: 5 mg Mupirocin (Bactroban Ointment (For Decolonization) -) 1 applic NS BID [facility] Stop: 07/05/19 09:59 Last Admin: 07/01/19 21:44 Dose: Not Given Quetiapine Fumarate (Seroquel -) 100 mg PO [facility] Last Admin: 07/01/19 21:26 Dose: 100 mg Tamsulosin HCl (Flomax -) 0.4 mg PO DAILY@0830 [facility] Last Admin: 07/02/19 08:46 Dose: 0.4 mg Thiamine HCl (Vitamin B1 Injection -) 200 mg IVPB DAILY [facility] Last Admin: 07/01/19 09:21 Dose: 200 mg GENERAL: Awake and alert, NAD EYES: Pupils equal and reactive ENT: Less swelling of the left upper lip LUNGS: Clear, no wheezes HEART: RRR, no murmurs ABDOMEN: Soft, well-healed midline, vertical, surgical scar noted on abdomen EXTREMITIES: no edema. NEUROLOGICAL: Sleepy, exam is non-focal SKIN: No track ramsey or rashes noted, tattoos Laboratory Results - last 24 hr 07/01/19 07/01/19 07/01/19 12:07 12:09 17:27 WBC RBC Hgb Hct MCV MCH MCHC RDW Plt Count MPV Sodium Potassium Chloride Carbon Dioxide Anion Gap BUN Creatinine Est GFR (CKD-EPI)AfAm Est GFR (CKD-EPI)NonAf POC Glucometer 188 76 232 Random Glucose Calcium Phosphorus Magnesium Total Bilirubin AST ALT Alkaline Phosphatase Total Protein Albumin 07/01/19 07/02/19 07/02/19 21:38 06:29 06:29 WBC 8.3 RBC 4.42 Hgb 14.1 Hct 41.6 MCV 94.0 MCH 31.8 MCHC 33.9 RDW 13.7 Plt Count 213 MPV 8.7 Sodium 145 Potassium 4.0 Chloride 110 H Carbon Dioxide 30 Anion Gap 5 L BUN 9.1 Creatinine 0.7 Est GFR (CKD-EPI)AfAm 124.87 Est GFR (CKD-EPI)NonAf 107.74 POC Glucometer 65 Random Glucose 69 L Calcium 8.9 Phosphorus 3.6 Magnesium 2.4 Total Bilirubin 0.8 AST 22 ALT 20 Alkaline Phosphatase 73 Total Protein 7.0 Albumin 3.6 ASSESSMENT/PLAN: Acute Respiratory Failure Polysubstance abuse Low clinical suspicion of CVA Altered Mental Status Hypertension Diabetes Mellitus Hyperlipidemia Psych follow up to determine capacity OOB to chair VTE prophylaxis Monitor for withdrawal symptoms Glycemic control O2 as needed Floor Dr Smith
[2019-07-02] MEDS: LISINOPRIL 5 MG TABLET (FP) PO SCH (09:38)
[2019-07-02] MEDS: ASPIRIN COATED 81 MG TABLET.EC PO SCH (09:39)
[2019-07-02] MEDS: THIAMINE HCL 200 MG/2 ML VIAL IVPB SCH (09:43)
[2019-07-02] MEDS: MUPIROCIN 2% TOPICAL OINTMENT FOR DECOLONIZATION NS SCH ×2 (09:45→21:27)
[2019-07-02] MEDS: ENOXAPARIN NA (PORCINE) 40 MG/0.4 ML DISP.SYRIN SQ SCH (09:46)
[2019-07-02] MEDS: ALPRAZolam 0.25 MG TABLET PO PRN (11:40)
--- NOTE | 2019-07-02 11:40 | PN ---
Progress Note (short form) - Note Progress Note: Psych follow up; Case discussed with staff, Patient had an uneventful night. NO reports of self damaging behaviour . slept well. still demanding to go home. MS: alert, oriented. good eye contact. not hallucinating or Delusional. Able to ambulate and comprehend. patient understands the [id number] that can arise from leaving the Hospital against AMA. Patient is not Psychotic at this time. REC: 1) Patient has the Mental Capacity to sign out AMA . 2) Patient is not suicidal at this time. 3) will follow up with Methadone [facility] and his Psychiatrist.
--- NOTE | 2019-07-02 12:18 | PN ---
Physical Exam: SUBJECTIVE: Patient seen and examined. No overnight events noted. OBJECTIVE: Vital Signs Period Temp Pulse Resp BP Sys/Carranza Pulse Ox Last 24 Hr 97.8 F-98.1 F 50-62 14-18 120-164/69-93 95-100 GENERAL: A&Ox3, no acute distress EYES: PERRLA, EOMI ENT: Moist mucus membranes NECK: No JVD LUNGS: CTA, no wheezes HEART: RRR, no murmurs ABDOMEN: Soft, nontender, BS present MUSCULOSKELETAL: No CVA Tenderness EXTREMITIES: 2+ pulses, no edema. NEUROLOGICAL: Cranial nerves II-XII intact. Mild L sided facial droop noted. Laboratory Results - last 24 hr 07/01/19 07/01/19 07/02/19 17:27 21:38 06:29 WBC 8.3 RBC 4.42 Hgb 14.1 Hct 41.6 MCV 94.0 MCH 31.8 MCHC 33.9 RDW 13.7 Plt Count 213 MPV 8.7 Sodium Potassium Chloride Carbon Dioxide Anion Gap BUN Creatinine Est GFR (CKD-EPI)AfAm Est GFR (CKD-EPI)NonAf POC Glucometer 232 65 Random Glucose Calcium Phosphorus Magnesium Total Bilirubin AST ALT Alkaline Phosphatase Total Protein Albumin 07/02/19 07/02/19 06:29 11:42 WBC RBC Hgb Hct MCV MCH MCHC RDW Plt Count MPV Sodium 145 Potassium 4.0 Chloride 110 H Carbon Dioxide 30 Anion Gap 5 L BUN 9.1 Creatinine 0.7 Est GFR (CKD-EPI)AfAm 124.87 Est GFR (CKD-EPI)NonAf 107.74 POC Glucometer 98 Random Glucose 69 L Calcium 8.9 Phosphorus 3.6 Magnesium 2.4 Total Bilirubin 0.8 AST 22 ALT 20 Alkaline Phosphatase 73 Total Protein 7.0 Albumin 3.6 Active Medications Generic Name Dose Route Start Last Admin Trade Name Freq PRN Reason Stop Dose Admin Alprazolam 0.5 mg 07/01/19 11:30 07/02/19 11:40 Xanax - PO 0.5 mg BID PRN Administration ANXIETY Aspirin 81 mg 07/01/19 10:00 07/02/19 09:39 Ecotrin - PO 81 mg DAILY [facility] Administration Chlorhexidine Gluconate 1 applic 06/30/19 22:00 07/01/19 21:44 Hibiclens For Decolonization - TP Not Given HS [facility] Enoxaparin Sodium 40 mg 06/30/19 10:00 07/02/19 09:46 Lovenox - SQ Not Given DAILY [facility] Sodium Chloride 1,000 mls @ 42 mls/hr 06/29/19 21:45 07/01/19 20:53 Normal Saline - IV Not Given ASDIR [facility] Insulin Aspart 1 vial 07/01/19 22:00 07/02/19 07:22 Novolog Vial Sliding Scale - SQ Not Given ACHS [facility] Protocol Lisinopril 5 mg 07/01/19 10:00 07/02/19 09:38 Prinivil PO 5 mg DAILY [facility] Administration Mupirocin 1 applic 06/30/19 10:00 07/02/19 09:45 Bactroban Ointment (For Decolonization) - NS 07/05/19 09:59 Not Given BID [facility] Quetiapine Fumarate 100 mg 06/30/19 22:00 07/01/19 21:26 Seroquel - PO 100 mg HS [facility] Administration Tamsulosin HCl 0.4 mg 07/01/19 08:30 07/02/19 08:46 Flomax - PO 0.4 mg DAILY@0830 [facility] Administration Thiamine HCl 200 mg 06/30/19 10:00 07/02/19 09:43 Vitamin B1 Injection - IVPB Not Given DAILY [facility] ASSESSMENT/PLAN: 53 year old male with a history of hyperlipidemia, hypertension, CVA, diabetes mellitus and polysubstance abuse was brought by EMS for altered mental status. Acute Toxic Encephalopathy -resolved -psych cleared patient, has capacity -regular diet -awaiting EEG per neuro/ rai's paralysis? -stable for transfer -on methadone 20 -on xanax BID Visit type - Emergency Visit Emergency Visit: No - New Patient This patient is new to me today: No - Critical Care Critical Care patient: No ATTENDING PHYSICIAN STATEMENT I saw and evaluated the patient. I reviewed the resident's note and discussed the case with the resident. I agree with the resident's findings and plan as documented. SUBJECTIVE: OBJECTIVE: ASSESSMENT AND PLAN:
[2019-07-02 16:16] VITALS: BMI 28.0
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
[2019-07-02] MEDS: QUEtiapine FUMARATE 100 MG TABLET (FP) PO SCH (21:17)
[2019-07-02] MEDS: ACETAMINOPHEN 325 MG TABLET (FP) PO PRN (21:17)
[2019-07-02] MEDS: CHLORHEXIDINE GLUCONATE 4% CLEANSER FOR DECOLONIZATION TP SCH (21:27)
[2019-07-02] MEDS: SODIUM CHLORIDE 1,000 ML IV SCH (21:27)
[2019-07-03] MEDS ORDERED: METHADONE HCL 10 MG TABLET PO ONE (06:07)
[2019-07-03] MEDS: INSULIN SLIDING SCALE (NOVOLOG) 1 VIAL SQ SCH ×2 (06:44→11:54)
--- NOTE | 2019-07-03 07:00 | CONSULT ---
Consultation: REQUESTING PROVIDER: CONSULT REQUEST: We have been asked to medically evaluate this patient for ( specify). HISTORY OF PRESENT ILLNESS: REVIEW OF SYSTEMS: CONSTITUTIONAL: Absent: fever, chills, diaphoresis, generalized weakness, malaise, loss of appetite, weight change HEENT: Absent: rhinorrhea, nasal congestion, throat pain, throat swelling, difficulty swallowing, mouth swelling, ear pain, eye pain, visual changes CARDIOVASCULAR: Absent: chest pain, syncope, palpitations, irregular heart rate, lightheadedness , peripheral edema RESPIRATORY: Absent: cough, shortness of breath, dyspnea with exertion, orthopnea, wheezing, stridor, hemoptysis GASTROINTESTINAL: Absent: abdominal pain, abdominal distension, nausea, vomiting, diarrhea, constipation, melena, hematochezia GENITOURINARY: Absent: dysuria, frequency, urgency, hesitancy, hematuria, flank pain, genital pain MUSCULOSKELETAL: Absent: myalgia, arthralgia, joint swelling, back pain, neck pain SKIN: Absent: rash, itching, pallor HEMATOLOGIC/IMMUNOLOGIC: Absent: easy bleeding, easy bruising, lymphadenopathy, frequent infections ENDOCRINE: Absent: unexplained weight gain, unexplained weight loss, heat intolerance, cold intolerance NEUROLOGIC: Absent: headache, focal weakness or paresthesias, dizziness, unsteady gait, seizure, mental status changes, bladder or bowel incontinence PSYCHIATRIC: Absent: anxiety, depression, suicidal or homicidal ideation, hallucinations. PHYSICAL EXAMINATION Vital Signs - 24 hr 07/02/19 07/02/19 07/02/19 08:00 09:00 09:54 Temperature Pulse Rate 54 L Respiratory 17 17 Rate Blood Pressure 164/93 153/71 O2 Sat by Pulse 97 Oximetry (%) 07/02/19 07/02/19 07/02/19 10:00 12:00 16:00 Temperature 98.1 F Pulse Rate 80 89 60 Respiratory 16 27 H Rate Blood Pressure 134/69 152/76 O2 Sat by Pulse Oximetry (%) 07/02/19 07/02/19 07/02/19:19 19:00 21:00 Temperature Pulse Rate Respiratory 16 Rate Blood Pressure 124/71 O2 Sat by Pulse 95 95 Oximetry (%) 07/02/19 07/03/19 07/03/19 21:30 00:00 06:00 Temperature 97.9 F Pulse Rate 60 60 65 Respiratory 16 18 Rate Blood Pressure 139/79 149/90 O2 Sat by Pulse 95 Oximetry (%) GENERAL: Awake, alert, and fully oriented, in no acute distress. HEAD: Normal with no signs of trauma. EYES: Pupils equal, round and reactive to light, extraocular movements intact, sclera anicteric, conjunctiva clear. No lid lag. EARS, NOSE, THROAT: Ears normal, nares patent, oropharynx clear without exudates. Moist mucous membranes. NECK: Normal range of motion, supple without lymphadenopathy, JVD, or masses. LUNGS: Breath sounds equal, clear to auscultation bilaterally. No wheezes, and no crackles. No accessory muscle use. HEART: Regular rate and rhythm, normal S1 and S2 without murmur, rub or gallop. ABDOMEN: Soft, nontender, not distended, normoactive bowel sounds, no guarding, no rebound, no masses. No hepatomegaly or splenomegaly. MUSCULOSKELETAL: Normal range of motion at all joints. No bony deformities or tenderness. No CVA tenderness. UPPER EXTREMITIES: 2+ pulses, warm, well-perfused. No cyanosis. No clubbing. Cap refill <2 seconds. No peripheral edema. LOWER EXTREMITIES: 2+ pulses, warm, well-perfused. No calf tenderness. No peripheral edema. NEUROLOGICAL: Cranial nerves II-XII intact. Normal speech. Normal gait. PSYCHIATRIC: Cooperative. Good eye contact. Appropriate mood and affect. SKIN: Warm, dry, normal turgor, no rashes or lesions noted. Laboratory Results - last 24 hr 07/02/19 07/02/19 07/02/19 06:29 06:29 11:42 WBC 8.3 RBC 4.42 Hgb 14.1 Hct 41.6 MCV 94.0 MCH 31.8 MCHC 33.9 RDW 13.7 Plt Count 213 MPV 8.7 Sodium 145 Potassium 4.0 Chloride 110 H Carbon Dioxide 30 Anion Gap 5 L BUN 9.1 Creatinine 0.7 Est GFR (CKD-EPI)AfAm 124.87 Est GFR (CKD-EPI)NonAf 107.74 POC Glucometer 98 Random Glucose 69 L Calcium 8.9 Phosphorus 3.6 Magnesium 2.4 Total Bilirubin 0.8 AST 22 ALT 20 Alkaline Phosphatase 73 Total Protein 7.0 Albumin 3.6 07/02/19 07/02/19 07/03/19 17:39 21:21 06:44 WBC RBC Hgb Hct MCV MCH MCHC RDW Plt Count MPV Sodium Potassium Chloride Carbon Dioxide Anion Gap BUN Creatinine Est GFR (CKD-EPI)AfAm Est GFR (CKD-EPI)NonAf POC Glucometer 156 157 110 Random Glucose Calcium Phosphorus Magnesium Total Bilirubin AST ALT Alkaline Phosphatase Total Protein Albumin Active Medications Generic Name Dose Route Start Last Admin Trade Name Freq PRN Reason Stop Dose Admin Acetaminophen 650 mg 07/02/19 20:39 07/02/19 21:17 Tylenol - PO 650 mg Q4H PRN Administration PAIN LEVEL 6-10 Alprazolam 0.5 mg 07/01/19 11:30 07/02/19 11:40 Xanax - PO 0.5 mg BID PRN Administration ANXIETY Aspirin 81 mg 07/01/19 10:00 07/02/19 09:39 Ecotrin - PO 81 mg DAILY [facility] Administration Chlorhexidine Gluconate 1 applic 06/30/19 22:00 07/02/19 21:27 Hibiclens For Decolonization - TP 1 applic HS [facility] Administration Enoxaparin Sodium 40 mg 06/30/19 10:00 07/02/19 09:46 Lovenox - SQ Not Given DAILY [facility] Sodium Chloride 1,000 mls @ 42 mls/hr 06/29/19 21:45 07/02/19 21:27 Normal Saline - IV Not Given ASDIR [facility] Insulin Aspart 1 vial 07/02/19 22:00 07/03/19 06:44 Novolog Vial Sliding Scale - SQ Not Given ACHS [facility] Protocol Lisinopril 5 mg 07/01/19 10:00 07/02/19 09:38 Prinivil PO 5 mg DAILY [facility] Administration Mupirocin 1 applic 06/30/19 10:00 07/02/19 21:27 Bactroban Ointment (For Decolonization) - NS 07/05/19 09:59 Not Given BID [facility] Quetiapine Fumarate 100 mg 06/30/19 22:00 07/02/19 21:17 Seroquel - PO 100 mg HS [facility] Administration Tamsulosin HCl 0.4 mg 07/01/19 08:30 07/02/19 08:46 Flomax - PO 0.4 mg DAILY@0830 [facility] Administration Thiamine HCl 200 mg 06/30/19 10:00 07/02/19 09:43 Vitamin B1 Injection - IVPB Not Given DAILY [facility] ASSESSMENT/PLAN: Dispo: We will continue to follow the patient. Thank you for this consultative opportunity. ATTENDING PHYSICIAN STATEMENT I saw and evaluated the patient. I reviewed the resident's note and discussed the case with the resident. I agree with the resident's findings and plan as documented. SUBJECTIVE: OBJECTIVE: ASSESSMENT AND PLAN:
--- NOTE | 2019-07-03 07:05 | PN ---
Physical Exam: SUBJECTIVE: Patient seen and examined, no events reported overnight by ICU team. Patient c/o being anxious because he doesn't like hospitals. The patient denies chest pain, shortness of breath, abdominal pain, nausea/vomiting , diarrhea/constipation. OBJECTIVE: Vital Signs Period Temp Pulse Resp BP Sys/Carranza Pulse Ox Last 24 Hr 97.9 F-98.1 F 54-89 16-27 124-164/69-93 95-97 General: awake, alert HEENT: L upper labial swelling (improving on PE during course of ICU admission) ; L lower facial droop/paralysis noted, decreased visual acuity on L side CV: S1, S2, RRR Respiratory: CLTA B/L Abdomen: soft, (+) bowel sounds, no TTP Integumentary: multiple tattoos, no visible track ramsey on extremities or groin Laboratory Results - last 24 hr 07/02/19 07/02/19 07/02/19 06:29 11:42 17:39 Sodium 145 Potassium 4.0 Chloride 110 H Carbon Dioxide 30 Anion Gap 5 L BUN 9.1 Creatinine 0.7 Est GFR (CKD-EPI)AfAm 124.87 Est GFR (CKD-EPI)NonAf 107.74 POC Glucometer 98 156 Random Glucose 69 L Calcium 8.9 Phosphorus 3.6 Magnesium 2.4 Total Bilirubin 0.8 AST 22 ALT 20 Alkaline Phosphatase 73 Total Protein 7.0 Albumin 3.6 07/02/19 07/03/19 21:21 06:44 Sodium Potassium Chloride Carbon Dioxide Anion Gap BUN Creatinine Est GFR (CKD-EPI)AfAm Est GFR (CKD-EPI)NonAf POC Glucometer 157 110 Random Glucose Calcium Phosphorus Magnesium Total Bilirubin AST ALT Alkaline Phosphatase Total Protein Albumin Active Medications Generic Name Dose Route Start Last Admin Trade Name Freq PRN Reason Stop Dose Admin Acetaminophen 650 mg 07/02/19 20:39 07/02/19 21:17 Tylenol - PO 650 mg Q4H PRN Administration PAIN LEVEL 6-10 Alprazolam 0.5 mg 07/01/19 11:30 07/02/19 11:40 Xanax - PO 0.5 mg BID PRN Administration ANXIETY Aspirin 81 mg 07/01/19 10:00 07/02/19 09:39 Ecotrin - PO 81 mg DAILY [facility] Administration Chlorhexidine Gluconate 1 applic 06/30/19 22:00 07/02/19 21:27 Hibiclens For Decolonization - TP 1 applic HS [facility] Administration Enoxaparin Sodium 40 mg 06/30/19 10:00 07/02/19 09:46 Lovenox - SQ Not Given DAILY [facility] Sodium Chloride 1,000 mls @ 42 mls/hr 06/29/19 21:45 07/02/19 21:27 Normal Saline - IV Not Given ASDIR [facility] Insulin Aspart 1 vial 07/02/19 22:00 07/03/19 06:44 Novolog Vial Sliding Scale - SQ Not Given ACHS [facility] Protocol Lisinopril 5 mg 07/01/19 10:00 07/02/19 09:38 Prinivil PO 5 mg DAILY [facility] Administration Mupirocin 1 applic 06/30/19 10:00 07/02/19 21:27 Bactroban Ointment (For Decolonization) - NS 07/05/19 09:59 Not Given BID [facility] Quetiapine Fumarate 100 mg 06/30/19 22:00 07/02/19 21:17 Seroquel - PO 100 mg HS [facility] Administration Tamsulosin HCl 0.4 mg 07/01/19 08:30 07/02/19 08:46 Flomax - PO 0.4 mg DAILY@0830 [facility] Administration Thiamine HCl 200 mg 06/30/19 10:00 07/02/19 09:43 Vitamin B1 Injection - IVPB Not Given DAILY [facility] ASSESSMENT/PLAN: Mr. Pina is a 53 y/o male with a PMHx of Heroin abuse, HTN, HLD, CVA, NIDDM who was brought into our facility for AMS. Patient intubated and admitted to ICU, during course of admission patient self-extubated and is now at baseline mental status. NEUROLOGICAL # Acute Toxic Encephalopathy - RESOLVED - Patient @ baseline MS, A&O x3 - Head CT x2 negative for acute ischemic event - Psych cleared patient for d/c home - EEG today (07/03) - Optho consult pending as patient now experiencing decreased visual acuity in L eye new since admission CARDIOVASCULAR #HTN - Continue home anti-hypertensive regimen: Lisinopril (5 mg QD) ENDOCRINE # NIDDM - HbA1c 5.9 - Continue SSI GASTROINTESTINAL -no acute abnormalities RENAL -no acute abnormalities FEN - Continue gentle hydration - Monitor and replete electrolytes as neccessary - Diabetic Diet PROPHYLAXIS Lovenox (40 mg SQ QD) DISPOSITION Patient stable for transfer to Med/Surg Case discussed with primary team @ bedside Visit type - Emergency Visit Emergency Visit: No - New Patient This patient is new to me today: No - Critical Care Critical Care patient: No ATTENDING PHYSICIAN STATEMENT I saw and evaluated the patient. I reviewed the resident's note and discussed the case with the resident. I agree with the resident's findings and plan as documented. SUBJECTIVE: OBJECTIVE: ASSESSMENT AND PLAN:
[2019-07-03 08:05] LABS: ALBUMIN 3.6 g/dl (3.4-5.0); BILIRUBIN,TOTAL 0.3 mg/dL (0.2-1); BLOOD UREA NITROGEN 12.6 mg/dL (7-18); CREATININE 0.9 mg/dL (0.55-1.3)
[2019-07-03] MEDS: ENOXAPARIN NA (PORCINE) 40 MG/0.4 ML DISP.SYRIN SQ SCH (09:19)
[2019-07-03] MEDS: ALPRAZolam 0.25 MG TABLET PO PRN (09:19)
[2019-07-03] MEDS: TAMSULOSIN HCL 0.4 MG CAP PO SCH (09:19)
[2019-07-03] MEDS: LISINOPRIL 5 MG TABLET (FP) PO SCH (09:20)
[2019-07-03] MEDS: ASPIRIN COATED 81 MG TABLET.EC PO SCH (09:20)
[2019-07-03] MEDS ORDERED: PT OWN MED DRAWER 7, Y5N ONE (09:22)
[2019-07-03] MEDS: THIAMINE HCL 200 MG/2 ML VIAL IVPB SCH ×2 (09:23→09:29)
[2019-07-03] MEDS: ACETAMINOPHEN 325 MG TABLET (FP) PO PRN (10:01)
[2019-07-03 10:39] LABS: BASO % 0.5 % (0-2.0); EOS % 1.9 % (0-4.5); HEMATOCRIT 41.5 % (35.4-49); HEMOGLOBIN 13.9 GM/dL (11.7-16.9); LYMPH % 43.3 % (8-40); MCH 31.6 pg (25.7-33.7); MCHC 33.6 g/dl (32.0-35.9); MEAN CELL VOLUME 94.2 fl (80-96); MEAN PLT VOLUME 9.1 fl (7.5-11.1); MONO % 7.2 % (3.8-10.2); NEUT % 47.1 % (42.8-82.8); PLATELET COUNT 230 K/MM3 (134-434); RBC 4.41 M/mm3 (4.00-5.60); RDW 13.7 % (11.9-15.9)
--- NOTE | 2019-07-03 11:19 | PN ---
Teaching Attending Note Name of Resident: Jaquelin Rose ATTENDING PHYSICIAN STATEMENT I saw and evaluated the patient. I reviewed the resident's note and discussed the case with the resident. I agree with the resident's findings and plan as documented. SUBJECTIVE: Pt seen and examined in the ICU. Still with left lower face numbness and left eye blurriness. No headache. OBJECTIVE: Vital Signs Period Temp Pulse Resp BP Sys/Carranza Pulse Ox Last 24 Hr 97.9 F 60-89 16-27 124-152/71-90 95-95 Intake & Output 06/30/19 07/01/19 07/02/19 07/03/19 23:59 23:59 23:59 23:59 Intake Total 1173 1658 1790 640 Output Total 1700 800 Balance -341 858 1491 640 Weight 86.455 kg 86.455 kg 86 kg Gen: NAD at rest Heart: RRR Lung: decreased breath sounds at the bases Abd: soft, nontender Ext: no edema CBC, BMP 07/03/19 07:29 07/03/19 07:25 Active Medications Acetaminophen (Tylenol -) 650 mg PO Q4H PRN PRN Reason: PAIN LEVEL 6-10 Last Admin: 07/03/19 10:01 Dose: 650 mg Alprazolam (Xanax -) 0.5 mg PO BID PRN PRN Reason: ANXIETY Last Admin: 07/03/19 09:19 Dose: 0.5 mg Aspirin (Ecotrin -) 81 mg PO DAILY [facility] Last Admin: 07/03/19 09:20 Dose: 81 mg Chlorhexidine Gluconate (Hibiclens For Decolonization -) 1 applic TP HS [facility] Last Admin: 07/02/19 21:27 Dose: 1 applic Enoxaparin Sodium (Lovenox -) 40 mg SQ DAILY [facility] Last Admin: 07/03/19 09:19 Dose: 40 mg Insulin Aspart (Novolog Vial Sliding Scale -) 1 vial SQ ACHS [facility]; Protocol Last Admin: 07/03/19 06:44 Dose: Not Given Lisinopril (Prinivil) 5 mg PO DAILY [facility] Last Admin: 07/03/19 09:20 Dose: 5 mg Mupirocin (Bactroban Ointment (For Decolonization) -) 1 applic NS BID [facility] Stop: 07/05/19 09:59 Last Admin: 07/02/19 21:27 Dose: Not Given Quetiapine Fumarate (Seroquel -) 100 mg PO HS [facility] Last Admin: 07/02/19 21:17 Dose: 100 mg Tamsulosin HCl (Flomax -) 0.4 mg PO DAILY@0830 [facility] Last Admin: 07/03/19 09:19 Dose: 0.4 mg Thiamine HCl (Vitamin B1 -) 100 mg PO DAILY [facility] ASSESSMENT AND PLAN: s/p Acute Respiratory Failure Polysubstance abuse Low clinical suspicion of CVA Altered Mental Status resolved Hypertension Diabetes Mellitus Hyperlipidemia - neuro f/u - consider optho eval - PO as tolerated - DVT prophylaxis - can monitor on floor
[2019-07-03] MEDS: MUPIROCIN 2% TOPICAL OINTMENT FOR DECOLONIZATION NS SCH (11:52)
[2019-07-03 13:04] VITALS: BP 144/75; PULSE 68; TEMP 98
--- NOTE | 2019-07-03 14:34 | DS ---
Physical Exam: SUBJECTIVE: 53 y/o M w PMH HLD, HTN, CVA, NIDDM, and polysubstance abuse ( cocaine, heroin, benzodiazepine) whom presented to the ED w AMS, seen in ICU today. Pt hx significant for EMS response to pt at home, where he was found next to bottle of Xanax. Progression from lethargy to non-responsive noted, w/o response to narcan, and pt was intubated in the field for airway protection. Pt was intubated and sedated and later self-extubated. More alert today, pt c/o poor balance, LEFT facial droop, and LEFT eye blurry vision. He denies feeling suicidal/homicidal, FATIMA, vision change, SOB, CP, NVFD, and chills. OBJECTIVE: Vital Signs Temp Pulse Resp BP Pulse Ox 98.0 F 68 18 144/75 95 07/03/19 10:00 07/03/19 10:00 07/03/19 10:00 07/03/19 10:00 07/03/19 09:00 PHYSICAL EXAM GENERAL: The patient is drowsy and only oriented x3, in no acute distress. HEAD: Normocephalic, atruamatic, evidence of fully healed linear scar along LEFT face EYES: Vision was 20/70 in LEFT eye, 20/20 binocular, 20/20 RIGHT eye, no pain, no tearing. DUSTIN. EOMI. Sclera anicteric, conjunctiva clear ENT: Ears normal, nares patent, oropharynx clear without exudates, moist mucous membranes. NECK: Trachea midline, full range of motion, supple. LUNGS: Breath sounds equal, clear to auscultation bilaterally, no wheezes, no crackles, no accessory muscle use. HEART: Regular rate and rhythm, S1, S2 without murmur, rub or gallop. ABDOMEN: Soft, nontender, nondistended, normoactive bowel sounds, no guarding, no rebound, no hepatosplenomegaly, no masses. EXTREMITIES: 2+ pulses, warm, well-perfused, no edema. NEUROLOGICAL: CN7 POS for LEFT facial droop, REOSLVED inability to raise LEFT eye brow today, inability to maintain puffed LEFT cheek. Slurred speech, gait not observed SKIN: Warm, dry, normal turgor, no rashes or lesions noted LABS Laboratory Results - last 24 hr 07/02/19 07/02/19 07/03/19 17:39 21:21 06:44 WBC RBC Hgb Hct MCV MCH MCHC RDW Plt Count MPV Absolute Neuts (auto) Neutrophils % Lymphocytes % Monocytes % Eosinophils % Basophils % Nucleated RBC % Sodium Potassium Chloride Carbon Dioxide Anion Gap BUN Creatinine Est GFR (CKD-EPI)AfAm Est GFR (CKD-EPI)NonAf POC Glucometer 156 157 110 Random Glucose Calcium Total Bilirubin AST ALT Alkaline Phosphatase Total Protein Albumin 07/03/19 07/03/19 07/03/19 07:25 07:29 11:30 WBC 8.0 RBC 4.41 Hgb 13.9 Hct 41.5 MCV 94.2 MCH 31.6 MCHC 33.6 RDW 13.7 Plt Count 230 MPV 9.1 Absolute Neuts (auto) 3.8 Neutrophils % 47.1 Lymphocytes % 43.3 H Monocytes % 7.2 Eosinophils % 1.9 Basophils % 0.5 Nucleated RBC % 0 Sodium 144 Potassium 4.0 Chloride 110 H Carbon Dioxide 30 Anion Gap 4 L BUN 12.6 Creatinine 0.9 Est GFR (CKD-EPI)AfAm 112.62 Est GFR (CKD-EPI)NonAf 97.17 POC Glucometer 140 Random Glucose 106 Calcium 9.0 Total Bilirubin 0.3 AST 17 ALT 19 Alkaline Phosphatase 74 Total Protein 7.0 Albumin 3.6 HOSPITAL COURSE: Date of Admission:06/30/19 53 y/o M w PMH HLD, HTN, CVA, NIDDM, and polysubstance abuse (cocaine, heroin, benzodiazepine) whom presented to the ED w AMS, admitted for toxic metabolic encephalopathy. Pt was found at home by unknown person (lives with girlfriend) to be unresponsive next to a bottle of Xanax. Pt nonresponsive to narcan and intubated in the field. Pt admitted to ICU for toxic metabolic encephalopathy vs CVA vs seizure. NEG head/brain CT, NSR on EKG. SABINE 2 pt self-extubated. On initial exam and throughout stay pt demonstrated LEFT sided focal findings of CN7, including LEFT facial droop, loss of sensation to touch, and inability to puff out cheek. Pt seen by neurology (Dr. Dimas) with recommended EEG to r/o seizure. No evidence of seizure activity during hospital stay. Pt seen at [facility] for h/o polysusbstance abuse (heroin, alcohol, cocaine, nicotine) on methadone but unable to ascertain last dose. No evidence of alcohol withdrawal. Thiamine, MVI, folate during stay. H/o DM 2 but pt does not appear to be on home medication. A1C during stay: 5.9. Pt wishing to leave AMA for SABINE 3 and 4 but did not after discussion. Per neurology on final day/SABINE 5, pt can return for EEG out-pt. Pt reported increasing LEFT eye blurry vision on SABINE 5. Vision was 20/70 in LEFT eye, 20/20 binocular, 20/20 RIGHT eye, no pain, no tearing. Pt was d/c directly to medical biller coder, Dr. Familia Love, [address] [place] [id number] . IMAGING 30 Jun 2019 Brain MRI Patient was confused and could not complete the exam. Compared to prior CT scan of the head dated 06/29/2019. Evaluation of the restricted diffusion images is limited due to motion artifacts. No gross focal abnormal signal intensity is identified. There is no gross shift of the midline structures. There is mild volume loss and ventricular dilatation. On the T1- weighted sagittal images, the craniocervical junction appears unremarkable. No gross discrete mass is identified. There is 1 cm focal mucosal thickening in left side of the sphenoid sinus likely representing a retention cyst versus polyp. IMPRESSION: Very limited examination, as described above. No gross restricted diffusion is identified to suggest an acute infarct. A complete MRI of the brain is recommended when the patient's condition permits for further evaluation. CXR The chest has been submitted. Since the prior 05/29/2019 at 2306 hours, again noted is the endotracheal tube with tip well above the eliseo. There is are weak inspiration with some increased markings at the left base as before. A very early left base infiltrate cannot be excluded. 29 Jun 2019 CXR The tip of ET tube at the level of T4-T5 disc space above bifurcation of the trachea. No pneumothorax seen. Unremarkable contour of the cardiomediastinal silhouette. No evidence of a pulmonary edema, CHF. Blunting of the right costophrenic angle is suggested. No pneumothorax, or large pleural effusion is seen. No evidence of a pulmonary infiltrates. Visualized osseous structures appear intact. Impression: Status post intubation, satisfactory location of the ET tube the tip above bifurcation of the trachea. No evidence of active pulmonary disease. No pneumothorax, or large pleural effusion. Questionable left basilar atelectatic changes CT BRAIN And intradural portion of the distal left vertebral artery is slightly dominant relative to the right. Otherwise, both distal vertebral arteries, the vertebrobasilar junction, basilar artery and its intracranial bifurcation appear unremarkable. Both posterior cerebral and superior cerebellar arteries appear unremarkable. Distal portion of both internal carotid arteries appear unremarkable except for small calcific densities at the cavernous carotid level. Intracranial bifurcation of both internal carotid arteries appear unremarkable.. Left A1 segment is slightly hypoplastic relative to the right. No gross focal hemodynamically significant stenosis major artery cutoff, aneurysm or vascular malformation are identified. Both posterior cerebral arteries were not visualized. Mild volume loss and ventricular dilatation as well as probable mild periventricular chronic microvascular ischemic disease changes again seen. No gross mass lesion or abnormal intracranial enhancement is identified. No extra-axial collections seen Both orbits appear unremarkable. There is mild deviation of the nasal septum towards the left. Mild chronic sinusitis in the ethmoid air cells and an approximately 1 cm retention cyst versus polyp in left side of the sphenoid sinus. Both temporal bones appear unremarkable. The calvarium is intact. Deformity of the left orbital medial wall consistent with a chronic fracture. In the included upper neck, orotracheal tube is present with its distal end not included on this exam. IMPRESSION: Slightly dominant distal left vertebral artery relative to the right. Otherwise, there is no evidence of focal hemodynamically significant stenosis, major artery cutoff, aneurysm or vascular malformation within the central intracranial arterial circulation. Both orbits appear unremarkable. No gross abnormal intracranial enhancement, mass lesion or extra-axial collection is seen. Mild chronic sinusitis in the ethmoid air cells with an approximately 1 cm retention cyst versus polyp in side of the sphenoid sinus. Chronic fracture involving the left orbital medial wall CT HEAD No intracranial hemorrhage is seen. There is no discrete infarct within the limitations of CT. No extra-axial fluid collection is noted. There is no obvious mass lesion on noncontrast imaging. The ventricles and cisterns appear unremarkable. The calvarium appears intact. Note is again made of a small polyp within the left sphenoid sinus inferiorly. Impression: No CT evidence of acute intracranial pathology. There has been no definite interval change in comparison to a prior CT exam of 01/08/2019. Date of Discharge: 07/03/19 Clinton Davies MD Discharge Summary Reason For Visit: DRUG OVERDOSE Current Active Problems Overdose (Acute) Polysubstance (excluding opioids) dependence (Acute) Ventilator dependence (Acute) Condition: Good - Instructions Diet, Activity, Other Instructions: YOUR VISIT You were brought to the hospital because you were found unconscious. On the way to the hospital you required intubation to ensure proper breathing. You were admitted to the ICU, where you removed the breathing tube on your own. While in the ICU, your consciousness returned. You were also seen by a neurologist. Presently, you report blurry vision. You are now medically stable and will be discharged to an eye doctor. MEDICATION Please continue to take your home medications. Please contact your primary care provider for further information/ ADDITIONAL CARE You are now being discharged to Dr. Familia Love's office Please follow up with your primary care provider, Dr. Paradise Haas, 1 week from today. Please make an appointment with Dr. Case Dimas for an EEG to be completed in the neurology office at [address] [place] [id number], You are strongly advised to go directly from the hospital to Dr. Love's office ( Ophthalmology) for eval of your blurry vision. Your appointment is at 1pm : Dr. Familia Love (Ophthalmology) [address] [place] [address] ADDITIONAL INFORMATION Please call 911 or come to the emergency department if you are experiencing shortness of breath, chest pain, abnormal bleeding, dizziness, loss of consciousness, loss of function of any part of your body, or any other alarming symptoms. Referrals: Familia Love MD [Staff Physician] - Case Dimas MD [Staff Physician] - Disposition: HOME - Home Medications Comprehensive Discharge Medication List: Ambulatory Orders Alprazolam 2 mg PO BID 06/30/19 Mirtazapine 30 mg PO DAILY 06/30/19 Quetiapine Fumarate [Seroquel] 100 mg PO DAILY 06/30/19 Tamsulosin HCl 0.4 mg PO DAILY 06/30/19 Zolpidem Tartrate 10 mg PO DAILY 06/30/19 Chlorhexidine Gluconate [Hibiclens For Decolonization -] 1 applic TP HS bottle 07/03/19 Lisinopril [Prinivil] 5 mg PO DAILY tablet 07/03/19 - Discharge Referral Referred to [facility] No ATTENDING PHYSICIAN STATEMENT I saw and evaluated the patient. I reviewed the resident's note and discussed the case with the resident. I agree with the resident's findings and plan as documented. SUBJECTIVE: OBJECTIVE: ASSESSMENT AND PLAN:
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
[2019-07-04] MEDS ORDERED: THIAMINE HCL 100 MG TABLET (FP) PO SCH (10:00)
== END 2019-07-03 11:45 | disposition home or self-care (01) | DRG 812 ==
LOC: JER 21:24 → JERBED 06-30 01:30 → JICU 06-30 02:11
PROVIDERS: ADMIT Internal Medicine
PROC: 0CHY7BZ Insertion of Airway into Mouth and Throat, Via Natural or Artificial Opening (ICD-10-PCS; principal; 2019-06-29)
PROC: HZ2ZZZZ Detoxification Services for Substance Abuse Treatment (ICD-10-PCS; 2019-06-29)
PROC: 5A1935Z Respiratory Ventilation, Less than 24 Consecutive Hours (ICD-10-PCS; 2019-07-01)
DX: T42.4X1A Poisoning by benzodiazepines, accidental (unintentional), initial encounter (principal); T40.2X1A Poisoning by other opioids, accidental (unintentional), initial encounter; G92 Toxic encephalopathy; J96.00 Acute respiratory failure, unspecified whether with hypoxia or hypercapnia; I10 Essential (primary) hypertension; E11.9 Type 2 diabetes mellitus without complications; E78.5 Hyperlipidemia, unspecified; F17.210 Nicotine dependence, cigarettes, uncomplicated; G40.89 Other seizures; F14.10 Cocaine abuse, uncomplicated; R29.810 Facial weakness; N40.0 Benign prostatic hyperplasia without lower urinary tract symptoms; F10.10 Alcohol abuse, uncomplicated; J32.8 Other chronic sinusitis; J33.8 Other polyp of sinus; H53.8 Other visual disturbances; M84.48XA Pathological fracture, other site, initial encounter for fracture; R41.82 Altered mental status, unspecified; Y92.098 Other place in other non-institutional residence as the place of occurrence of the external cause; Z86.73 Personal history of transient ischemic attack (TIA), and cerebral infarction without residual deficits
CPT/HCPCS: 36415; 36600; 70450-TC; 70496-TC; 70551-TC; 71045-TC-FY; 80053; 80307; 81003; 82375; 82465; 82550; 82553; 82803; 82962; 83036; 83050; 83718; 83721; 83735; 84100; 84443; 84478; 84484; 85025; 85027; 85610; 86850; 86900; 86901; 93005; 93010; 94660; 99285-25; J7030

== ENCOUNTER 2021-03-02 21:41 | Emergency (ER) | payer OTHER ==
[2021-03-02 21:53] VITALS: BP 115/78; PULSE 80; TEMP 98.9; BMI 32.5
[2021-03-02] MEDS ORDERED: DIPHTH,PERTUSS(ACELL),TET 0.5 ML DISP.SYRIN IM ONE ×2 (22:23→22:48)
== END 2021-03-02 22:55 | disposition home or self-care (01) ==
LOC: JER 21:41
PROC: 3E0234Z Introduction of Serum, Toxoid and Vaccine into Muscle, Percutaneous Approach (ICD-10-PCS; principal; 2021-03-02)
DX: S61.412A Laceration without foreign body of left hand, initial encounter (principal)
CPT/HCPCS: 73130-TC-LT-FY; 90715; 99284-25

== ENCOUNTER 2023-05-25 10:56 | Emergency (ER) | payer OTHER ==
[2023-05-25 11:08] VITALS: BP 170/99; PULSE 71; RESP 18; TEMP 98.7; BMI 28.8
[2023-05-25] MEDS ORDERED: ACETAMINOPHEN 1000 MG/100 ML BAG IVPB ONE (12:15)
[2023-05-25 12:48] LABS: BASO % 1.6 % (0-2.0); EOS % 0.5 % (0-4.5); HEMATOCRIT 46.5 % (35.4-49); HEMOGLOBIN 15.3 GM/dL (11.7-16.9); LYMPH % 36.4 % (8-40); MCH 30.8 pg (25.7-33.7); MEAN CELL VOLUME 93.4 fl (80-96); MEAN PLT VOLUME 9.1 fl (7.5-11.1); MONO % 11.5 % (3.8-10.2); PLATELET COUNT 259 10^3/uL (134-434); RBC 4.98 M/mm3 (4.00-5.60); RDW 13.6 % (11.9-15.9); WHITE BLOOD COUNT 8.7 K/mm3 (4.0-10.0)
[2023-05-25 13:12] LABS: POTASSIUM 4.3 mmol/L (3.5-5.1)
[2023-05-25] MEDS ORDERED: ACETAMINOPHEN INJECTION 100 ML IVPB ONE (13:12)
[2023-05-25 13:15] LABS: ALBUMIN 4.2 g/dl (3.4-5.0); BLOOD UREA NITROGEN 10.8 mg/dL (7-18); CALCIUM 9.5 mg/dL (8.5-10.1)
[2023-05-25 13:19] LABS: CREATININE 0.9 mg/dL (0.55-1.3)
[2023-05-25 13:20] LABS: BILIRUBIN,TOTAL 0.6 mg/dL (0.2-1); TOT PROT 8.1 g/dl (6.4-8.2)
== END 2023-05-25 13:45 | disposition left against medical advice (07) ==
LOC: JER 10:56
PROC: 3E033NZ Introduction of Analgesics, Hypnotics, Sedatives into Peripheral Vein, Percutaneous Approach (ICD-10-PCS; principal; 2023-05-25)
DX: M25.552 Pain in left hip (principal); R07.9 Chest pain, unspecified
CPT/HCPCS: 36415; 71045-TC-FY; 80053; 84484; 85025; 93005; 93010; 99285-25

== ENCOUNTER 2025-02-02 09:28 | Observation (INO) | payer OTHER ==
[2025-02-02] MEDS ORDERED: MAG HYDROX/AL HYDROX/SIMETH 30 ML UNIT-DOSE CUP ONE (10:47)
[2025-02-02] MEDS ORDERED: ACETAMINOPHEN INJECTION 100 ML ONE (10:47)
[2025-02-02] MEDS ORDERED: FAMOTIDINE 20 MG/50 ML IVPB 20 MG/50 ML MG IVPB ONE (10:48)
[2025-02-02] MEDS: FAMOTIDINE 20 MG/50 ML IVPB 20 MG/50 ML MG IVPB ONE (10:56)
[2025-02-02] MEDS: MAG HYDROX/AL HYDROX/SIMETH 30 ML UNIT-DOSE CUP PO ONE (10:57)
[2025-02-02 11:00] LABS: ABSOLUTE IMMATURE GRANULOCYTES 0.06 x10^3/uL (0.0-0.031); BASOPHILS # 0.12 x10^3/uL (0.01-0.08); EOSINOPHIL % 0.2 % (0.8-7.0); EOSINOPHILS # 0.03 x10^3/uL (0.04-0.54); HEMATOCRIT 41.5 % (40.1-51.0); HEMOGLOBIN 13.8 g/dL (13.7-17.5); MCHC 33.3 g/dl (32.3-36.5); MEAN CELL VOLUME 90.2 fl (79.0-92.2); MEAN PLT VOLUME 9.9 fl (9.4-12.4); MONOCYTE # 0.83 x10^3/uL (0.30-0.82); MONOCYTE % 5.6 % (5.3-12.2); PLATELET COUNT 330 x10^3/uL (163-337)
[2025-02-02 11:02] LABS: INR 1.08 (0.83-1.09); PROTHROMBIN TIME (PATIENT) 11.8 SEC (9.7-13.0)
[2025-02-02 11:05] LABS: ACTIVATED PTT 31.1 SECONDS (25.2-36.5)
[2025-02-02] MEDS: ACETAMINOPHEN 1000 MG/100 ML BAG IVPB ONE (11:07)
[2025-02-02 11:15] LABS: POTASSIUM 3.1 mmol/L (3.5-5.1)
[2025-02-02 11:17] LABS: ALBUMIN 3.9 g/dl (3.4-5.0); BLOOD UREA NITROGEN 8.8 mg/dL (7-18)
[2025-02-02 11:20] LABS: CREATININE 0.8 mg/dL (0.55-1.3)
[2025-02-02 11:22] LABS: BILIRUBIN,TOTAL 0.5 mg/dL (0.2-1); TOT PROT 7.7 g/dl (6.4-8.2)
[2025-02-02] MEDS: KCL 10 MEQ IVPB 10 MEQ/100 ML INFUS.BAG IVPB SCH (12:18)
[2025-02-02 12:33] LABS: HIV INTERPRETATION NEGATIVE (NEGATIVE)
[2025-02-02 12:36] LABS: HCV DIAGNOSTIC IN-HOUSE W/RFLX NON-REACTIVE (NONREACTIVE)
[2025-02-02] MEDS ORDERED: ASPIRIN 81 MG CHEWABLE TABLETS ONE (12:58)
[2025-02-02] MEDS ORDERED: QUEtiapine FUMARATE 25 MG TABLET ONE (12:59)
[2025-02-02] MEDS: QUEtiapine FUMARATE 25 MG TABLET PO ONE (13:00)
[2025-02-02] MEDS: ASPIRIN 81 MG CHEWABLE TABLETS PO ONE (13:00)
[2025-02-02] MEDS: POTASSIUM CHLORIDE ORAL LIQUID 20 MEQ/15 ML PO ONE (13:17)
[2025-02-02 13:26] LABS: ABSOLUTE IMMATURE GRANULOCYTES 0.06 x10^3/uL (0.0-0.031); BASOPHILS # 0.09 x10^3/uL (0.01-0.08); EOSINOPHIL % 0.3 % (0.8-7.0); EOSINOPHILS # 0.05 x10^3/uL (0.04-0.54); HEMATOCRIT 44.1 % (40.1-51.0); HEMOGLOBIN 14.3 g/dL (13.7-17.5); MCHC 32.4 g/dl (32.3-36.5); MEAN CELL VOLUME 91.5 fl (79.0-92.2); MEAN PLT VOLUME 9.9 fl (9.4-12.4); MONOCYTE # 0.87 x10^3/uL (0.30-0.82); MONOCYTE % 5.3 % (5.3-12.2); PLATELET COUNT 310 x10^3/uL (163-337); RDW 12.9 % (12.2-16.1)
[2025-02-02 13:33] VITALS: RESP 18
[2025-02-02 13:53] LABS: POTASSIUM 3.3 mmol/L (3.5-5.1)
[2025-02-02 13:55] LABS: BLOOD UREA NITROGEN 7.5 mg/dL (7-18)
[2025-02-02 13:58] LABS: CREATININE 0.8 mg/dL (0.55-1.3)
[2025-02-02 14:48] LABS: URINE COLOR YELLOW
[2025-02-02 14:49] LABS: PH,URINE 5.5 (5.0-8.0); URINE APPEARANCE CLEAR; URINE BILIRUBIN NEGATIVE (NEGATIVE); URINE GLUCOSE (UA) NEGATIVE (NEGATIVE); URINE KETONE NEGATIVE (NEGATIVE)
[2025-02-02 14:50] LABS: EPI CELLS 4.1 /uL (0-25.1); HYALINE CASTS 0.27 /uL (0-3.1); URINE BACTERIA 0 /uL (0-1359); URINE LEUK ESTERASE NEGATIVE (NEGATIVE); URINE NITRITE NEGATIVE (NEGATIVE); URINE PROTEIN NEGATIVE (NEGATIVE); URINE RBC 26.3 /uL (0-23.9); URINE UROBILINOGEN 0.2 mg/dL (0.2-1.0); URINE WBC 6.4 /uL (0-25.8)
[2025-02-02] MEDS ORDERED: ALPRAZolam 1 MG TABLET ONE (15:09)
[2025-02-02] MEDS: ALPRAZolam 1 MG TABLET PO PRN (15:11)
[2025-02-02] MEDS ORDERED: PANTOPRAZOLE 40 MG TABLET PO ONE (15:46)
[2025-02-02] MEDS: PANTOPRAZOLE 40 MG TABLET PO SCH (15:56)
[2025-02-02] MEDS: LACTATED RINGERS SOLUTION 1,000 ML/1,000 ML INFUS.BAG IV STA (15:56)
[2025-02-02] MEDS: KETOROLAC TROMETHAMINE 15 MG/ML VIAL IVPUSH PRN (18:17)
[2025-02-02 19:06] VITALS: BMI 31.6
[2025-02-02] MEDS: ATORVASTATIN CA 40 MG TABLET (FP) PO SCH (21:05)
[2025-02-03] MEDS: ACETAMINOPHEN 1000 MG/100 ML BAG IVPB PRN (03:56)
[2025-02-03 08:40] LABS: HEMATOCRIT 41.7 % (40.1-51.0); HEMOGLOBIN 13.9 g/dL (13.7-17.5); MCHC 33.3 g/dl (32.3-36.5); MEAN PLT VOLUME 10.7 fl (9.4-12.4); PLATELET COUNT 277 x10^3/uL (163-337); RDW 13.1 % (12.2-16.1)
[2025-02-03 09:12] LABS: POTASSIUM 3.7 mmol/L (3.5-5.1)
[2025-02-03 09:14] VITALS: BP 149/85; PULSE 74; TEMP 98.4
[2025-02-03] MEDS: ENOXAPARIN NA (PORCINE) 40 MG/0.4 ML DISP.SYRIN SQ SCH (09:15)
[2025-02-03] MEDS: TAMSULOSIN HCL 0.4 MG CAP PO SCH (09:15)
[2025-02-03] MEDS: amLODIPine BESYLATE 5 MG TABLET (FP) PO SCH (09:15)
[2025-02-03 09:24] LABS: CALCIUM 9.2 mg/dL (8.5-10.1)
[2025-02-03 09:25] LABS: ALBUMIN 3.9 g/dl (3.4-5.0); BLOOD UREA NITROGEN 7.6 mg/dL (7-18); MAGNESIUM 2.5 mg/dL (1.8-2.4)
[2025-02-03 09:28] LABS: CREATININE 0.8 mg/dL (0.55-1.3)
[2025-02-03 09:29] LABS: BILIRUBIN,TOTAL 0.6 mg/dL (0.2-1)
[2025-02-03 09:30] LABS: TOT PROT 7.5 g/dl (6.4-8.2)
[2025-02-03] MEDS: QUEtiapine FUMARATE 200 MG TABLET PO SCH (09:36)
[2025-02-03 10:58] LABS: URINE BARBITURATES NEGATIVE (NEGATIVE); URINE BENZODIAZEPINES NEGATIVE (NEGATIVE)
[2025-02-03 10:59] LABS: COCAINE, UR NEGATIVE (NEGATIVE); METHADONE, UR NEGATIVE (NEGATIVE); OPIATES, URI NEGATIVE (NEGATIVE); PHENCYCLIDINE,URINE NEGATIVE (NEGATIVE); URINE AMPHETAMINES NEGATIVE (NEGATIVE)
[2025-02-03] MEDS: ALPRAZolam 1 MG TABLET PO ONE (11:20)
[2025-02-03] MEDS: LIDOCAINE 5% TOPICAL PATCH TP SCH (11:20)
[2025-02-03] MEDS ORDERED: LIDOCAINE PATCH REMOVAL MC SCH (22:00)
== END 2025-02-03 11:54 | disposition home or self-care (01) ==
LOC: JER 09:28 → JERBED 14:56 → J5S 17:13
PROVIDERS: ADMIT Internal Medicine; ATTEND Internal Medicine
DX: R07.89 Other chest pain (principal); E87.6 Hypokalemia; K21.9 Gastro-esophageal reflux disease without esophagitis; F19.21 Other psychoactive substance dependence, in remission; D72.829 Elevated white blood cell count, unspecified; R63.4 Abnormal weight loss; R32 Unspecified urinary incontinence
CPT/HCPCS: 36415; 71046-TC-FY; 74177-TC; 80048; 80053; 80307; 81003; 83605; 83690; 83735; 84100; 84484; 85025; 85027; 85610; 85730; 86803; 86850; 86900; 86901; 87086; 87389; 93005; 93010; 99285-25; G0378; J0131; Q9967